=== PATIENT | male | born 1935 | race Caucasian/White ===

== ENCOUNTER → 2016-09-19 | Outpatient (CLI) | payer MEDICARE, BC ==
[2016-09-19 10:04] LABS: Blood Urea Nitrogen 38 mg/dL (9-20); Non-African American GFR(MDRD) >60 (>60 ml/min/1.73 sqM)
--- NOTE | 2016-09-19 11:17 | CT ---
EXAMINATION TYPE: CT angio thoracic/abd aorta DATE OF EXAM: 09/19/2016 11:06 AM COMPARISON: 09/26/2015 HISTORY: AAA CT DLP: 1546 mGycm CONTRAST: CTA thoracic and abdominal aorta with 3-D reconstruction is performed and without and with IV Contras t, patient injected with 100 mL of Omnipaque 350. Contrast CTA of the thoracic and abdominal aorta was performed from the lung apex through the base of the pelvis. 3-D reconstruction imaging obtained at a separate workstation. CT Chest: THORACIC AORTA: There is evidence for ascending thoracic aortic aneurysm at 5 cm AP dimension is unch anged from prior study. There is no evidence for dissection. Atheromatous change is noted of the thor acic aorta as well as ectasia of the distal descending thoracic aorta. Thoracic aorta at the level of the aortic hiatus measures 3.7 cm unchanged from prior study. No evidence for Aortic collection. Branch vessels are patent. LUNGS: The lungs are clear and free of infiltrate or atelectasis. No pulmonary nodule or mass is det ected. No pleural effusion. Mild fibrotic change left lower lobe. MEDIASTINUM: The heart is enlarged . No evidence for mediastinal mass or adenopathy. HILAR STRUCTURES: No evidence for mass. No hilar adenopathy is appreciated. OTHER: No significant abnormality. CONTRAST CT ABDOMEN AND PELVIS ABDOMENAL AORTA: No evidence for abdominal aortic aneurysm. No dissection. Iliac vessels are symmet deandra and patent. Atheromatous change is noted. Patent celiac, SMA RABIA and renal arteries although ca lcified plaque is noted at their origins. LIVER/GB- No significant abnormality is seen. PANCREAS- No significant abnormality is seen. SPLEEN- No significant abnormality is seen. ADRENALS-nodular thickening of the adrenal glands may reflect adenoma or hyperplasia. KIDNEYS/BLADDER-bilateral renal cystic changes noted. Renal parenchymal thinning seen bilaterally. BOWEL-sigmoid diverticulosis without diverticulitis. GENITAL ORGANS: No gross abnormality seen. LYMPH NODES- No greater than 1cm abdominal or pelvic lymph nodes areappreciated. OSSEOUS STRUCTURES- No significant abnormality is seen. OTHER- No significant abnormality is seen. IMPRESSION- 1. Stable ascending thoracic aortic aneurysm with ectasia of the descending thoracic aorta. 2. Nonaneurysmal change of the abdominal aorta. Atheromatous changes and calcified plaque at the orig ins of the SMA and renal arteries.
== END | disposition home or self-care (01) ==
LOC: RADCTMAIN 09:22
PROVIDERS: ATTEND Internal Medicine Interventional Cardiology
DX: I71.2 Thoracic aortic aneurysm, without rupture (principal); I70.1 Atherosclerosis of renal artery; I70.8 Atherosclerosis of other arteries
CPT/HCPCS: 82565; 84520; 75635; 71275; 36415; Q9967

== ENCOUNTER → 2016-09-25 | Outpatient (CLI) | payer MEDICARE, BC ==
[2016-09-25 10:53] LABS: Anion Gap 10 mmol/L; Blood Urea Nitrogen 35 mg/dL (9-20); Calcium 9.9 mg/dL (8.4-10.2); Carbon Dioxide 29 mmol/L (22-30); Chloride 103 mmol/L (98-107); Glucose 124 mg/dL (74-99); Non-African American GFR(MDRD) 58 (>60 ml/min/1.73 sqM); Potassium 5.2 mmol/L (3.5-5.1); Sodium 142 mmol/L (137-145)
== END | disposition home or self-care (01) ==
LOC: LABWHC1 10:00
PROVIDERS: ATTEND Internal Medicine Interventional Cardiology
DX: I48.2 Chronic atrial fibrillation (principal)
CPT/HCPCS: 36415; 80048; 84443

== ENCOUNTER → 2017-11-12 | Outpatient (CLI) | payer MEDICARE, BC ==
[2017-11-12 10:10] LABS: Blood Urea Nitrogen 20 mg/dL (9-20)
--- NOTE | 2017-11-12 12:46 | CT ---
EXAMINATION TYPE: CT angio chest DATE OF EXAM: 11/12/2017 COMPARISON: CTA aorta September 19, 2016 and older studies HISTORY: Aortic aneurysm without rupture per order. CT DLP: 1078 mGycm. Automated Exposure Control for Dose Reduction was Utilized. CONTRAST: CTA scan of the thorax is performed without and with IV Contrast, patient injected with 100 ml mL of Isovue 370, aneurysm protocol. Three-D Images are created on independent workstation and reviewed. FINDINGS: LUNGS: Mild to moderate underlying emphysematous change most prominent in the upper lungs is redemons trated. There is bibasilar scarring and/or atelectasis. There is no pleural effusion or pneumothora x seen bilaterally. The tracheobronchial tree is patent. MEDIASTINUM: There are no greater than 1 cm hilar or mediastinal lymph nodes. No pericardial effusi on is seen. Cardiomegaly is redemonstrated. There is severe three-vessel coronary artery calcificatio n which is noted marker for coronary artery disease, there is probable stent in the proximal LAD. There is persistent aneurysm of the ascending aorta measuring up to 5.2 cm in diameter axial image 27 slightly larger versus most recent study. No aneurysmal extension into arch or descending aorta is p resent. There is persistent moderate mixed plaque in the arch and descending aorta. Some ectatic cour se of the distal thoracic aorta is redemonstrated. No linear hypodensity to suggest dissection is see n. Adjacent main pulmonary artery remains dilated at 4.2 cm axial image 27, CT findings consistent wi th underlying pulmonary artery hypertension. OTHER: Slight thickening to both adrenal glands, left greater than right favors hyperplasia. There ar e a few simple appearing cysts redemonstrated throughout the right kidney with cortical thinning. Cor tical thinning with exophytic septated cyst anteriorly in the left kidney that is stable. Bilateral g ynecomastia is redemonstrated. There is multilevel moderate to severe spurring in the thoracic spine with multilevel disc space narrowing and vacuum disc phenomenon. Some scattered colonic diverticula a re redemonstrated. IMPRESSION: Slight interval increase in size of ascending aortic aneurysm measuring 5.2 cm in size cu rrently.
== END | disposition home or self-care (01) ==
LOC: RADCTMAIN 09:24
PROVIDERS: ATTEND Internal Medicine Interventional Cardiology
DX: I71.9 Aortic aneurysm of unspecified site, without rupture (principal); I71.2 Thoracic aortic aneurysm, without rupture
CPT/HCPCS: 82565; 84520; 71275; 36415; Q9967

== ENCOUNTER → 2018-12-08 | Outpatient (CLI) | payer MEDICARE, BC ==
[2018-12-08 11:20] LABS: African American GFR (CKD) >90 (>60 ml/min/1.73 sqM); Blood Urea Nitrogen 25 mg/dL (9-20)
--- NOTE | 2018-12-08 23:48 | CT ---
EXAMINATION TYPE: CT angio chest DATE OF EXAM: 12/08/2018 COMPARISON: 11/12/2017 HISTORY: 83-year-old male Thoracic aortic aneurysm without rupture TECHNIQUE: Contiguous axial scanning of the chest performed with IV Contrast, patient injected with 1 00 mL of Isovue 370. Coronal/sagittal MIP reconstructions performed. 3-D reconstructions generated on a dedicated independent workstation. CT DLP: 592.1 mGycm Automated exposure control for dose reduction was used. FINDINGS: Heart is mildly enlarged without pericardial effusion. Extensive coronary vessel calcifications are p resent. Aortic root remains mildly aneurysmal at 4.3 cm. Ascending aorta aneurysmal at 5.1 cm. Proximal arch aneurysmal at 5.0 cm. Conventional contrast branching anatomy with mild to moderate atherosclerotic calcifications. Upper descending thoracic aorta aneurysmal at 3.6 cm. The mid to lower descending thoracic aorta is tortuous measuring 3.5 and 3.9 cm at their mid and dist al aspects, unchanged. Moderate atherosclerotic calcifications abdominal aorta. Colonic diverticulosis with mild to moderate stool burden and bilateral renal cysts redemonstrated. Large caliber to the main right and left pulmonary arteries measuring up to 3.5 cm. Mild bilateral gynecomastia. No thoracic lymphadenopathy. Mild diffuse bronchial wall thickening and mild to moderate emphysematous change. No consolidation or pleural effusion. Some interstitial changes redemonstrated in lower lungs suggesting chronic interst itial fibrotic change. Bones: End-stage degenerative change of both shoulders. Moderate degenerative disc disease throughout . IMPRESSION: 1. RELATIVELY STABLE ANEURYSMAL THORACIC AORTA (ROOT 4.37 M, ASCENDING 5.1 CM PROXIMAL ARCH 5.0 CM, U PPER DESCENDING 3.6 CM, AND LOWER DESCENDING 3.9 CM). 2. COPD WITH MILD TO MODERATE EMPHYSEMA AND PULMONARY ARTERIAL HYPERTENSION. 3. CAD.
== END | disposition home or self-care (01) ==
LOC: RADCTMAIN 10:38
PROVIDERS: ATTEND Internal Medicine Interventional Cardiology
DX: I71.2 Thoracic aortic aneurysm, without rupture (principal); J43.9 Emphysema, unspecified; I27.21 Secondary pulmonary arterial hypertension; I25.10 Atherosclerotic heart disease of native coronary artery without angina pectoris
CPT/HCPCS: 82565; 84520; 71275; 36415; Q9967

== ENCOUNTER 2020-01-29 14:11 | Emergency (ER) | payer MEDICARE, BC ==
[2020-01-29 14:21] VITALS: RESP 18
[2020-01-29] MEDS ORDERED: LIDOCAINE 1%-EPI 1:100,000 20 ML VIAL SQ STA (14:46)
[2020-01-29] MEDS ORDERED: DIPH,PERTUS(ACELL)TETVAC-LF 0.5 ML VIAL IM ONE (14:46)
--- NOTE | 2020-01-29 15:01 | ED ---
General Adult HPI - General Source: patient, RN notes reviewed Mode of arrival: wheelchair Limitations: no limitations <Bam Hall - Last Filed: 01/29/20 15:34> <Enoch Michael - Last Filed: 01/29/20 15:39> - General Chief complaint: Head Injury Stated complaint: Fall - Head Lac Time Seen by Provider: 01/29/20 14:31 - History of Present Illness Initial comments: 84-year-old male currently taking Eliquis for atrial fibrillation presents to the emergency room for a chief complaint of head injury. Patient reports that he was having a great day. States he went to [employer] to drop off a donation and then went to the grocery store. Reports that he was carrying in a few bags of groceries. He went to grab onto a pole to take a step and fell after losing his balance. He hit left side of his head. Patient did not fall down a stair. Patient denies neck pain. Denies any other injuries. Reports that he did not lose consciousness. He could not get the bleeding to stop so decided to be evaluated. Patient has no other complaints at this time including shortness of breath, chest pain, abdominal pain, nausea or vomiting, headache, or visual changes. (Bam Hall) - Related Data Home Medications Medication Instructions Recorded Confirmed Acetaminophen Tab [Tylenol] 500 mg PO TID PRN 10/04/13 08/24/15 Doxazosin Mesylate [Cardura Xl] 4 mg PO DAILY 10/04/13 08/23/15 Lisinopril-Hctz 20-12.5 mg 1 tab PO DAILY 10/04/13 08/23/15 [Zestoretic 20-12.5] Spironolactone [Aldactone] 25 mg PO DAILY 10/04/13 08/23/15 Carbidopa-Levodopa 25-100 mg 0.5 tab PO TID 04/26/15 08/23/15 [Sinemet 25-100 mg] Multivitamins, Thera [Multivitamin 1 tab PO DAILY 04/26/15 08/23/15 (formulary)] nadoloL [Corgard] 20 mg PO HS 07/06/15 08/24/15 Atorvastatin [Lipitor] 40 mg PO DAILY 08/01/15 08/24/15 Carbidopa 25 mg PO BID 08/23/15 08/23/15 Previous Rx's Medication Instructions Recorded Apixaban [Eliquis] 2.5 mg PO BID tablet 05/01/15 Amiodarone [Cordarone] 200 mg PO DAILY #90 tab 08/04/15 Allergies Allergy/AdvReac Type Severity Reaction Status Date / Time No Known Allergies Allergy Verified 01/29/20 14:16 Review of Systems ROS Other: All systems not noted in ROS Statement are negative. <Bam Hall P - Last Filed: 01/29/20 15:34> ROS Other: All systems not noted in ROS Statement are negative. <Enoch Michael - Last Filed: 01/29/20 15:39> ROS Statement: Those systems with pertinent positive or pertinent negative responses have been documented in the HPI. Past Medical History Past Medical History: Atrial Fibrillation, Hypertension, Neurologic Disorder, Prostate Disorder Additional Past Medical History / Comment(s): BPH, L knee pain, Parkinson's History of Any Multi-Drug Resistant Organisms: None Reported Past Surgical History: Joint Replacement, Tonsillectomy Additional Past Surgical History / Comment(s): Total L knee arthroplasty, colonoscopy 2008, bilateral cataract removal. Past Anesthesia/Blood Transfusion Reactions: No Reported Reaction Additional Past Anesthesia/Blood Transfusion Reaction / Comment(s): Pt states he has never received blood. Past Psychological History: No Psychological Hx Reported Past Alcohol Use History: Rare Past Drug Use History: None Reported - Past Family History Father History Unknown: Yes Family Medical History: Unable to Obtain Additional Family Medical History / Comment(s): Pt did not grow up knowing father. Mother Family Medical History: No Reported History Additional Family Medical History / Comment(s): Mother was healthy. She at age 76yrs. <Bam Hall P - Last Filed: 01/29/20 15:34> General Exam Limitations: no limitations General appearance: alert, in no apparent distress Head exam: Present: normocephalic. Absent: atraumatic (patient has a 4 cm laceration noted to R occipital parietal skull) Eye exam: Present: normal appearance, PERRL, EOMI. Absent: scleral icterus, conjunctival injection, periorbital swelling ENT exam: Present: normal exam, normal oropharynx, mucous membranes moist, TM's normal bilaterally, normal external ear exam Neck exam: Present: normal inspection, full ROM. Absent: tenderness (no cervical spine tenderness), meningismus, lymphadenopathy Respiratory exam: Present: normal lung sounds bilaterally. Absent: respiratory distress, wheezes, rales, rhonchi, stridor Cardiovascular Exam: Present: regular rate, normal rhythm, normal heart sounds. Absent: systolic murmur, diastolic murmur, rubs, gallop, clicks GI/Abdominal exam: Present: soft, normal bowel sounds. Absent: distended, tenderness, guarding, rebound, rigid Extremities exam: Absent: other (no traumatic injuries) Neurological exam: Present: alert, oriented X3, other (GCS 15) <Bam Hall P - Last Filed: 01/29/20 15:34> Course Vital Signs 01/29/20 14:14 Temperature 98.6 F Pulse Rate 75 Respiratory 18 Rate Blood Pressure 158/81 O2 Sat by Pulse 98 Oximetry Procedures - Laceration Laceration #1 Consent Obtained: verbal consent Indication: laceration Site: scalp Size (cm): 4 Description: linear Depth: simple, single layer Anesthetic Used: lidocaine 1%, with epi Anesthesia Technique: local infiltration Amount (mls): 4 Pre-repair: wound explored, irrigated extensively, deep structures intact Type of Sutures: other (Juan Ramon) Number of Sutures: 7 Technique: simple, interrupted Patient Tolerated Procedure: well, no complications <Bam Hall P - Last Filed: 01/29/20 15:34> Medical Decision Making <Bam Hall P - Last Filed: 01/29/20 15:34> <Enoch Michael N - Last Filed: 01/29/20 15:39> - Medical Decision Making CT brain shows age-related atrophic and chronic small vessel ischemic changes without acute intracranial process. CT cervical spine shows no evidence for acute fracture or subluxation. [place] were used to approximate the wound margins after thorough irrigation with saline pressure. Patient will get a ride home from his son given he did hit his head and could develop symptoms of concussion. I did discuss to return here. Worsening symptoms. Otherwise he will follow-up with his doctor in one to 2 days. (Bam Hall) 84-year-old male with mechanical fall, head injury, head CT performed, negative for intracranial hemorrhage or mass effect. Patient is otherwise well- appearing, resting comfortably. The laceration was repaired with juan ramon. He will follow-up with his primary care physician and return with worsening or changing symptoms. (Enoch Michael) Disposition Is patient prescribed a controlled substance at d/c from ED?: No Time of Disposition: 15:32 <Bam Hall - Last Filed: 01/29/20 15:34> <Enoch Michael - Last Filed: 01/29/20 15:39> Clinical Impression: Head injury, Laceration Disposition: HOME SELF-CARE Condition: Good Instructions (If sedation given, give patient instructions): Laceration (ED), Head Injury (ED), Staple Care (ED) Additional Instructions: Please keep the area clean and dry. You can take short showers. Follow-up with your doctor in one to 2 days for a recheck. If you have any worsening symptoms return to the emergency room. Otherwise return in 7-10 days for staple removal. Referrals: Howei Martinez MD [Primary Care Provider] - 1-2 days
--- NOTE | 2020-01-29 15:15 | CT ---
EXAMINATION TYPE: CT brain bernard marcial DATE OF EXAM: 01/29/2020 COMPARISON: None HISTORY: Trip and fall. Head injury. CT DLP: 1485.[address] of the brain was performed. The ventricles, basal cisterns and sulci overlying the cerebral convexities demonstrate mild enlargem ent. There is no evidence for intracranial hemorrhage or sulcal effacement. There is decreased attenuatio n about the periventricular white matter and deep white matter of both cerebral hemispheres, compatib le with chronic small vessel ischemia. No mass effects are seen. If symptoms persist consider MRI. Osseous calvarium is intact. IMPRESSION: 1. Age related atrophic and chronic small vessel ischemic change without acute intracranial process seen at this time. CT Cervical Spine: Unenhanced CT of the cervical spine was performed with bone and soft tissue window settings submitted . Coronal and sagittal reconstruction is obtained. There is normal alignment and prevertebral soft tissues. No evidence for acute cervical fracture . Scattered degenerative disc disease and spondylosis. Biapical scarring. IMPRESSION: 1. No evidence for acute fracture or subluxation of the cervical spine.
[2020-01-29 15:41] VITALS: BP 123/98; PULSE 54; TEMP 98.3
== END 2020-01-29 15:40 | disposition home or self-care (01) ==
LOC: EC 14:11
DX: S01.01XA Laceration without foreign body of scalp, initial encounter (principal); I48.91 Unspecified atrial fibrillation; I10 Essential (primary) hypertension; N40.0 Benign prostatic hyperplasia without lower urinary tract symptoms; G20 Parkinson's disease; Z23 Encounter for immunization; Z79.01 Long term (current) use of anticoagulants; Z79.899 Other long term (current) drug therapy; Z98.42 Cataract extraction status, left eye; Z98.41 Cataract extraction status, right eye; Z96.652 Presence of left artificial knee joint; W01.10XA Fall on same level from slipping, tripping and stumbling with subsequent striking against unspecified object, initial encounter; Y93.39 Activity, other involving climbing, rappelling and jumping off; Y92.89 Other specified places as the place of occurrence of the external cause
CPT/HCPCS: 12002; 70450; 72125; 90471; 90715; 99283

== ENCOUNTER 2020-10-25 15:31 | Inpatient (IN) | payer MEDICARE, BC ==
[2020-10-28 08:38] VITALS: BP 112/64; PULSE 103; RESP 16; TEMP 97.9
== END 2020-10-28 12:17 | disposition home health service (06) | DRG 281 ==
LOC: EC 15:31 → 3SCARD 18:47
PROVIDERS: ADMIT Internal Medicine; ATTEND Internal Medicine
DX: I21.4 Non-ST elevation (NSTEMI) myocardial infarction (principal); I50.22 Chronic systolic (congestive) heart failure; E78.5 Hyperlipidemia, unspecified; G20 Parkinson's disease; I11.0 Hypertensive heart disease with heart failure; I25.10 Atherosclerotic heart disease of native coronary artery without angina pectoris; I25.5 Ischemic cardiomyopathy; I44.4 Left anterior fascicular block; I27.20 Pulmonary hypertension, unspecified; I08.1 Rheumatic disorders of both mitral and tricuspid valves; R39.2 Extrarenal uremia; I48.0 Paroxysmal atrial fibrillation; N40.0 Benign prostatic hyperplasia without lower urinary tract symptoms; Z79.01 Long term (current) use of anticoagulants; Z79.899 Other long term (current) drug therapy; Z87.891 Personal history of nicotine dependence; Z96.652 Presence of left artificial knee joint; Z60.2 Problems related to living alone; Z98.42 Cataract extraction status, left eye; Z98.41 Cataract extraction status, right eye; Z98.890 Other specified postprocedural states; Z90.89 Acquired absence of other organs
CPT/HCPCS: 36415; 71045; 80048; 80053; 83605; 83735; 83880; 84484; 85025; 85027; 85610; 85730; 87040; 93005; 93306; 94760; 99285

== ENCOUNTER 2020-11-14 12:25 | Inpatient (IN) | payer MEDICARE, BC ==
[2020-11-14] MEDS ORDERED: ASPIRIN 81 MG PO STA (13:15)
[2020-11-14] MEDS ORDERED: ATROPINE SULFATE 0.1 MG/ML 10ML SYRINGE IV STA ×2 (13:16→14:25)
[2020-11-14] MEDS ORDERED: LIDOCAINE 5% PATCH TOPICAL STA (13:18)
[2020-11-14 13:27] LABS: Basophils % (A) 0 %; Eosinophils # (A) 0.1 k/uL (0-0.7); Eosinophils % (A) 2 %; HCT 39.4 % (39.0-53.0); HGB 13.5 gm/dL (13.0-17.5); Lymphocytes # (A) 0.8 k/uL (1.0-4.8); Lymphocytes % (A) 12 %; MCH 32.6 pg (25.0-35.0); MCHC 34.2 g/dL (31.0-37.0); MCV 95.1 fL (80.0-100.0); Mean Platelet Volume 7.7; Monocytes # (A) 0.4 k/uL (0-1.0); Monocytes % (A) 6 %; Neutrophils # (A) 5.4 k/uL (1.3-7.7); Neutrophils % (A) 79 %; Platelet Count 149 k/uL (150-450); RBC 4.15 m/uL (4.30-5.90); RDW 13.6 % (11.5-15.5); WBC 6.9 k/uL (3.8-10.6)
[2020-11-14 13:39] LABS: Prothrombin Time 10.6 sec (9.0-12.0)
[2020-11-14 13:40] LABS: Partial Thromboplastin Time 23.3 sec (22.0-30.0)
[2020-11-14 13:43] LABS: ALT <6 U/L (4-49); AST 32 U/L (17-59); African American GFR (CKD) 61 (>60 ml/min/1.73 sqM); Albumin 3.8 g/dL (3.5-5.0); Alkaline Phosphatase 57 U/L (38-126); Anion Gap 4 mmol/L; Blood Urea Nitrogen 44 mg/dL (9-20); Calcium 9.9 mg/dL (8.4-10.2); Carbon Dioxide 31 mmol/L (22-30); Chloride 104 mmol/L (98-107); Glucose 105 mg/dL (74-99); Magnesium 2.2 mg/dL (1.6-2.3); Non-African American GFR(CKD) 53 (>60 ml/min/1.73 sqM); Potassium 4.8 mmol/L (3.5-5.1); Sodium 139 mmol/L (137-145); Total Bilirubin 1.2 mg/dL (0.2-1.3); Total Protein 6.2 g/dL (6.3-8.2)
--- NOTE | 2020-11-14 14:18 | XR ---
EXAMINATION TYPE: XR chest 1V portable DATE OF EXAM: 11/14/2020 COMPARISON: 10/25/2020 HISTORY: Chest pain TECHNIQUE: Single frontal view of the chest is obtained. FINDINGS: Low lung volumes. Heart size is grossly enlarged, stable. Perihilar interstitial prominenc e is suggestive of edema. Patchy left basilar airspace opacity may represent atelectasis or pneumonit is. Probable small bilateral pleural effusions. No pneumothorax. IMPRESSION: 1. Findings may represent early congestive heart failure. Patchy left basilar airspace opacity may re present atelectasis or pneumonitis.
[2020-11-14] MEDS ORDERED: HEPARIN SODIUM 1,000 UN/ML (10ML VL) IV PRN (15:04)
[2020-11-14] MEDS ORDERED: HEPARIN SODIUM 1,000 UN/ML (10ML VL) IV ONE (15:04)
[2020-11-14] MEDS ORDERED: HEPARIN SOD,PORK IN 0.45% NACL 25,000 UNIT in 0.45% NACL 1 250ML.BAG IV SCH (15:15)
[2020-11-14] MEDS ORDERED: ACETAMINOPHEN TAB 325 MG TAB PO PRN (15:26)
--- NOTE | 2020-11-14 15:44 | ED ---
Chest Pain HPI - General Chief Complaint: Chest Pain Stated Complaint: SOB Time Seen by Provider: 11/14/20 13:10 Source: patient Mode of arrival: ambulatory Limitations: no limitations - History of Present Illness Initial Comments: Patient is an 85-year-old male with past medical history remarkable for atrial fibrillation, heart failure, hypertension who presents emergency Department complaining of acute onset of shortness of breath and chest pressure sensation. This happened this morning. Patient's son brought him to the emergency department for evaluation. Patient has taken every one of his morning medications this morning including his beta bret. He recently was discharged from the hospital with cardiomyopathy. Troponin is also positive at that time. He was discharged on October 28. Patient states that this morning he had sudden onset of pressure sensation on the left side of his chest that has since somewhat improving as well as subjective shortness of breath. He states he was sitting down when this occurred. Denies any fevers, chills, cough. He denies any lightheadedness, blurry vision, abdominal discomfort, nausea, vomiting. Patient otherwise has no acute complaints at this time. Patient was brought for evaluation of this chest discomfort. He was found to be bradycardic into the low 40s when he arrived. Patient's son does have a list of prior vital signs taken over the last few weeks, and heart rate occasionally would dip into the low 40s and was consistently in the 50s and 60s. Patient otherwise has no acute complaints at this time. He has been compliant with all medications. - Related Data Home Medications Medication Instructions Recorded Confirmed Acetaminophen Tab [Tylenol] 1,000 mg PO Q6H PRN 10/04/13 11/14/20 Doxazosin Mesylate [Cardura Xl] 4 mg PO DAILY 10/04/13 11/14/20 Lisinopril-Hctz 20-12.5 mg 0.5 tab PO DAILY 10/04/13 11/14/20 [Zestoretic 20-12.5] Spironolactone [Aldactone] 12.5 mg PO DAILY 10/04/13 11/14/20 Carbidopa-Levodopa 25-100 mg 1 tab PO BID 04/26/15 11/14/20 [Sinemet 25-100 mg] Multivitamins, Thera [Multivitamin 1 tab PO DAILY 04/26/15 11/14/20 (formulary)] nadoloL [Corgard] 10 mg PO BID 07/06/15 11/14/20 Atorvastatin [Lipitor] 40 mg PO DAILY 08/01/15 11/14/20 Carbidopa-Levodopa ER 25-100Mg 1 tab PO BID 10/25/20 11/14/20 [Sinemet CR 25-100 mg] traZODone HCL 50 mg PO HS PRN 10/25/20 11/14/20 Previous Rx's Medication Instructions Recorded Apixaban [Eliquis] 2.5 mg PO BID tablet 05/01/15 Aspirin 81 mg PO DAILY chew 10/28/20 Isosorbide Mononitrate ER [Imdur] 30 mg PO DAILY #30 tab.er.24h 10/28/20 Allergies Allergy/AdvReac Type Severity Reaction Status Date / Time No Known Allergies Allergy Verified 11/14/20 12:40 Review of Systems ROS Statement: Those systems with pertinent positive or pertinent negative responses have been documented in the HPI. Review of Systems: CONST: Denies fever EYES: Denies blurry vision ENT: Denies nasal congestion C/V: Endorses chest pain RESP: Endorses shortness of breath GI: Denies abdominal pain : Denies dysuria SKIN: Denies rash. MSK: Denies joint pain. NEURO: Denies headache ROS Other: All systems not noted in ROS Statement are negative. EKG Findings - EKG Comments: EKG Findings:: 12-lead Electrocardiogram Interpretation Note. EKG was reviewed and interpreted by myself. 12-lead ECG performed at 1301 is interpreted by me as revealing sinus bradycardia with premature supraventricular complexes at a rate of 44 beats per minute. [place] is normal. RI interval is 202 ms, QRS duration is 110 ms, QTc is 417 ms.. There are isolated T-wave inversions in lead V6 and III.. R wave progression across the precordium was satisfactory. By my interpretation this EKG is non-diagnostic for acute ischemia. Past Medical History Past Medical History: Atrial Fibrillation, Hypertension, Neurologic Disorder, Prostate Disorder Additional Past Medical History / Comment(s): BPH, L knee pain, Parkinson's History of Any Multi-Drug Resistant Organisms: None Reported Past Surgical History: Joint Replacement, Tonsillectomy Additional Past Surgical History / Comment(s): Total L knee arthroplasty, c olonoscopy 2008, bilateral cataract removal. Past Anesthesia/Blood Transfusion Reactions: No Reported Reaction Additional Past Anesthesia/Blood Transfusion Reaction / Comment(s): Pt states he has never received blood. Past Psychological History: No Psychological Hx Reported Smoking Status: Former smoker Past Alcohol Use History: Rare Past Drug Use History: None Reported - Past Family History Father History Unknown: Yes Family Medical History: Unable to Obtain Additional Family Medical History / Comment(s): Pt did not grow up knowing fathe r. Mother Family Medical History: No Reported History Additional Family Medical History / Comment(s): Mother was healthy. She at age 76yrs. General Exam - General Exam Comments Initial Comments: General: Appears in no acute distress. HEAD: Normal with no signs of head trauma. EYES: PERRLA, EOMI, conjunctiva normal, no discharge. ENT: Hearing grossly intact, normal oropharynx. RESPIRATORY: Clear breath sounds bilaterally. No wheezes, rales, or rhonchi. C/V: Patient has sinus bradycardia with a regular rhythm. S1 and S2 auscultated. No peripheral edema. Peripheral pulses are 2+ and intact throughout. ABD: Abd is soft, nontender, nondistended EXT: Normal range of motion, no obvious deformity SKIN: No rashes or lesions observed on exposed skin. NEURO: Alert and oriented 4. Able to move all 4 extremities. No obvious sensory deficits. Limitations: no limitations Course Vital Signs 11/14/20 11/14/20 11/14/20 12:40 13:09 13:30 Temperature 97.4 F L Pulse Rate 51 L 42 L 45 L Pulse Rate [ [employer] ] Respiratory 16 18 18 Rate Blood Pressure 96/93 136/101 132/89 O2 Sat by Pulse 98 100 99 Oximetry 11/14/20 11/14/20 11/14/20 14:08 14:57 16:51 Temperature 97.6 F Pulse Rate 40 L 40 L 41 L Pulse Rate [ 40 L [employer] ] Respiratory 16 16 16 Rate Blood Pressure 127/80 135/98 O2 Sat by Pulse 100 100 98 Oximetry Chest Pain MDM - Core Measures AMI Core Measures Followed: Yes - MDM Based on the patient's presentation and physical exam, I'm concerned for possible cardiogenic cause for his chest pressure as well as shortness of breath. Patient states that the shortness of breath is improved at this point, however I would still like to obtain a cardiac workup including EKG, chest x- ray, troponin, basic laboratory studies. He'll be connected to continuous cardiac monitoring. As he is having some symptoms at this time with bradycardia dipping occasionally into the low 40s and 39 bpm, I will administered 0.5 mg of atropine. Also be given 325 mg of aspirin. He is complaining of some right lower back pain that is chronic and is asking for a pain patch, and therefore lidocaine patch will be administered. He does have a history of sciatica in there. Patient was in agreement with this plan. Patient's heart score is high. Patient's EKG shows sinus bradycardia and is nondiagnostic for acute ischemia at this time. Patient's chest x-ray reveals a patchy left basilar airspace opacity that may represent atelectasis or pneumonitis. Laboratory studies are remarkable for a mild thrombocyte teetee of 129, and elevated bicarbonate 31, and an elevated troponin of 0.061. Reevaluation, patient once again was bradycardiac at 39, 0.5 mg of atropine was once again administered. Patient's heart rate after this remained in the high 40s to 50s. He remained a symptomatically and states that his chest discomfort as well as the shortness of breath is resolved. Vital signs have remained stable. I did do a point of care echo to check for signs of volume overload, and it does appear that the patient can handle 1 L fluid bolus which was administered. He has no B lines to suggest pulmonary edema. IVC is within normal limits. On reevaluation, the patient remained stable. I did discuss with him that it does appear that he is having a NSTEMI and I would like to admit him to the hospital for further management. He was in agreement with this plan. Patient was started on a heparin drip. I consulted cardiology and they were in agreement with the plan. Also contacted the admitting physician who accepted the patient. Patient will be administered on telemetry. Patient was admitted in serious condition. Disposition Clinical Impression: NSTEMI (non-ST elevated myocardial infarction), Bradycardia, Thrombocytopenia, Chest pain Disposition: ADMITTED IP TO THIS HOSP Condition: Serious Referrals: Cira Ross MD [Primary Care Provider] - 1-2 days Decision to Admit Reason: Admit from EC
[2020-11-14] MEDS ORDERED: NALOXONE 0.4 MG/ML 1 ML VIAL IV PRN (16:08)
--- NOTE | 2020-11-14 16:46 | P.HPIM ---
History of Present Illness H&P Date: 11/14/20 Chief Complaint: Chest pressure, dyspnea 85-year-old man with medical history of paroxysmal atrial fibrillation on Eliquis, ischemic cardiomyopathy with ejection fraction 45-50%, CAD, hypertension, hyperlipidemia, CKD stage III, BPH, Parkinsons presented for chest pressure and dyspnea. History is provided by patient's son who is at bedside, due to patient being moderate historian. History also supplemented from chart review. Patient was recently admitted and discharged approximately 3 weeks ago for myocardial infarction without ST elevation which was medically managed due to history of tortuous coronary arteries. By the day of discharge he was doing well, able to ambulate without chest pain. Echocardiogram at that time revealed improved ejection fraction to 40-45% from his prior in 2016 which was 30-35%. He has been in his usual state of health, until approximately 2 days ago according to his son. At that time, he started to develop some shortness of srinivas ath especially with exertion which was worse than his baseline. Last night, he also developed some shortness of breath while at rest. In addition, he started to notice chest pressure today. Given his constellation of symptoms, the son thought it would be prudent to have patient evaluated in the emergency room. Patient denies fevers, chills, nausea, vomiting, cough, palpitations, abdominal pain, consultation, diarrhea, numbness/weakness. Patient does report mild weight gain of 5 pounds. Patient denies orthopnea. Patient reports mild chest pressure, dyspnea. In the emergency room, patient was afebrile, normotensive, but noted to have bradycardia down to the 30s and received 2 pushes of atropine with heart rates increasing to mid to high 40s. Patient was in atrial fibrillation, then converted to sinus rhythm on telemetry. Chest x-ray demonstrated early congestive heart failure changes. Troponin was elevated. Review of Systems All Systems reviewed and pertinent positives and negatives noted in HPI, all other symptoms are negative Past Medical History Past Medical History: Atrial Fibrillation, Hypertension, Neurologic Disorder, Prostate Disorder Additional Past Medical History / Comment(s): BPH, L knee pain, Parkinson's History of Any Multi-Drug Resistant Organisms: None Reported Past Surgical History: Joint Replacement, Tonsillectomy Additional Past Surgical History / Comment(s): Total L knee arthroplasty, colonoscopy 2008, bilateral cataract removal. Past Anesthesia/Blood Transfusion Reactions: No Reported Reaction Additional Past Anesthesia/Blood Transfusion Reaction / Comment(s): Pt states he has never received blood. Past Psychological History: No Psychological Hx Reported Smoking Status: Former smoker Past Alcohol Use History: Rare Past Drug Use History: None Reported - Past Family History Father History Unknown: Yes Family Medical History: Unable to Obtain Additional Family Medical History / Comment(s): Pt did not grow up knowing father. Mother Family Medical History: No Reported History Additional Family Medical History / Comment(s): Mother was healthy. She at age 76yrs. Medications and Allergies Home Medications Medication Instructions Recorded Confirmed Type Acetaminophen Tab [Tylenol] 1,000 mg PO Q6H PRN 10/04/13 11/14/20 History Doxazosin Mesylate [Cardura Xl] 4 mg PO DAILY 10/04/13 11/14/20 History Lisinopril-Hctz 20-12.5 mg 0.5 tab PO DAILY 10/04/13 11/14/20 History [Zestoretic 20-12.5] Spironolactone [Aldactone] 12.5 mg PO DAILY 10/04/13 11/14/20 History Carbidopa-Levodopa 25-100 mg 1 tab PO BID 04/26/15 11/14/20 History [Sinemet 25-100 mg] Multivitamins, Thera [Multivitamin 1 tab PO DAILY 04/26/15 11/14/20 History (formulary)] Apixaban [Eliquis] 2.5 mg PO BID tablet 05/01/15 11/14/20 Rx nadoloL [Corgard] 10 mg PO BID 07/06/15 11/14/20 History Atorvastatin [Lipitor] 40 mg PO DAILY 08/01/15 11/14/20 History Carbidopa-Levodopa ER 25-100Mg 1 tab PO BID 10/25/20 11/14/20 History [Sinemet CR 25-100 mg] traZODone HCL 50 mg PO HS PRN 10/25/20 11/14/20 History Aspirin 81 mg PO DAILY chew 10/28/20 11/14/20 Rx Isosorbide Mononitrate ER [Imdur] 30 mg PO DAILY #30 tab.er.24h 10/28/20 11/14/20 Rx Allergies Allergy/AdvReac Type Severity Reaction Status Date / Time No Known Allergies Allergy Verified 11/14/20 12:40 Physical Exam Osteopathic Statement: *. No significant issues noted on an osteopathic structural exam other than those noted in the History and Physical/Consult. Vitals: Vital Signs Temp Pulse Pulse Resp BP Pulse Ox 11/14/20 14:57 40 L 16 135/98 100 11/14/20 14:08 97.6 F 40 L 40 L 16 127/80 100 11/14/20 13:30 45 L 18 132/89 99 11/14/20 13:09 42 L 18 136/101 100 11/14/20 12:40 97.4 F L 51 L 16 96/93 98 Intake and Output 11/14/20 11/14/20 11/14/20 06:59 14:59 22:59 Other: Weight 86.636 kg Gen: awake, alert HEENT: normocephalic, atraumatic, poor hearing acuity, moist mucous membranes, positive JVD Resp: Bilateral crackles in the posterior bases, equal chest expansion, adequate air exchange CVS: Irregular rhythm, bradycardic, no appreciable murmurs GI: soft, NTTP, ND, appropriate bowel sounds : no SPT, no CVAT, olivera catheter not present MSK: Trace to 1+ pitting edema, no clubbing Neuro: non-focal, moving all extremities Psych: cooperative, euthymic mood Results CBC & Chem 7: 11/14/20 13:04 11/14/20 13:04 Labs: Abnormal Lab Results - Last 24 Hours (Table) 11/14/20 11/14/20 11/14/20 Range/Units 13:04 13:04 13:04 RBC 4.15 L (4.30-5.90) m/uL Plt Count 149 L (150-450) k/uL Lymphocytes # 0.8 L (1.0-4.8) k/uL Carbon Dioxide 31 H (22-30) mmol/L BUN 44 H (9-20) mg/dL Glucose 105 H (74-99) mg/dL Troponin I 0.061 H* (0.000-0.034) ng/mL Total Protein 6.2 L (6.3-8.2) g/dL Assessment and Plan Assessment: Acute on chronic systolic heart failure exacerbation Elevated troponin, likely type II [place] -Admit to inpatient, telemetry -Cardiology consult -Strict I/os, daily weights -Lasix 40mg daily -Will not repeat echo due to recent exam -Trend troponins -EKG when necessary for bradycardia less than 40 or chest pain -Hold beta bret,, other AV claude blocking agents -Resume home aspirin, statin Paroxysmal atrial fibrillation with slow ventricular response -Patient sought was was held, started on heparin drip -Beta bret held as above -Monitoring on telemetry, EKG when necessary for bradycardia CAD HTN HLD Parkinson's BPH -Home meds reviewed and reconciled -Patient Eliquis was was held in lieu of heparin -Patient's combination lisinoprilhydrochlorothiazide pill was discontinued, lisinopril at equivalent dose was started -Nadolol was held as above -All other home medications resumed Patient is a full code Son is the DURABLE POWER OF [employer] PIPING DESIGNER DVT prophylaxis addressed with heparin drip
[2020-11-14] MEDS: CARBIDOPA-LEVODOPA 25-100 MG 1 EACH TAB PO SCH (20:20)
[2020-11-14] MEDS: CARBIDOPA-LEVODOPA ER 25-100MG 1 EACH TABLET.ER PO SCH (20:20)
[2020-11-14] MEDS: traZODone HCL 50 MG TAB PO PRN (20:20)
[2020-11-15 05:14] LABS: Basophils % (A) 0 %; Eosinophils # (A) 0.1 k/uL (0-0.7); Eosinophils % (A) 2 %; HCT 38.5 % (39.0-53.0); HGB 12.9 gm/dL (13.0-17.5); Lymphocytes # (A) 0.8 k/uL (1.0-4.8); Lymphocytes % (A) 13 %; MCH 32.1 pg (25.0-35.0); MCHC 33.5 g/dL (31.0-37.0); MCV 96.1 fL (80.0-100.0); Mean Platelet Volume 7.6; Monocytes # (A) 0.3 k/uL (0-1.0); Monocytes % (A) 5 %; Neutrophils % (A) 78 %; Platelet Count 138 k/uL (150-450); RBC 4.01 m/uL (4.30-5.90); RDW 13.4 % (11.5-15.5); WBC 6.4 k/uL (3.8-10.6)
[2020-11-15 05:27] LABS: Partial Thromboplastin Time 49.4 sec (22.0-30.0); Prothrombin Time 10.6 sec (9.0-12.0)
[2020-11-15 05:39] LABS: Calcium 9.5 mg/dL (8.4-10.2); Potassium 4.4 mmol/L (3.5-5.1)
[2020-11-15] MEDS ORDERED: lisinopriL 20 MG TAB PO SCH (09:00)
[2020-11-15] MEDS ORDERED: hydrALAZINE HCL 25 MG TAB PO SCH (09:00)
[2020-11-15] MEDS ORDERED: SPIRONOLACTONE 25 MG TAB PO SCH (09:00)
[2020-11-15] MEDS: SPIRONOLACTONE 25 MG TAB PO SCH (09:18)
[2020-11-15] MEDS: CARBIDOPA-LEVODOPA ER 25-100MG 1 EACH TABLET.ER PO SCH ×2 (09:18→20:33)
[2020-11-15] MEDS: MULTIVITAMINS, THERA 1 EACH TAB PO SCH (09:18)
[2020-11-15] MEDS: DOXAZOSIN 2 MG TAB PO SCH ×2 (09:18→20:33)
[2020-11-15] MEDS: ASPIRIN 81 MG PO SCH (09:18)
[2020-11-15] MEDS: APIXABAN 2.5 MG TABLET PO SCH ×2 (09:18→20:33)
[2020-11-15] MEDS: FUROSEMIDE 40 MG TAB PO SCH (09:19)
[2020-11-15] MEDS: ISOSORBIDE MONONITRATE ER 30 MG TAB.ER.24H PO SCH (09:19)
[2020-11-15] MEDS: ATORVASTATIN 40 MG TAB PO SCH (09:19)
[2020-11-15] MEDS: CARBIDOPA-LEVODOPA 25-100 MG 1 EACH TAB PO SCH ×2 (09:19→20:33)
[2020-11-15 09:26] LABS: T4, Free (Free Thyroxine) 1.57 ng/dL (0.78-2.19)
--- NOTE | 2020-11-15 10:51 | P.PN ---
Subjective Progress Note Date: 11/15/20 No new complaints. Breathing is better, chest pressure is improved. BP is now high. HRs improved. Objective - Vital Signs Vital signs: Vital Signs Temp 98.3 F 11/15/20 04:00 Pulse 68 11/15/20 04:00 Resp 16 11/15/20 04:00 BP 168/77 11/15/20 04:00 Pulse Ox 95 11/15/20 04:00 Intake & Output 11/14/20 11/15/20 11/15/20 18:59 06:59 18:59 Intake Total 120.878 Balance 120.878 Weight 86.636 kg 87.1 kg Intake: Intake, IV Titration 120.878 Amount Heparin Sod,Pork in 0.45% 120.878 NaCl 25,000 unit In 0.45 % NaCl 1 250ml.bag @ 11. 543 UNITS/KG/HR 10 mls/hr IV .Q24H BAKARI Rx#: [id number] Other: Voiding Method Toilet Urinal # Voids 1 - Exam Gen: awake, alert HEENT: normocephalic, atraumatic, poor hearing acuity, moist mucous membranes, positive JVD Resp: Bilateral crackles in the posterior bases, equal chest expansion, adequate air exchange CVS: Irregular rhythm, bradycardic, no appreciable murmurs GI: soft, NTTP, ND, appropriate bowel sounds : no SPT, no CVAT, olivera catheter not present MSK: Trace to 1+ pitting edema, no clubbing Neuro: non-focal, moving all extremities Psych: cooperative, euthymic mood - Labs CBC & Chem 7: 11/15/20 04:32 11/15/20 04:32 Labs: Abnormal Lab Results - Last 24 Hours (Table) 11/14/20 11/14/20 11/14/20 Range/Units 13:04 13:04 13:04 RBC 4.15 L (4.30-5.90) m/uL Hgb (13.0-17.5) gm/dL Hct (39.0-53.0) % Plt Count 149 L (150-450) k/uL Lymphocytes # 0.8 L (1.0-4.8) k/uL APTT (22.0-30.0) sec Carbon Dioxide 31 H (22-30) mmol/L BUN 44 H (9-20) mg/dL Glucose 105 H (74-99) mg/dL Troponin I 0.061 H* (0.000-0.034) ng/mL Total Protein 6.2 L (6.3-8.2) g/dL TSH (0.465-4.680) mIU/L 11/14/20 11/14/20 11/14/20 Range/Units 17:36 21:21 21:21 RBC (4.30-5.90) m/uL Hgb (13.0-17.5) gm/dL Hct (39.0-53.0) % Plt Count (150-450) k/uL Lymphocytes # (1.0-4.8) k/uL APTT 69.8 H (22.0-30.0) sec Carbon Dioxide (22-30) mmol/L BUN (9-20) mg/dL Glucose (74-99) mg/dL Troponin I 0.065 H* 0.066 H* (0.000-0.034) ng/mL Total Protein (6.3-8.2) g/dL TSH (0.465-4.680) mIU/L 11/15/20 11/15/20 11/15/20 Range/Units 04:32 04:32 04:32 RBC 4.01 L (4.30-5.90) m/uL Hgb 12.9 L (13.0-17.5) gm/dL Hct 38.5 L (39.0-53.0) % Plt Count 138 L (150-450) k/uL Lymphocytes # 0.8 L (1.0-4.8) k/uL APTT 49.4 H (22.0-30.0) sec Carbon Dioxide 31 H (22-30) mmol/L BUN 44 H (9-20) mg/dL Glucose 112 H (74-99) mg/dL Troponin I (0.000-0.034) ng/mL Total Protein (6.3-8.2) g/dL TSH (0.465-4.680) mIU/L 11/15/20 Range/Units 04:32 RBC (4.30-5.90) m/uL Hgb (13.0-17.5) gm/dL Hct (39.0-53.0) % Plt Count (150-450) k/uL Lymphocytes # (1.0-4.8) k/uL APTT (22.0-30.0) sec Carbon Dioxide (22-30) mmol/L BUN (9-20) mg/dL Glucose (74-99) mg/dL Troponin I (0.000-0.034) ng/mL Total Protein (6.3-8.2) g/dL TSH 0.422 L (0.465-4.680) mIU/L Assessment and Plan Assessment: Acute on chronic systolic heart failure exacerbation Elevated troponin, likely type II [place] -Admit to inpatient, telemetry -Cardiology consult --> med changes as reflected below in home meds section -Strict I/os, daily weights -Lasix 40mg daily -Will not repeat echo due to recent exam -Trend troponins -EKG when necessary for bradycardia less than 40 or chest pain -Hold beta bret, other AV claude blocking agents -Resume home aspirin, statin Paroxysmal atrial fibrillation with slow ventricular response -Patient sought was was held, started on heparin drip -Beta bret held as above -Monitoring on telemetry, EKG when necessary for bradycardia CAD HTN HLD Parkinson's BPH -Home meds reviewed and reconciled -Patient Eliquis was was held in lieu of heparin -heparin d/c'd, restarted eliquis -Patient's combination lisinoprilhydrochlorothiazide pill was discontinued, lisinopril at equivalent dose was started -lisinopril d/c'd, patient started on entresto by cardiology -hydralazine 25mg TID was started for BP and systolic HF -Nadolol was held as above -will initiate low dose coreg on 11/16 if HRs tolerate after nadolol washes out -All other home medications resumed Patient is a full code Son is the DURABLE POWER OF GLASS BLOCK INSTALLER DVT prophylaxis addressed with heparin drip
--- NOTE | 2020-11-15 11:00 | P.CRDCN ---
History of Present Illness History of present illness: HISTORY OF PRESENTING ILLNESS This is a pleasant 85-year-old male past medical history significant for coronary artery disease, hypertension, thoracic aortic aneurysm, dyslipidemia and paroxysmal atrial fibrillation status post cardioversion 2015. He follows in the office with Dr. Alarcon. We have been asked to see in consultation for bradycardia and elevated troponins. He was just discharged from the hospital for NSTEMI 10/28/2020. The patient, his family and Dr. Alarcon decide d together at that time that medical therapy was the best approach. He returned to the hospital with symptoms of shortness of breath and chest tightness. Chest x-ray reveals early congestive heart failure. EKG reveals sinus bradycardia with left anterior fasicular block with heart rate of 44. Telemetry tracings reveal persistent sinus bradycardia with rates in the mid 40s with no significant pauses. Laboratory data reviewed, WBC 6.4, hemoglobin 12.9, platelets 138, sodium 141, potassium 4.4, creatinine 1.13, magnesium 2.2, troponin 0.061, 0.0 65, 0.0 66, TSH 0.422 and free T4 1.57. Current daily cardiac medications include aspirin 81 mg daily, eliquis 2.5 mg BID, atorvastatin 40 mg daily, imdur 30 mg daily, lisinopril/hctz 20/12.5mg 1/2 tab daily, aldactone 12.5 mg dialy and nadolol 10 mg BID. He was last cathed in 2016 revealing a calcified left coronary system with mild-moderate disease of thet LAD and circumflex. Most recent echocardiom performed earlier this month revealed impaired LV systolic function with EF 40-45%, basal inferior, basal inferior septal, mid inferior, mid inferior septal wall motion hypokinesia, mild MR and mild TR. REVIEW OF SYSTEMS At the time of my exam: CONSTITUTIONAL: Denies fever or chills. CARDIOVASCULAR: Denies chest pain, shortness of breath, orthopnea, PND or palpitations. RESPIRATORY: Denies cough. GASTROINTESTINAL: Denies abdominal pain, diarrhea, constipation, nausea or vomiting. MUSCULOSKELETAL: Denies myalgias. NEUROLOGIC: Denies numbness, tingling, headacbe or weakness. ENDOCRINE: Denies fatigue, weight change, polydipsia or polyurina. GENITOURINARY: Denies burning, hematuria or urgency with micturation. HEMATOLOGIC: Denies history of anemia or bleeding. PHYSICAL EXAMINATION Blood pressure 168/77 heart rate 68 afebrile and maintaining oxygen saturation on room air. CONSTITUTIONAL: No apparent distress. HEENT: Head is normocephalic. Pupils are equal, round. Sclerae anicteric. Mucous membranes of the mouth are moist. No JVD. No carotid bruit. CHEST EXAMINATION: Bibsailar rales, no wheezes or rhonchi. No chest wall t enderness is noted on palpation or with deep breathing. HEART EXAMINATION: Regular rate and rhythm. S1, S2 heard. Systolic ejection murmur at the left sternal border, no gallops or rub. ABDOMEN: Soft, nontender. Positive bowel sounds. EXTREMITIES: 2+ peripheral pulses, no lower extremity edema and no calf tenderness. NEUROLOGIC EXAMINATION: Patient is awake, alert and oriented x3. ASSESSMENT Acute on chronic systolic heart failure Paroxysmal atrial fibrillation status post cardioversion, maintaining sinus mechanism Sinus bradycardia, asymptomatic Nonobstructive coronary artery disease Ischemic cardiomyopathy Dyslipidemia Hypertension PLAN Increase Aldactone to 25 mg daily. Hold nadolol, this will take approximately 48 hours to clear from his system. Discontinue lisinopril and initiate entresto 24/26 mg twice a day starting tomorrow morning. Increase hydralazine to 3 times a day. Continue Eliquis for thromboembolic protection. Follow renal function and electrolytes in the morning. Troponin elevation not related to an acute event, trending down from previous admission. Further recommendations to follow based upon clinical course. Thank you kindly for this consultation. Nurse Practitioner note has been reviewed, I agree with a documented findings and plan of care. Patient was seen and examined. Past Medical History Past Medical History: Atrial Fibrillation, Hypertension, Neurologic Disorder, Prostate Disorder Additional Past Medical History / Comment(s): BPH, L knee pain, Parkinson's History of Any Multi-Drug Resistant Organisms: None Reported Past Surgical History: Joint Replacement, Tonsillectomy Additional Past Surgical History / Comment(s): Total L knee arthroplasty, colonoscopy 2008, bilateral cataract removal. Past Anesthesia/Blood Transfusion Reactions: No Reported Reaction Additional Past Anesthesia/Blood Transfusion Reaction / Comment(s): Pt states he has never received blood. Smoking Status: Former smoker - Past Family History Father History Unknown: Yes Family Medical History: Unable to Obtain Additional Family Medical History / Comment(s): Pt did not grow up knowing father. Mother Family Medical History: No Reported History Additional Family Medical History / Comment(s): Mother was healthy. She at age 76yrs. Medications and Allergies Home Medications Medication Instructions Recorded Confirmed Type Acetaminophen Tab [Tylenol] 1,000 mg PO Q6H PRN 10/04/13 11/14/20 History Doxazosin Mesylate [Cardura Xl] 4 mg PO DAILY 10/04/13 11/14/20 History Lisinopril-Hctz 20-12.5 mg 0.5 tab PO DAILY 10/04/13 11/14/20 History [Zestoretic 20-12.5] Spironolactone [Aldactone] 12.5 mg PO DAILY 10/04/13 11/14/20 History Carbidopa-Levodopa 25-100 mg 1 tab PO BID 04/26/15 11/14/20 History [Sinemet 25-100 mg] Multivitamins, Thera [Multivitamin 1 tab PO DAILY 04/26/15 11/14/20 History (formulary)] Apixaban [Eliquis] 2.5 mg PO BID tablet 05/01/15 11/14/20 Rx nadoloL [Corgard] 10 mg PO BID 07/06/15 11/14/20 History Atorvastatin [Lipitor] 40 mg PO DAILY 08/01/15 11/14/20 History Carbidopa-Levodopa ER 25-100Mg 1 tab PO BID 10/25/20 11/14/20 History [Sinemet CR 25-100 mg] traZODone HCL 50 mg PO HS PRN 10/25/20 11/14/20 History Aspirin 81 mg PO DAILY chew 10/28/20 11/14/20 Rx Isosorbide Mononitrate ER [Imdur] 30 mg PO DAILY #30 tab.er.24h 10/28/20 11/14/20 Rx Allergies Allergy/AdvReac Type Severity Reaction Status Date / Time No Known Allergies Allergy Verified 11/14/20 12:40 Physical Exam Vitals: Vital Signs Temp Pulse Pulse Pulse Resp BP BP 11/15/20 04:00 98.3 F 68 16 168/77 11/15/20 02:00 63 16 11/15/20 00:00 40 L 16 11/14/20 23:50 97.5 F L 63 16 152/79 11/14/20 22:05 43 L 16 114/76 11/14/20 20:18 42 L 16 142/86 11/14/20 17:58 98.4 F 44 L 16 110/77 11/14/20 16:51 41 L 16 11/14/20 14:57 40 L 16 135/98 11/14/20 14:08 97.6 F 40 L 40 L 16 127/80 11/14/20 13:30 45 L 18 132/89 11/14/20 13:09 42 L 18 136/101 11/14/20 12:40 97.4 F L 51 L 16 96/93 Pulse Ox 11/15/20 04:00 95 11/15/20 02:00 11/15/20 00:00 11/14/20 23:50 99 11/14/20 22:05 100 11/14/20 20:18 100 11/14/20 17:58 100 11/14/20 16:51 98 11/14/20 14:57 100 11/14/20 14:08 100 11/14/20 13:30 99 11/14/20 13:09 100 11/14/20 12:40 98 Intake and Output 11/14/20 11/15/20 11/15/20 22:59 06:59 14:59 Intake Total 52.667 68.211 Balance 52.667 68.211 Intake: Intake, IV Titration 52.667 68.211 Amount Heparin Sod,Pork in 0.45% 52.667 68.211 NaCl 25,000 unit In 0.45 % NaCl 1 250ml.bag @ 11. 543 UNITS/KG/HR 10 mls/hr IV .Q24H [facility] Rx#: [id number] Other: Voiding Method Toilet Urinal # Voids 1 Weight 87.1 kg Results 11/15/20 04:32 11/15/20 04:32 Cardiac Enzymes 11/14/20 11/14/20 11/14/20 Range/Units 13:04 13:04 17:36 AST 32 (17-59) U/L Troponin I 0.061 H* 0.065 H* (0.000-0.034) ng/mL 11/14/20 Range/Units 21:21 AST (17-59) U/L Troponin I 0.066 H* (0.000-0.034) ng/mL Coagulation 11/14/20 11/14/20 11/15/20 Range/Units 13:04 21:21 04:32 PT 10.6 10.6 (9.0-12.0) sec APTT 23.3 69.8 H 49.4 H (22.0-30.0) sec CBC 11/14/20 11/15/20 Range/Units 13:04 04:32 WBC 6.9 6.4 (3.8-10.6) k/uL RBC 4.15 L 4.01 L (4.30-5.90) m/uL Hgb 13.5 12.9 L (13.0-17.5) gm/dL Hct 39.4 38.5 L (39.0-53.0) % Plt Count 149 L 138 L (150-450) k/uL Comprehensive Metabolic Panel 11/14/20 11/15/20 Range/Units 13:04 04:32 Sodium 139 141 (137-145) mmol/L Potassium 4.8 4.4 (3.5-5.1) mmol/L Chloride 104 104 (98-107) mmol/L Carbon Dioxide 31 H 31 H (22-30) mmol/L BUN 44 H 44 H (9-20) mg/dL Creatinine 1.23 1.13 (0.66-1.25) mg/dL Glucose 105 H 112 H (74-99) mg/dL Calcium 9.9 9.5 (8.4-10.2) mg/dL AST 32 (17-59) U/L ALT <6 (4-49) U/L Alkaline Phosphatase 57 (38-126) U/L Total Protein 6.2 L (6.3-8.2) g/dL Albumin 3.8 (3.5-5.0) g/dL Current Medications Generic Name Dose Route Start Last Admin Trade Name Freq PRN Reason Stop Dose Admin Acetaminophen 1,000 mg 11/14/20 16:10 Acetaminophen Tab 500 Mg Tab PO Q6H PRN Pain Apixaban 2.5 mg 11/15/20 09:00 11/15/20 09:18 Apixaban 2.5 Mg Tablet PO 2.5 mg BID BAKARI Administration Protocol Aspirin 81 mg 11/15/20 09:00 11/15/20 09:18 Aspirin 81 Mg PO 81 mg DAILY BAKARI Administration Atorvastatin Calcium 40 mg 11/15/20 09:00 11/15/20 09:19 Atorvastatin 40 Mg Tab PO 40 mg DAILY BAKARI Administration Carbidopa/Levodopa 1 each 11/14/20 21:00 11/15/20 09:19 Carbidopa-Levodopa 25-100 Mg 1 Each Tab PO 1 each BID BAKRAI Administration Carbidopa/Levodopa 1 each 11/14/20 21:00 11/15/20 09:18 Carbidopa-Levodopa Er 25-100mg 1 Each Tablet.Er PO 1 each BID BAKARI Administration Doxazosin Mesylate 2 mg 11/15/20 09:00 11/15/20 09:18 Doxazosin 2 Mg Tab PO 2 mg BID BAKARI Administration Furosemide 40 mg 11/15/20 09:00 11/15/20 09:19 Furosemide 40 Mg Tab PO 40 mg DAILY BAKARI Administration Hydralazine HCl 25 mg 11/15/20 09:15 Hydralazine Hcl 25 Mg Tab PO TID BAKARI Isosorbide Mononitrate 30 mg 11/15/20 09:00 11/15/20 09:19 Isosorbide Mononitrate Er 30 Mg Tab.Er.24h PO 30 mg DAILY BAKARI Administration Multivitamins 1 each 11/15/20 09:00 11/15/20 09:18 Multivitamins, Thera 1 Each Tab PO 1 each DAILY BAKARI Administration Naloxone HCl 0.2 mg 11/14/20 16:08 Naloxone 0.4 Mg/Ml 1 Ml Vial IV Q2M PRN Opioid Reversal Sacubitril/Valsartan 1 each 11/16/20 09:00 Sacubitril/Valsartan 24 Mg-26 Mg Tablet PO BID BAKARI Spironolactone 25 mg 11/15/20 09:00 11/15/20 09:18 Spironolactone 25 Mg Tab PO 25 mg DAILY BAKARI Administration Trazodone HCl 50 mg 11/14/20 16:10 11/14/20 20:20 Trazodone Hcl 50 Mg Tab PO 50 mg HS PRN Administration Insomnia Intake and Output 11/14/20 11/15/20 11/15/20 22:59 06:59 14:59 Intake Total 52.667 68.211 Balance 52.667 68.211 Intake: Intake, IV Titration 52.667 68.211 Amount Heparin Sod,Pork in 0.45% 52.667 68.211 NaCl 25,000 unit In 0.45 % NaCl 1 250ml.bag @ 11. 543 UNITS/KG/HR 10 mls/hr IV .Q24H [facility] Rx#: [id number] Other: Voiding Method Toilet Urinal # Voids 1 Weight 87.1 kg 11/15/20 04:32 11/15/20 04:32
[2020-11-15] MEDS: hydrALAZINE HCL 25 MG TAB PO SCH ×3 (12:17→20:33)
[2020-11-15] MEDS: traZODone HCL 50 MG TAB PO PRN (23:14)
[2020-11-16 07:42] LABS: Basophils % (A) 0 %; Eosinophils # (A) 0.1 k/uL (0-0.7); Eosinophils % (A) 2 %; HCT 37.9 % (39.0-53.0); HGB 12.8 gm/dL (13.0-17.5); Lymphocytes # (A) 0.7 k/uL (1.0-4.8); Lymphocytes % (A) 10 %; MCH 32.3 pg (25.0-35.0); MCHC 33.8 g/dL (31.0-37.0); MCV 95.4 fL (80.0-100.0); Mean Platelet Volume 8.2; Monocytes # (A) 0.4 k/uL (0-1.0); Monocytes % (A) 6 %; Neutrophils # (A) 5.4 k/uL (1.3-7.7); Neutrophils % (A) 80 %; Platelet Count 124 k/uL (150-450); RBC 3.98 m/uL (4.30-5.90); RDW 13.5 % (11.5-15.5); WBC 6.8 k/uL (3.8-10.6)
[2020-11-16] MEDS: FUROSEMIDE 40 MG TAB PO SCH (07:53)
[2020-11-16] MEDS: CARBIDOPA-LEVODOPA 25-100 MG 1 EACH TAB PO SCH ×2 (07:53→19:51)
[2020-11-16] MEDS: APIXABAN 2.5 MG TABLET PO SCH ×2 (07:53→19:50)
[2020-11-16] MEDS: ATORVASTATIN 40 MG TAB PO SCH (07:53)
[2020-11-16] MEDS: SACUBITRIL/VALSARTAN 24 MG-26 MG TABLET PO SCH ×2 (07:53→20:14)
[2020-11-16] MEDS: MULTIVITAMINS, THERA 1 EACH TAB PO SCH (07:53)
[2020-11-16] MEDS: ISOSORBIDE MONONITRATE ER 30 MG TAB.ER.24H PO SCH (07:53)
[2020-11-16] MEDS: hydrALAZINE HCL 25 MG TAB PO SCH ×3 (07:53→19:50)
[2020-11-16] MEDS: ASPIRIN 81 MG PO SCH (07:53)
[2020-11-16] MEDS: DOXAZOSIN 2 MG TAB PO SCH ×2 (07:53→20:14)
[2020-11-16] MEDS: CARBIDOPA-LEVODOPA ER 25-100MG 1 EACH TABLET.ER PO SCH ×2 (07:54→20:14)
[2020-11-16] MEDS: SPIRONOLACTONE 25 MG TAB PO SCH (07:54)
[2020-11-16 07:55] LABS: Calcium 9.6 mg/dL (8.4-10.2); Potassium 4.4 mmol/L (3.5-5.1)
[2020-11-16] MEDS: ACETAMINOPHEN TAB 500 MG TAB PO PRN (10:19)
--- NOTE | 2020-11-16 12:13 | P.PN ---
Subjective HISTORY OF PRESENTING ILLNESS This is a pleasant 85-year-old male past medical history significant for coronary artery disease, hypertension, thoracic aortic aneurysm, dyslipidemia and paroxysmal atrial fibrillation status post cardioversion 2015. He follows in the office with Dr. Alarcon. We have been asked to see in consultation for bradycardia and elevated troponins. He was just discharged from the hospital for NSTEMI 10/28/2020. The patient, his family and Dr. Alarcon decided together at that time that medical therapy was the best approach. He returned to the hospital with symptoms of shortness of breath and chest tightness. Chest x-ray reveals early congestive heart failure. EKG reveals sinus bradycardia with left anterior fasicular block with heart rate of 44. Telemetry tracings reveal persistent sinus bradycardia with rates in the mid 40s with no significant pauses. Laboratory data reviewed, WBC 6.4, hemoglobin 12.9, platelets 138, sodium 141, potassium 4.4, creatinine 1.13, magnesium 2.2, troponin 0.061, 0.0 65, 0.0 66, TSH 0.422 and free T4 1.57. Current daily cardiac medications include aspirin 81 mg daily, eliquis 2.5 mg BID, atorvastatin 40 mg daily, imdur 30 mg daily, lisinopril/hctz 20/12.5mg 1/2 tab daily, aldactone 12.5 mg dialy and nadolol 10 mg BID. He was last cathed in 2016 revealing a calcified left coronary system with mild-moderate disease of thet LAD and circumflex. Most recent echocardiom performed earlier this month revealed impaired LV systolic function with EF 40-45%, basal inferior, basal inferior septal, mid inferior, mid inferior septal wall motion hypokinesia, mild MR and mild TR. 11/16/2020 Pt seen and evaluated laying flat resting comfortably in bed in no acute distress. He denies chest pain, shortness of breath, dizziness or palpitations. Blood pressure 100/64 heart rate 87 afebrile and maintaining oxygen saturation on room air. Laboratory data reviewed, WBC 6.8, hemoglobin 12.8, platelets 124, sodium 140, potassium 4.4 and creatinine 1.08. Dark red blood noted in his Wallace catheter drainage bag. PHYSICAL EXAMINATION CONSTITUTIONAL: No apparent distress. HEENT: Head is normocephalic. Pupils are equal, round. Sclerae anicteric. Mucous membranes of the mouth are moist. No JVD. No carotid bruit. CHEST EXAMINATION: Bibsailar rales, no wheezes or rhonchi. No chest wall tenderness is noted on palpation or with deep breathing. HEART EXAMINATION: Regular rate and rhythm. S1, S2 heard. Systolic ejection murmur at the left sternal border, no gallops or rub. EXTREMITIES: 2+ peripheral pulses, no lower extremity edema and no calf tenderness. ASSESSMENT Acute on chronic systolic heart failure Paroxysmal atrial fibrillation status post cardioversion, maintaining sinus mechanism Sinus bradycardia, asymptomatic Nonobstructive coronary artery disease Ischemic cardiomyopathy Dyslipidemia Hypertension PLAN Heart rates have improved with discontinuation of nadolol. Entresto initiated this morning. His heart rates remained stable we may add a small dose of Coreg. Continue Eliquis for thromboembolic protection. Follow renal function and electrolytes in the morning. Follow hemoglobin and the morning. Nurse Practitioner note has been reviewed, I agree with a documented findings and plan of care. Patient was seen and examined. Objective - Vital Signs Vital signs: Vital Signs Temp 97.6 F 11/16/20 11:39 Pulse 87 11/16/20 11:39 Resp 18 11/16/20 11:39 BP 100/64 11/16/20 11:39 Pulse Ox 95 11/16/20 11:39 Intake & Output 11/15/20 11/16/20 11/16/20 18:59 06:59 18:59 Intake Total 240 240 Output Total 350 1400 Balance -110 -1400 240 Weight 85.2 kg Intake: Oral 240 240 Output: Urine 350 1400 Other: Voiding Method Indwelling Catheter Indwelling Catheter Indwelling Catheter # Voids 1 - Labs CBC & Chem 7: 11/16/20 07:20 11/16/20 07:20 Labs: Abnormal Lab Results - Last 24 Hours (Table) 11/16/20 11/16/20 Range/Units 07:20 07:20 RBC 3.98 L (4.30-5.90) m/uL Hgb 12.8 L (13.0-17.5) gm/dL Hct 37.9 L (39.0-53.0) % Plt Count 124 L (150-450) k/uL Lymphocytes # 0.7 L (1.0-4.8) k/uL Carbon Dioxide 32 H (22-30) mmol/L BUN 41 H (9-20) mg/dL Glucose 101 H (74-99) mg/dL
[2020-11-16] MEDS: HYDROcodone/APAP 5-325MG 1 EACH TAB PO PRN (13:28)
--- NOTE | 2020-11-16 16:40 | P.PN ---
<Noam Gamble - Last Filed: 11/16/20 16:22> Subjective Progress Note Date: 11/16/20 Hospital course: Patient is a 85-year-old male with a past medical history of atrial fibrillation on a look with, ischemic cardiomyopathy, chronic systolic heart failure with an ejection fraction of 45-50%, coronary artery disease, hypertension, hyperlipidemia, CK D stage III, BPH, and Parkinson's disease. Patient presented to our facility on 11/14/20 with a chief complaint of chest pain and dyspnea. Patient was found to be in A. fib with a slow ventricular response with heart rate in the 30s requiring administration of atropine. Patient was admitted under our services for acute on chronic systolic heart failure along with atrial fibrillation with a slow ventricular response with consultation to cardiology. Chest x-ray showing findings consistent with early congestive heart failure with patchy left basilar airspace opacities. Patient has had many medication changes since admission including discontinuation of Nadolol and lisinopril and being started on Entresto and increased doses of daily Aldactone and hydralazine. Patient's slowed ventricular response has improved since medication changes have been made. He is no longer requiring oxygen supplementation. If patient's c ondition remains stable plan for discharge home with [facility] tomorrow morning. Physical exam: Patient seen and fully evaluated at the bedside. He denies having any complaints or needs at this time. Patient denied having any headache, lightheadedness, dizziness, chest pain, palpitations, shortness of breath, or any other complaints at this time. General: non toxic, no distress, appears at stated age Derm: warm, dry Head: atraumatic, normocephalic, symmetric Eyes: EOMI, no lid lag, anicteric sclera Mouth: no lip lesion, mucus membranes moist Cardiovascular: S1S2 reg, no murmur, positive posterior tibial pulse bilateral, Lungs: CTA bilateral, no rhonchi, no rales , no accessory muscle use Abdominal: soft, nontender to palpation, no guarding, no appreciable organomegaly Ext: no gross muscle atrophy, no edema, no contractures Neuro: CN II-XI grossly intact, no focal neuro deficits Psych: Alert, oriented, appropriate affect Plan of care: Acute on chronic systolic heart failure with preserved ejection fraction of 45- 50% -Continue hydralazine and Aldactone -Daily weights -Telemetry monitoring -Cardiac diet -Cardiology following Bradycardia, improved -Nadolol was discontinued. Elevated troponins, acute coronary event ruled out troponin elevation likely secondary to CHF exacerbation and bradycardia -Cardiology following and has ruled out acute coronary event. Hypertension -Monitor vital signs and continue daily medication management. Hyperlipidemia -Continue daily medication management with atorvastatin 40 mg nightly. -Cardiac diet. Parkinson's disease -Safe and symptomatic care. Patient to be provided with assistance as needed. -Continue daily medication management with carbidopa levodopa. CKD stage III, stable CODE STATUS: Full code DVT prophylaxis: Eliquis Discussed with: Patient and RN and patient's son at bedside Anticipated discharge date: Plan for discharge tomorrow morning Anticipated discharge place: Home with [facility] A total of 45 minutes was spent on the care of this complex patient more than 50% of the time was spent in counseling and care coordination. Objective - Vital Signs Vital signs: Vital Signs Temp 98.1 F 11/16/20 07:51 Pulse 69 11/16/20 07:51 Resp 16 11/16/20 07:51 BP 155/88 11/16/20 07:51 Pulse Ox 98 11/16/20 07:51 Intake & Output 11/15/20 11/16/20 11/16/20 18:59 06:59 18:59 Intake Total 240 240 Output Total 350 1400 Balance -110 -1400 240 Weight 85.2 kg Intake: Oral 240 240 Output: Urine 350 1400 Other: Voiding Method Indwelling Catheter Indwelling Catheter Indwelling Catheter # Voids 1 - Labs CBC & Chem 7: 11/16/20 07:20 11/16/20 07:20 Labs: Abnormal Lab Results - Last 24 Hours (Table) 11/16/20 11/16/20 Range/Units 07:20 07:20 RBC 3.98 L (4.30-5.90) m/uL Hgb 12.8 L (13.0-17.5) gm/dL Hct 37.9 L (39.0-53.0) % Plt Count 124 L (150-450) k/uL Lymphocytes # 0.7 L (1.0-4.8) k/uL Carbon Dioxide 32 H (22-30) mmol/L BUN 41 H (9-20) mg/dL Glucose 101 H (74-99) mg/dL <Madeleine Gorman - Last Filed: 11/16/20 19:46> Objective - Vital Signs Vital signs: Vital Signs Temp 97.8 F 11/16/20 16:00 Pulse 57 L 11/16/20 16:00 Resp 18 11/16/20 16:00 BP 131/81 11/16/20 16:00 Pulse Ox 95 11/16/20 16:00 Intake & Output 11/16/20 11/16/20 11/17/20 06:59 18:59 06:59 Intake Total 480 Output Total 1400 850 Balance -1400 -370 Weight 85.2 kg Intake: Oral 480 Output: Urine 1400 850 Other: Voiding Method Indwelling Catheter Indwelling Catheter - Labs CBC & Chem 7: 11/16/20 07:20 11/16/20 07:20 Labs: Abnormal Lab Results - Last 24 Hours (Table) 11/16/20 11/16/20 Range/Units 07:20 07:20 RBC 3.98 L (4.30-5.90) m/uL Hgb 12.8 L (13.0-17.5) gm/dL Hct 37.9 L (39.0-53.0) % Plt Count 124 L (150-450) k/uL Lymphocytes # 0.7 L (1.0-4.8) k/uL Carbon Dioxide 32 H (22-30) mmol/L BUN 41 H (9-20) mg/dL Glucose 101 H (74-99) mg/dL Assessment and Plan Assessment: Noam Gamble NP rendered care for this patient independently, reviewed the findings and plan as documented in the note above. I did not physically speak with or examine the patient on this date.
[2020-11-16] MEDS: traZODone HCL 50 MG TAB PO PRN (23:01)
[2020-11-17] MEDS: HYDROcodone/APAP 5-325MG 1 EACH TAB PO PRN ×2 (02:27→07:58)
[2020-11-17 07:41] LABS: HCT 38.7 % (39.0-53.0); HGB 13.3 gm/dL (13.0-17.5); MCH 32.5 pg (25.0-35.0); MCHC 34.3 g/dL (31.0-37.0); MCV 94.8 fL (80.0-100.0); Mean Platelet Volume 7.8; Platelet Count 119 k/uL (150-450); RBC 4.08 m/uL (4.30-5.90); RDW 13.5 % (11.5-15.5); WBC 6.5 k/uL (3.8-10.6)
[2020-11-17 07:50] LABS: Calcium 9.3 mg/dL (8.4-10.2); Potassium 3.8 mmol/L (3.5-5.1)
[2020-11-17] MEDS: ATORVASTATIN 40 MG TAB PO SCH (07:56)
[2020-11-17] MEDS: CARBIDOPA-LEVODOPA 25-100 MG 1 EACH TAB PO SCH ×2 (07:56→20:18)
[2020-11-17] MEDS: APIXABAN 2.5 MG TABLET PO SCH ×2 (07:56→20:18)
[2020-11-17] MEDS: SPIRONOLACTONE 25 MG TAB PO SCH (07:56)
[2020-11-17] MEDS: MULTIVITAMINS, THERA 1 EACH TAB PO SCH (07:56)
[2020-11-17] MEDS: ASPIRIN 81 MG PO SCH (07:56)
[2020-11-17] MEDS: FUROSEMIDE 40 MG TAB PO SCH (07:57)
[2020-11-17] MEDS: CARBIDOPA-LEVODOPA ER 25-100MG 1 EACH TABLET.ER PO SCH ×2 (07:57→20:18)
[2020-11-17] MEDS: SACUBITRIL/VALSARTAN 24 MG-26 MG TABLET PO SCH ×2 (07:58→20:18)
[2020-11-17] MEDS: hydrALAZINE HCL 25 MG TAB PO SCH (07:58)
[2020-11-17] MEDS: ISOSORBIDE MONONITRATE ER 30 MG TAB.ER.24H PO SCH (07:58)
[2020-11-17] MEDS: DOXAZOSIN 2 MG TAB PO SCH ×2 (07:58→20:18)
--- NOTE | 2020-11-17 10:50 | P.DS ---
<Noam Gamble - Last Filed: 11/17/20 14:51> Providers Expected date of discharge: 11/17/20 Hospital Course: PRIOR TO DISCHARGE, PT HAD EPISODE OF SYMPTOMATIC HYPOTENSION, DISCHARGE CANCELLED AT THIS TIME. PLEASE REFER TO /THIS NOTE MY PROGRESS NOTE FOR 11/17/20. Hospital Course: Patient is a 85-year-old male with a past medical history of atrial fibrillation on a look with, ischemic cardiomyopathy, chronic systolic heart failure with an ejection fraction of 45-50%, coronary artery disease, hypertension, hyperlipidemia, CK D stage III, BPH, and Parkinson's disease. Patient presented to our facility on 11/14/20 with a chief complaint of chest pain and dyspnea. Patient was found to be in A. fib with a slow ventricular response with heart rate in the 30s requiring administration of atropine. Patient was admitted under our services for acute on chronic systolic heart failure along with atrial fibrillation with a slow ventricular response with consultation to cardiology. Chest x-ray showing findings consistent with early congestive heart failure with patchy left basilar airspace opacities. Patient was treated with diuresis and had many medication changes during this admission including discontinuation of Nadolol and lisinopril and being started on Entresto and Coreg. Patient's bradycardia improved since medication changes were made. He was no longer requiring oxygen supplementation. Initial plans for discharge home with [facility] are, however after discharge orders placed pt had episode of symptomatic hypotension with blood pressure of 74/50 and repeat pressure of 71/46. Patient was given 1 L bolus and repeat pressure 84/50. Cardiology notified and to make changes to patient's medication regimen. Patient's discharge canceled at this time as he is requiring continuing overnight monitoring. Physical exam: Patient seen and fully evaluated at the bedside this morning. He reported having chronic arthritic pain to right knee and denied having any further complaints or needs at that time. Patient denied having any headache, lightheadedness, dizziness, chest pain, palpitations, shortness of breath, or any other complaints at this time. Orders were placed for discharge, pt then had episode of symptomatic hypotension upon standing. General: non toxic, no distress, appears at stated age Derm: warm, dry Head: atraumatic, normocephalic, symmetric Eyes: EOMI, no lid lag, anicteric sclera Mouth: no lip lesion, mucus membranes moist Cardiovascular: S1S2 reg, no murmur, positive posterior tibial pulse bilateral, Lungs: CTA bilateral, no rhonchi, no rales , no accessory muscle use Abdominal: soft, nontender to palpation, no guarding, no appreciable organomegaly Ext: no gross muscle atrophy, no edema, no contractures Neuro: CN II-XI grossly intact, no focal neuro deficits Psych: Alert, oriented, appropriate affect Plan of Care: Symptomatic hypotension -1 L boluses followed by close monitoring of vital signs. -Cardiology notified, plans to make medication changes -Telemetry monitoring Acute on chronic systolic heart failure with preserved ejection fraction of 45- 50% -Continue hydralazine and Aldactone -Daily weights -Telemetry monitoring -Cardiac diet -Cardiology following Bradycardia, improved -Nadolol was discontinued. Elevated troponins, acute coronary event ruled out troponin elevation likely secondary to CHF exacerbation and bradycardia -Cardiology following and has ruled out acute coronary event. Hypertension -Monitor vital signs and continue daily medication management. Hyperlipidemia -Continue daily medication management with atorvastatin 40 mg nightly. -Cardiac diet. Parkinson's disease -Safe and symptomatic care. Patient to be provided with assistance as needed. -Continue daily medication management with carbidopa levodopa. CKD stage III, stable Hematuria, resolved CODE STATUS: Full code DVT prophylaxis: Trinity Discussed with: Patient and RN and patient's son at bedside Anticipated discharge date: Plan for discharge tomorrow morning Anticipated discharge place: Home with [facility] A total of 45 minutes was spent on the care of this complex patient more than 50% of the time was spent in counseling and care coordination. Assessment: I agree withe the documentation as compiled by Noam Gamble Patient Condition at Discharge: Stable Plan - Discharge Summary Discharge Rx Participant: No New Discharge Prescriptions: New Sacubitril/Valsartan [Entresto 24 mg-26 mg Tablet] 1 each PO BID #60 tablet Spironolactone [Aldactone] 25 mg PO DAILY 30 Days #30 tab carvediloL [Coreg] 1.563 mg PO BID-W/MEALS 30 Days #60 dose Furosemide [Lasix] 40 mg PO DAILY 30 Days #30 tab Continue Acetaminophen Tab [Tylenol] 1,000 mg PO Q6H PRN PRN Reason: Pain Doxazosin Mesylate [Cardura Xl] 4 mg PO DAILY Carbidopa-Levodopa 25-100 mg [Sinemet 25-100 mg] 1 tab PO BID Multivitamins, Thera [Multivitamin (formulary)] 1 tab PO DAILY Apixaban [Eliquis] 2.5 mg PO BID tablet Atorvastatin [Lipitor] 40 mg PO DAILY Carbidopa-Levodopa ER 25-100Mg [Sinemet CR 25-100 mg] 1 tab PO BID traZODone HCL 50 mg PO HS PRN PRN Reason: Insomnia Aspirin 81 mg PO DAILY chew Isosorbide Mononitrate ER [Imdur] 30 mg PO DAILY #30 tab.er.24h Discontinued Spironolactone [Aldactone] 12.5 mg PO DAILY Lisinopril-Hctz 20-12.5 mg [Zestoretic 20-12.5] 0.5 tab PO DAILY nadoloL [Corgard] 10 mg PO BID Discharge Medication List Acetaminophen Tab [Tylenol] 1,000 mg PO Q6H PRN 10/04/13 [History] Doxazosin Mesylate [Cardura Xl] 4 mg PO DAILY 10/04/13 [History] Carbidopa-Levodopa 25-100 mg [Sinemet 25-100 mg] 1 tab PO BID 04/26/15 [History] Multivitamins, Thera [Multivitamin (formulary)] 1 tab PO DAILY 04/26/15 [History] Apixaban [Eliquis] 2.5 mg PO BID tablet 05/01/15 [Rx] Atorvastatin [Lipitor] 40 mg PO DAILY 08/01/15 [History] Carbidopa-Levodopa ER 25-100Mg [Sinemet CR 25-100 mg] 1 tab PO BID 10/25/20 [History] traZODone HCL 50 mg PO HS PRN 10/25/20 [History] Aspirin 81 mg PO DAILY chew 10/28/20 [Rx] Isosorbide Mononitrate ER [Imdur] 30 mg PO DAILY #30 tab.er.24h 10/28/20 [Rx] Furosemide [Lasix] 40 mg PO DAILY 30 Days #30 tab 11/17/20 [Rx] Sacubitril/Valsartan [Entresto 24 mg-26 mg Tablet] 1 each PO BID #60 tablet 11/17/20 [Rx] Spironolactone [Aldactone] 25 mg PO DAILY 30 Days #30 tab 11/17/20 [Rx] carvediloL [Coreg] 1.563 mg PO BID-W/MEALS 30 Days #60 dose 11/17/20 [Rx] Follow up Appointment(s)/Referral(s): Cira Ross MD [Primary Care Provider] - 11/29/20 3:15 pm Cira Alarcon MD [STAFF PHYSICIAN] - 12/01/20 10:00 am [facility], [NON-STAFF] - Ryan Rodriguez MD [STAFF PHYSICIAN] - 12/08/20 7:20 am Ambulatory/Diagnostic Orders: Basic Metabolic Panel [LAB.AMB] Time Frame: 3 Days, Location: None Selected Activity/Diet/Wound Care/Special Instructions: Activity: As tolerated. Take breaks as needed. Diet: Heart healthy diet. Avoid salt, or foods with hidden salts. Extra salt makes your heart work harder and traps the fluid in your body for longer. Special Instructions: Weigh yourself every morning after you urinate. If you gain 3 pounds overnight or more than 5 pounds in one week, call your primary physician for guidance on your medications. Keep a log of your weights. Take all of your medications as directed, especially your water pills. NEVER skip a dose. And remember to keep all of your doctor's appointments and follow- up as needed. Elevate your legs when you are not up moving around to help with circulation and prevent swelling. Call your physician if you notice any extra swelling in your legs, ankles, feet or abdomen, if you have a new dry cough, if your shortness of breath worsens with activity or at rest, or if you feel more fatigued. You are being discharged home with [facility]. Thank you for allowing us to participate in your care, it was a pleasure having you for our patient!! Discharge Disposition: HOME WITH HOME HEALTH SERVICES <Jerrod Morales - Last Filed: 11/18/20 09:18> Providers Date of admission: 11/14/20 15:26 Attending physician: Jerrod Morales MD Consults: 11/14/20 15:26 Consult Physician Stat Consulting Provider: Shahriar William Consult Reason/Comments: NSTEMI, bradycardia Do you want consulting provider notified?: Already Contacted 11/16/20 05:49 Consult Physician Routine Consulting Provider: Ryan Rodriguez Consult Reason/Comments: hematuria Do you want consulting provider notified?: Yes 11/16/20 06:18 Consult Physician Urgent Consulting Provider: Ryan Rodriguez Consult Reason/Comments: hematuria Do you want consulting provider notified?: Yes Primary care physician: Cira Ross MD
--- NOTE | 2020-11-17 12:16 | P.GSCN ---
History of Present Illness Consult date: 11/17/20 Reason for Consult: Hematuria Requesting physician: Ananya Spencer History of present illness: The patient is an 85-year-old white male who recently sustained a myocardial infarction. He was readmitted on November 14 with dyspnea on exertion. He experienced difficulty voiding, and a Wallace catheter was placed. Hematuria was noted, and I'm consulted for this reason. The patient denies any hematuria prior to catheter placement. I have followed Mr. Ramos in the past for an elevated PSA level which was presumed to be due to BPH. He currently takes doxazosin 4 mg daily. Review of Systems - Cardiovascular Reports dyspnea on exertion - Genitourinary Reports hematuria, Denies dysuria Past Medical History Past Medical History: Atrial Fibrillation, Hypertension, Neurologic Disorder, Prostate Disorder Additional Past Medical History / Comment(s): BPH, L knee pain, Parkinson's History of Any Multi-Drug Resistant Organisms: None Reported Past Surgical History: Joint Replacement, Tonsillectomy Additional Past Surgical History / Comment(s): Total L knee arthroplasty, colonoscopy 2008, bilateral cataract removal. Past Anesthesia/Blood Transfusion Reactions: No Reported Reaction Additional Past Anesthesia/Blood Transfusion Reaction / Comm: Pt states he has never received blood. Smoking Status: Former smoker - Past Family History Father History Unknown: Yes Family Medical History: Unable to Obtain Additional Family Medical History / Comment(s): Pt did not grow up knowing father. Mother Family Medical History: No Reported History Additional Family Medical History / Comment(s): Mother was healthy. She at age 76yrs. Medications and Allergies Home Medications Medication Instructions Recorded Confirmed Type Acetaminophen Tab [Tylenol] 1,000 mg PO Q6H PRN 10/04/13 11/14/20 History Doxazosin Mesylate [Cardura Xl] 4 mg PO DAILY 10/04/13 11/14/20 History Carbidopa-Levodopa 25-100 mg 1 tab PO BID 04/26/15 11/14/20 History [Sinemet 25-100 mg] Multivitamins, Thera [Multivitamin 1 tab PO DAILY 04/26/15 11/14/20 History (formulary)] Apixaban [Eliquis] 2.5 mg PO BID tablet 05/01/15 11/14/20 Rx Atorvastatin [Lipitor] 40 mg PO DAILY 08/01/15 11/14/20 History Carbidopa-Levodopa ER 25-100Mg 1 tab PO BID 10/25/20 11/14/20 History [Sinemet CR 25-100 mg] traZODone HCL 50 mg PO HS PRN 10/25/20 11/14/20 History Aspirin 81 mg PO DAILY chew 10/28/20 11/14/20 Rx Isosorbide Mononitrate ER [Imdur] 30 mg PO DAILY #30 tab.er.24h 10/28/20 11/14/20 Rx Furosemide [Lasix] 40 mg PO DAILY 30 Days #30 tab 11/17/20 Rx Sacubitril/Valsartan [Entresto 24 1 each PO BID #60 tablet 11/17/20 Rx mg-26 mg Tablet] Spironolactone [Aldactone] 25 mg PO DAILY 30 Days #30 tab 11/17/20 Rx carvediloL [Coreg] 1.563 mg PO BID-W/MEALS 30 Days 11/17/20 Rx #60 dose Allergies Allergy/AdvReac Type Severity Reaction Status Date / Time No Known Allergies Allergy Verified 11/14/20 12:40 Surgical - Exam Vital Signs Temp Pulse Resp BP Pulse Ox 97.4 F L 51 L 16 96/93 98 11/14/20 12:40 11/14/20 12:40 11/14/20 12:40 11/14/20 12:40 11/14/20 12:40 - General well developed, well nourished, no distress - Respiratory normal respiratory effort - Abdomen Abdomen: soft, non tender, no guarding, no rigid, no rebound - Genitourinary Normal phallus, normal urethral meatus. Bilateral large hydroceles are noted. - Rectum Rectum: normal sphincter tone, no masses, other (Prostate moderately enlarged but smooth) - Psychiatric oriented to time, oriented to person, oriented to place, speech is normal, memory intact Results - Labs 11/17/20 06:54 11/17/20 06:54 Abnormal Lab Results - Last 24 Hours (Table) 11/17/20 11/17/20 Range/Units 06:54 06:54 RBC 4.08 L (4.30-5.90) m/uL Hct 38.7 L (39.0-53.0) % Plt Count 119 L (150-450) k/uL BUN 37 H (9-20) mg/dL Glucose 124 H (74-99) mg/dL Diabetes panel 11/17/20 Range/Units 06:54 Sodium 138 (137-145) mmol/L Potassium 3.8 (3.5-5.1) mmol/L Chloride 102 (98-107) mmol/L Carbon Dioxide 30 (22-30) mmol/L BUN 37 H (9-20) mg/dL Creatinine 0.99 (0.66-1.25) mg/dL Glucose 124 H (74-99) mg/dL Calcium 9.3 (8.4-10.2) mg/dL Calcium panel 11/17/20 Range/Units 06:54 Calcium 9.3 (8.4-10.2) mg/dL Pituitary panel 11/17/20 Range/Units 06:54 Sodium 138 (137-145) mmol/L Potassium 3.8 (3.5-5.1) mmol/L Chloride 102 (98-107) mmol/L Carbon Dioxide 30 (22-30) mmol/L BUN 37 H (9-20) mg/dL Creatinine 0.99 (0.66-1.25) mg/dL Glucose 124 H (74-99) mg/dL Calcium 9.3 (8.4-10.2) mg/dL Adrenal panel 11/17/20 Range/Units 06:54 Sodium 138 (137-145) mmol/L Potassium 3.8 (3.5-5.1) mmol/L Chloride 102 (98-107) mmol/L Carbon Dioxide 30 (22-30) mmol/L BUN 37 H (9-20) mg/dL Creatinine 0.99 (0.66-1.25) mg/dL Glucose 124 H (74-99) mg/dL Calcium 9.3 (8.4-10.2) mg/dL Assessment and Plan (1) Benign prostatic hyperplasia with lower urinary tract symptoms Current Visit: Yes Status: Acute Code(s): N40.1 - BENIGN PROSTATIC HYPERPLASIA WITH LOWER URINARY TRACT SYMP SNOMED Code(s): 894056323 (2) Gross hematuria Current Visit: Yes Status: Acute Code(s): R31.0 - GROSS HEMATURIA SNOMED Code(s): 938929018 Plan: The patient denies any history of hematuria prior to catheter placement, and thus I attribute the hematuria to Wallace catheter trauma. The catheter was removed this morning. Given that he experienced difficulty voiding which prompted placement of the catheter, it is my recommendation the postvoid residuals be checked to assure bladder emptying is adequate. If not, catheter replacement may be required. As of now, I do not feel that a formal hematuria evaluation is warranted. Time with Patient: Greater than 30
--- NOTE | 2020-11-17 12:17 | P.PN ---
Subjective HISTORY OF PRESENTING ILLNESS This is a pleasant 85-year-old male past medical history significant for coronary artery disease, hypertension, thoracic aortic aneurysm, dyslipidemia and paroxysmal atrial fibrillation status post cardioversion 2015. He follows in the office with Dr. Alarcon. We have been asked to see in consultation for bradycardia and elevated troponins. He was just discharged from the hospital for NSTEMI 10/28/2020. The patient, his family and Dr. Alarcon decided together at that time that medical therapy was the best approach. He returned to the hospital with symptoms of shortness of breath and chest tightness. Chest x-ray reveals early congestive heart failure. EKG reveals sinus bradycardia with left anterior fasicular block with heart rate of 44. Telemetry tracings reveal persistent sinus bradycardia with rates in the mid 40s with no significant pauses. Laboratory data reviewed, WBC 6.4, hemoglobin 12.9, platelets 138, sodium 141, potassium 4.4, creatinine 1.13, magnesium 2.2, troponin 0.061, 0.0 65, 0.0 66, TSH 0.422 and free T4 1.57. Current daily cardiac medications include aspirin 81 mg daily, eliquis 2.5 mg BID, atorvastatin 40 mg daily, imdur 30 mg daily, lisinopril/hctz 20/12.5mg 1/2 tab daily, aldactone 12.5 mg dialy and nadolol 10 mg BID. He was last cathed in 2015 revealing a calcified left coronary system with mild-moderate disease of thet LAD and circumflex. Most recent echocardiom performed earlier this month revealed impaired LV systolic function with EF 40-45%, basal inferior, basal inferior septal, mid inferior, mid inferior septal wall motion hypokinesia, mild MR and mild TR. 11/17/2020 Pt seen and evaluated laying flat resting comfortably in bed in no acute distress. Entresto was initiated yesterday. Laboratory data reviewed, WBC 6.5, hemoglobin 13.3, platelets 118, sodium 138, potassium 3.8, creatinine 0.99. Blood pressure 114/62 heart rate 90 afebrile maintaining oxygen saturation on room air. Telemetry tracings reviewed, he had a brief run of afib this morning with heart rates in the 130s. He converted spontaneously back to SR. PHYSICAL EXAMINATION CONSTITUTIONAL: No apparent distress. HEENT: Head is normocephalic. Pupils are equal, round. Sclerae anicteric. Mucous membranes of the mouth are moist. No JVD. No carotid bruit. CHEST EXAMINATION: Clear to auscultation, no rales, wheezes or rhonchi. No chest wall tenderness is noted on palpation or with deep breathing. HEART EXAMINATION: Regular rate and rhythm. S1, S2 heard. Systolic ejection murmur at the left sternal border, no gallops or rub. EXTREMITIES: 2+ peripheral pulses, no lower extremity edema and no calf tenderness. ASSESSMENT Acute on chronic systolic heart failure Paroxysmal atrial fibrillation status post cardioversion, maintaining sinus mechanism Sinus bradycardia, asymptomatic Nonobstructive coronary artery disease Ischemic cardiomyopathy Dyslipidemia Hypertension PLAN Hemoglobin stable. Initiate coreg 1.569 BID. Continue entresto as ordered, we will ask the high risk case manager to check the cost. Check BMP in 3 days. Follow up with Dr. Alarcon in 1-2 weeks. Nurse Practitioner note has been reviewed, I agree with a documented findings and plan of care. Patient was seen and examined. Objective - Vital Signs Vital signs: Vital Signs Temp 97.5 F L 11/17/20 07:45 Pulse 90 11/17/20 08:00 Resp 18 11/17/20 08:00 BP 114/62 11/17/20 07:45 Pulse Ox 94 L 11/17/20 07:45 Intake & Output 11/16/20 11/17/20 11/17/20 18:59 06:59 18:59 Intake Total 480 240 240 Output Total 850 925 Balance -370 -685 240 Weight 83 kg Intake: Oral 480 240 240 Output: Urine 850 925 Other: Voiding Method Indwelling Catheter Indwelling Catheter Indwelling Catheter - Labs CBC & Chem 7: 11/17/20 06:54 11/17/20 06:54 Labs: Abnormal Lab Results - Last 24 Hours (Table) 11/17/20 11/17/20 Range/Units 06:54 06:54 RBC 4.08 L (4.30-5.90) m/uL Hct 38.7 L (39.0-53.0) % Plt Count 119 L (150-450) k/uL BUN 37 H (9-20) mg/dL Glucose 124 H (74-99) mg/dL
[2020-11-17] MEDS ORDERED: SODIUM CHLORIDE 0.9% 500 ML 500 ML IV ONE (12:26)
[2020-11-17] MEDS: ACETAMINOPHEN TAB 500 MG TAB PO PRN (19:47)
[2020-11-18] MEDS: ACETAMINOPHEN TAB 500 MG TAB PO PRN (02:50)
[2020-11-18] MEDS: ASPIRIN 81 MG PO SCH (09:48)
[2020-11-18] MEDS: APIXABAN 2.5 MG TABLET PO SCH (09:48)
[2020-11-18] MEDS: ISOSORBIDE MONONITRATE ER 30 MG TAB.ER.24H PO SCH (09:48)
[2020-11-18] MEDS: MULTIVITAMINS, THERA 1 EACH TAB PO SCH (09:49)
[2020-11-18] MEDS: DOXAZOSIN 2 MG TAB PO SCH (09:49)
[2020-11-18] MEDS: FUROSEMIDE 40 MG TAB PO SCH (09:49)
[2020-11-18] MEDS: SACUBITRIL/VALSARTAN 24 MG-26 MG TABLET PO SCH (09:49)
[2020-11-18] MEDS: ATORVASTATIN 40 MG TAB PO SCH (09:49)
[2020-11-18] MEDS: CARBIDOPA-LEVODOPA ER 25-100MG 1 EACH TABLET.ER PO SCH (09:49)
[2020-11-18] MEDS: SPIRONOLACTONE 25 MG TAB PO SCH (09:53)
[2020-11-18] MEDS: CARBIDOPA-LEVODOPA 25-100 MG 1 EACH TAB PO SCH (09:54)
--- NOTE | 2020-11-18 10:03 | P.PN ---
Subjective HISTORY OF PRESENTING ILLNESS This is a pleasant 85-year-old male past medical history significant for coronary artery disease, hypertension, thoracic aortic aneurysm, dyslipidemia and paroxysmal atrial fibrillation status post cardioversion 2015. He follows in the office with Dr. Alarcon. We have been asked to see in consultation for bradycardia and elevated troponins. He was just discharged from the hospital for NSTEMI 10/28/2020. The patient, his family and Dr. Alarcon decided together at that time that medical therapy was the best approach. He returned to the hospital with symptoms of shortness of breath and chest tightness. Chest x-ray reveals early congestive heart failure. EKG reveals sinus bradycardia with left anterior fasicular block with heart rate of 44. Telemetry tracings reveal persistent sinus bradycardia with rates in the mid 40s with no significant pauses. Laboratory data reviewed, WBC 6.4, hemoglobin 12.9, platelets 138, sodium 141, potassium 4.4, creatinine 1.13, magnesium 2.2, troponin 0.061, 0.0 65, 0.0 66, TSH 0.422 and free T4 1.57. Current daily cardiac medications include aspirin 81 mg daily, eliquis 2.5 mg BID, atorvastatin 40 mg daily, imdur 30 mg daily, lisinopril/hctz 20/12.5mg 1/2 tab daily, aldactone 12.5 mg dialy and nadolol 10 mg BID. He was last cathed in 2016 revealing a calcified left coronary system with mild-moderate disease of thet LAD and circumflex. Most recent echocardiom performed earlier this month revealed impaired LV systolic function with EF 40-45%, basal inferior, basal inferior septal, mid inferior, mid inferior septal wall motion hypokinesia, mild MR and mild TR. 11/18/2020 Pt seen and evaluated laying flat resting comfortably in bed in no acute distress. He denies chest pain, shortness of breath, dizziness of palpitations. He had hypotension yesterday that improved. Hydralazine was d/c'd. Blood pressure currently 124/65. Labs pending. PHYSICAL EXAMINATION CONSTITUTIONAL: No apparent distress. HEENT: Head is normocephalic. Pupils are equal, round. Sclerae anicteric. Mucous membranes of the mouth are moist. No JVD. No carotid bruit. CHEST EXAMINATION: Clear to auscultation, no rales, wheezes or rhonchi. No chest wall tenderness is noted on palpation or with deep breathing. HEART EXAMINATION: Regular rate and rhythm. S1, S2 heard. Systolic ejection murmur at the left sternal border, no gallops or rub. EXTREMITIES: 2+ peripheral pulses, no lower extremity edema and no calf tenderness. ASSESSMENT Acute on chronic systolic heart failure Paroxysmal atrial fibrillation status post cardioversion, maintaining sinus mechanism Sinus bradycardia, asymptomatic Nonobstructive coronary artery disease Ischemic cardiomyopathy Dyslipidemia Hypertension PLAN Increase activity and ambulation. Assess blood pressure thereafter. Stable for discharge if asymptomatic. Check BMP in 3 days. Follow up with Dr. Alarcon in 1-2 weeks. Nurse Practitioner note has been reviewed, I agree with a documented findings and plan of care. Patient was seen and examined. Objective - Vital Signs Vital signs: Vital Signs Temp 97.6 F 11/18/20 03:42 Pulse 60 11/18/20 03:42 Resp 18 11/18/20 03:42 BP 124/81 11/18/20 03:42 Pulse Ox 95 11/18/20 03:42 Intake & Output 11/17/20 11/18/20 11/18/20 18:59 06:59 18:59 Intake Total 960 480 Output Total 250 550 Balance 710 -70 Weight 85.5 kg Intake: Oral 960 480 Output: Urine 250 400 Uretheral (Wallace) 250 Post Void Residual 150 Other: Voiding Method Indwelling Catheter Urinal # Voids 1 - Labs CBC & Chem 7: 11/17/20 06:54 11/17/20 06:54
[2020-11-18 10:10] LABS: Calcium 8.9 mg/dL (8.4-10.2); Potassium 3.8 mmol/L (3.5-5.1)
[2020-11-18 11:29] VITALS: BP 109/65; PULSE 68; RESP 18; TEMP 97.3
--- NOTE | 2020-11-18 11:36 | P.DS ---
<Noam Gamble - Last Filed: 11/18/20 11:18> Providers Expected date of discharge: 11/18/20 Hospital Course: Discharge Diagnosis: Acute on chronic systolic heart failure with preserved ejection fraction of 45- 50% Bradycardia, improved Symptomatic hypotension, resolved Elevated troponins, acute coronary event ruled out troponin elevation likely secondary to CHF exacerbation and bradycardia Hypertension Hyperlipidemia Parkinson's disease CKD stage III, stable Hematuria, resolved Hospital Course: Patient is a 85-year-old male with a past medical history of atrial fibrillation on a look with, ischemic cardiomyopathy, chronic systolic heart failure with an ejection fraction of 45-50%, coronary artery disease, hypertension, hyperlipidemia, CK D stage III, BPH, and Parkinson's disease. Patient presented to our facility on 11/14/20 with a chief complaint of chest pain and dyspnea. Patient was found to be in A. fib with a slow ventricular response with heart rate in the 30s requiring administration of atropine. Patient was admitted under our services for acute on chronic systolic heart failure along with atrial fibrillation with a slow ventricular response with consultation to cardiology. Chest x-ray showing findings consistent with early congestive heart failure with patchy left basilar airspace opacities. Patient was treated with diuresis and had many medication changes during this admission including discontinuation of Nadolol, hydralazine and lisinopril and being started on Entresto and Coreg. Patient's bradycardia improved since medication changes were made. He was no l onger requiring oxygen supplementation. The patient did have an isolated episode of symptomatic hypotension which resolved after receiving fluid bolus. Patient's condition stable at this time and he is stable for discharge home. He was educated to weigh himself every morning and if experiences a significant amount of weight gain as discussed, weakness, or increased shortness of breath to notify his primary care doctor and firestopper technician for possible medication adjustments and/or need for evaluation. Patient was instructed on importance of taking medications exactly as directed without skipping any doses and to keep all of his follow-up doctors appointments with firestopper technician and his primary care provider as scheduled. Patient discharged home with [facility]. Physical exam: Patient seen and fully evaluated at the bedside this morning. He continues to report having chronic arthritic pain to right knee and denied having any further complaints or needs at that time. Patient states that he has not had any further episodes of dizziness or lightheadedness since yesterday morning when he experienced an isolated episode of hypotension. He denies having any headache, lightheadedness, dizziness, chest pain, palpitations, shortness of breath, or any other complaints at this time. Orthostatic vitals were assessed at bedside by RN with reported negative findings. General: non toxic, no distress, appears at stated age Derm: warm, dry Head: atraumatic, normocephalic, symmetric Eyes: EOMI, no lid lag, anicteric sclera Mouth: no lip lesion, mucus membranes moist Cardiovascular: S1S2 reg, no murmur, positive posterior tibial pulse bilateral, Lungs: CTA bilateral, no rhonchi, no rales , no accessory muscle use Abdominal: soft, nontender to palpation, no guarding, no appreciable organomegaly Ext: no gross muscle atrophy, no edema, no contractures Neuro: CN II-XI grossly intact, no focal neuro deficits Psych: Alert, oriented, appropriate affect A total of 45 minutes of time were spent preparing this complex discharge summary. Assessment: Patient seen and examined independently. Patient was also seen by Noam Gamble NP and case was discussed. I am in agreement with discharge diagnosis, hospital course, and physical exam as written above and amended below. Feeling much better than yesterday. No light headedness, no chest pain, no shortness of breath. General: non toxic, no distress, appears at stated age Derm: warm, dry Head: atraumatic, normocephalic, symmetric Eyes: EOMI, no lid lag, anicteric sclera Mouth: no lip lesion, mucus membranes moist Cardiovascular: S1S2 reg, no murmur, positive posterior tibial pulse bilateral, Lungs: Coarse breath sounds bilateral, no rhonchi, no rales , no accessory muscle use Abdominal: soft, nontender to palpation, no guarding, no appreciable organomegaly Ext: no gross muscle atrophy, trace edema, no contractures Neuro: CN II-XI grossly intact, no focal neuro deficits Psych: Alert, oriented, appropriate affect Patient Condition at Discharge: Stable Plan - Discharge Summary Discharge Rx Participant: No New Discharge Prescriptions: New Sacubitril/Valsartan [Entresto 24 mg-26 mg Tablet] 1 each PO BID #60 tablet Spironolactone [Aldactone] 25 mg PO DAILY 30 Days #30 tab carvediloL [Coreg] 1.563 mg PO BID-W/MEALS 30 Days #60 dose Furosemide [Lasix] 40 mg PO DAILY 30 Days #30 tab Continue Acetaminophen Tab [Tylenol] 1,000 mg PO Q6H PRN PRN Reason: Pain Doxazosin Mesylate [Cardura Xl] 4 mg PO DAILY Carbidopa-Levodopa 25-100 mg [Sinemet 25-100 mg] 1 tab PO BID Multivitamins, Thera [Multivitamin (formulary)] 1 tab PO DAILY Apixaban [Eliquis] 2.5 mg PO BID tablet Atorvastatin [Lipitor] 40 mg PO DAILY Carbidopa-Levodopa ER 25-100Mg [Sinemet CR 25-100 mg] 1 tab PO BID traZODone HCL 50 mg PO HS PRN PRN Reason: Insomnia Aspirin 81 mg PO DAILY chew Isosorbide Mononitrate ER [Imdur] 30 mg PO DAILY #30 tab.er.24h Discontinued Spironolactone [Aldactone] 12.5 mg PO DAILY Lisinopril-Hctz 20-12.5 mg [Zestoretic 20-12.5] 0.5 tab PO DAILY nadoloL [Corgard] 10 mg PO BID Discharge Medication List Acetaminophen Tab [Tylenol] 1,000 mg PO Q6H PRN 10/04/13 [History] Doxazosin Mesylate [Cardura Xl] 4 mg PO DAILY 10/04/13 [History] Carbidopa-Levodopa 25-100 mg [Sinemet 25-100 mg] 1 tab PO BID 04/26/15 [History] Multivitamins, Thera [Multivitamin (formulary)] 1 tab PO DAILY 04/26/15 [History] Apixaban [Eliquis] 2.5 mg PO BID tablet 05/01/15 [Rx] Atorvastatin [Lipitor] 40 mg PO DAILY 08/01/15 [History] Carbidopa-Levodopa ER 25-100Mg [Sinemet CR 25-100 mg] 1 tab PO BID 10/25/20 [History] traZODone HCL 50 mg PO HS PRN 10/25/20 [History] Aspirin 81 mg PO DAILY chew 10/28/20 [Rx] Isosorbide Mononitrate ER [Imdur] 30 mg PO DAILY #30 tab.er.24h 10/28/20 [Rx] Furosemide [Lasix] 40 mg PO DAILY 30 Days #30 tab 11/17/20 [Rx] Sacubitril/Valsartan [Entresto 24 mg-26 mg Tablet] 1 each PO BID #60 tablet 11/17/20 [Rx] Spironolactone [Aldactone] 25 mg PO DAILY 30 Days #30 tab 11/17/20 [Rx] carvediloL [Coreg] 1.563 mg PO BID-W/MEALS 30 Days #60 dose 11/17/20 [Rx] Follow up Appointment(s)/Referral(s): Cira Ross MD [Primary Care Provider] - 11/29/20 3:15 pm Cira Alarcon MD [STAFF PHYSICIAN] - 12/01/20 10:00 am [facility], [NON-STAFF] - Ryan Rodriguez MD [STAFF PHYSICIAN] - 12/08/20 7:20 am Ambulatory/Diagnostic Orders: Basic Metabolic Panel [LAB.AMB] Time Frame: 3 Days, Location: None Selected Patient Instructions/Handouts: Heart Attack (DC) Activity/Diet/Wound Care/Special Instructions: Activity: As tolerated. Take breaks as needed. Diet: Heart healthy diet. Avoid salt, or foods with hidden salts. Extra salt makes your heart work harder and traps the fluid in your body for longer. Special Instructions: Weigh yourself every morning after you urinate. If you gain 3 pounds overnight or more than 5 pounds in one week, call your primary physician for guidance on your medications. Keep a log of your weights. Take all of your medications as directed, especially your water pills. NEVER skip a dose. And remember to keep all of your doctor's appointments and follow- up as needed. Elevate your legs when you are not up moving around to help with circulation and prevent swelling. Call your physician if you notice any extra swelling in your legs, ankles, feet or abdomen, if you have a new dry cough, if your shortness of breath worsens with activity or at rest, or if you feel more fatigued. You are being discharged home with [facility]. Thank you for allowing us to participate in your care, it was a pleasure having you for our patient!! Discharge Disposition: HOME WITH HOME HEALTH SERVICES <Madeleine Gorman - Last Filed: 11/18/20 18:21> Providers Date of admission: 11/14/20 15:26 Attending physician: Jerrod Morales MD Consults: 11/14/20 15:26 Consult Physician Stat Consulting Provider: Shahriar William Consult Reason/Comments: NSTEMI, bradycardia Do you want consulting provider notified?: Already Contacted 11/16/20 05:49 Consult Physician Routine Consulting Provider: Ryan Rodriguez Consult Reason/Comments: hematuria Do you want consulting provider notified?: Yes 11/16/20 06:18 Consult Physician Urgent Consulting Provider: Ryan Rodriguez Consult Reason/Comments: hematuria Do you want consulting provider notified?: Yes Primary care physician: Cira Ross MD
== END 2020-11-18 14:22 | disposition home health service (06) | DRG 291 ==
LOC: EC 12:25 → 3SCARD 15:26
PROVIDERS: ADMIT Internal Medicine; ATTEND Internal Medicine
DX: I13.0 Hypertensive heart and chronic kidney disease with heart failure and stage 1 through stage 4 chronic kidney disease, or unspecified chronic kidney disease (principal); I50.43 Acute on chronic combined systolic (congestive) and diastolic (congestive) heart failure; G89.29 Other chronic pain; G20 Parkinson's disease; E78.5 Hyperlipidemia, unspecified; D69.6 Thrombocytopenia, unspecified; I25.10 Atherosclerotic heart disease of native coronary artery without angina pectoris; I25.2 Old myocardial infarction; I25.5 Ischemic cardiomyopathy; I48.0 Paroxysmal atrial fibrillation; Z79.01 Long term (current) use of anticoagulants; N18.30 Chronic kidney disease, stage 3 unspecified; N40.1 Benign prostatic hyperplasia with lower urinary tract symptoms; R31.0 Gross hematuria; Z20.822 Contact with and (suspected) exposure to COVID-19; R00.1 Bradycardia, unspecified; Z79.82 Long term (current) use of aspirin; Z79.899 Other long term (current) drug therapy; Z87.891 Personal history of nicotine dependence; Z96.652 Presence of left artificial knee joint; Z90.89 Acquired absence of other organs; Z98.42 Cataract extraction status, left eye; Z98.41 Cataract extraction status, right eye; Z98.890 Other specified postprocedural states
CPT/HCPCS: 36415; 71045; 80048; 80053; 83735; 84439; 84443; 84484; 85025; 85027; 85610; 85730; 87635; 93005; 96374; 96376; 99285

== ENCOUNTER 2020-11-21 10:39 | Inpatient (IN) | payer MEDICARE, BC ==
[2020-11-21] MEDS ORDERED: SODIUM CHLORIDE 0.9% 1,000 ML IV STA (11:00)
--- NOTE | 2020-11-21 11:12 | ED ---
General Adult HPI - General Chief complaint: Recheck/Abnormal Lab/Rx Stated complaint: Low BP Time Seen by Provider: 11/21/20 11:00 Source: patient Mode of arrival: ambulatory Limitations: no limitations - History of Present Illness Initial comments: Dictation was produced using [employer] dictation software. please excuse any grammatical, word or spelling errors. Chief Complaint: 85-year-old male brought in for weakness and hypotension History of Present Illness: Is a 68-year-old male who was just discharged from the hospital 3 days ago. Patient is admitted to the hospital for heart failure. He was also evaluated for hypertension. Patient states it is feeling weak. He is accompanied by one of his sons. Senna check patient's blood pressure has found to be 80 systolic. Pulmonary care nurse came to the house and check his b lood pressures in the 70s. Respiratory emergency department. Patient has no pain complaints. He feels weak. The ROS documented in this emergency department record has been reviewed and confirmed by me. Those systems with pertinent positive or negative responses have been documented in the HPI. All other systems are other negative and/or noncontributory. PHYSICAL EXAM: General Impression: Alert and oriented x3, not in acute distress HEENT: Normocephalic atraumatic, extra-ocular movements intact, pupils equal and reactive to light bilaterally, mucous membranes moist. Cardiovascular: Heart regular rate and rhythm Chest: Able to complete full sentences, no retractions, no tachypnea Abdomen: abdomen soft, non-tender, non-distended, no organomegaly Musculoskeletal: Pulses present and equal in all extremities, no peripheral edema Motor: no focal deficits noted Neurological: CN II-XII grossly intact, no focal motor or sensory deficits noted Skin: Intact with no visualized rashes Psych: Normal affect and mood ED course: 85-year-old male recently admitted to the hospital for heart failure, bradycardia, some tonight hypertension elevated troponins. Presents emergency department for hypertension. Vital signs upon arrival shows blood pressure of 70/51, rest vital signs within acceptable limits. Metabolic panel within acceptable limits. Patient's troponin is 0.134. Patient does have chronically elevated troponin. Urinalysis is negative. Patient reevaluated after the saline bolus with improvement of blood pressures. Last blood pressure was 113/78 he is reevaluated at bedside at 1:55 PM 5 in stable medical condition. Patient will be admitted for blood pressure monitoring. Patient's symptoms likely secondary to dehydration. Case discussed with Dr. Dailey who is willing to accept patient's [facility] EKG interpretation: Ventricular rate 54, sinus bradycardia, MO interval 92, QRS 22, QTc 436. No MO prolongation, no QTC prolongation, no ST or T-wave changes noted. EKG compared to 11/06/2020 showing no changes. Overall, this EKG is unremarkable - Related Data Home Medications Medication Instructions Recorded Confirmed Acetaminophen Tab [Tylenol] 1,000 mg PO Q6H PRN 10/04/13 11/21/20 Doxazosin Mesylate [Cardura Xl] 4 mg PO DAILY 10/04/13 11/21/20 Carbidopa-Levodopa 25-100 mg 1 tab PO BID 04/26/15 11/21/20 [Sinemet 25-100 mg] Multivitamins, Thera [Multivitamin 1 tab PO DAILY 04/26/15 11/21/20 (formulary)] Atorvastatin [Lipitor] 40 mg PO DAILY 08/01/15 11/21/20 Carbidopa-Levodopa ER 25-100Mg 1 tab PO BID 10/25/20 11/21/20 [Sinemet CR 25-100 mg] traZODone HCL 50 mg PO HS PRN 10/25/20 11/21/20 Sacubitril/Valsartan [Entresto 24 1 tab PO BID 11/21/20 11/21/20 mg-26 mg Tablet] carvediloL [Coreg] 1.5625 mg PO AC-BID 11/21/20 11/21/20 Previous Rx's Medication Instructions Recorded Apixaban [Eliquis] 2.5 mg PO BID tablet 05/01/15 Aspirin 81 mg PO DAILY chew 10/28/20 Isosorbide Mononitrate ER [Imdur] 30 mg PO DAILY #30 tab.er.24h 10/28/20 Furosemide [Lasix] 40 mg PO DAILY 30 Days #30 tab 11/17/20 Spironolactone [Aldactone] 25 mg PO DAILY 30 Days #30 tab 11/17/20 Allergies Allergy/AdvReac Type Severity Reaction Status Date / Time No Known Allergies Allergy Verified 11/21/20 10:58 Review of Systems ROS Statement: Those systems with pertinent positive or pertinent negative responses have been documented in the HPI. ROS Other: All systems not noted in ROS Statement are negative. Past Medical History Past Medical History: Atrial Fibrillation, Hypertension, Neurologic Disorder, Prostate Disorder Additional Past Medical History / Comment(s): BPH, L knee pain, Parkinson's History of Any Multi-Drug Resistant Organisms: None Reported Past Surgical History: Joint Replacement, Tonsillectomy Additional Past Surgical History / Comment(s): Total L knee arthroplasty, colonoscopy 2008, bilateral cataract removal. Past Anesthesia/Blood Transfusion Reactions: No Reported Reaction Additional Past Anesthesia/Blood Transfusion Reaction / Comment(s): Pt states he has never received blood. Past Psychological History: No Psychological Hx Reported Smoking Status: Former smoker Past Alcohol Use History: None Reported Past Drug Use History: None Reported - Past Family History Father History Unknown: Yes Family Medical History: Unable to Obtain Additional Family Medical History / Comment(s): Pt did not grow up knowing father. Mother Family Medical History: No Reported History Additional Family Medical History / Comment(s): Mother was healthy. She at age 76yrs. General Exam Limitations: no limitations Course Vital Signs 11/21/20 11/21/20 11/21/20 10:55 11:34 11:45 Temperature 98.5 F Pulse Rate 61 55 L 50 L Respiratory 20 18 18 Rate Blood Pressure 70/51 77/46 74/54 O2 Sat by Pulse 96 92 L 93 L Oximetry 11/21/20 11/21/20 11/21/20 12:00 12:05 12:10 Temperature Pulse Rate 49 L 47 L Respiratory 18 18 18 Rate Blood Pressure 101/72 113/78 O2 Sat by Pulse 97 98 Oximetry 11/21/20 11/21/20 11/21/20 12:15 12:45 13:06 Temperature Pulse Rate 46 L 45 L 45 L Respiratory 18 18 18 Rate Blood Pressure 104/77 96/77 121/71 O2 Sat by Pulse 98 99 98 Oximetry 11/21/20 13:46 Temperature Pulse Rate 43 L Respiratory 18 Rate Blood Pressure 104/78 O2 Sat by Pulse 96 Oximetry Medical Decision Making - Lab Data Result diagrams: 11/21/20 11:54 11/21/20 11:54 Lab Results 11/21/20 11/21/20 11/21/20 Range/Units 11:40 11:54 11:54 WBC 5.5 (3.8-10.6) k/uL RBC 3.36 L (4.30-5.90) m/uL Hgb 11.0 L (13.0-17.5) gm/dL Hct 32.0 L (39.0-53.0) % MCV 95.3 (80.0-100.0) fL MCH 32.8 (25.0-35.0) pg MCHC 34.4 (31.0-37.0) g/dL RDW 13.4 (11.5-15.5) % Plt Count 131 L (150-450) k/uL MPV 7.9 Neutrophils % 78 % Lymphocytes % 10 % Monocytes % 7 % Eosinophils % 2 % Basophils % 0 % Neutrophils # 4.3 (1.3-7.7) k/uL Lymphocytes # 0.6 L (1.0-4.8) k/uL Monocytes # 0.4 (0-1.0) k/uL Eosinophils # 0.1 (0-0.7) k/uL Basophils # 0.0 (0-0.2) k/uL PT 11.3 (9.0-12.0) sec INR 1.1 (<1.2) APTT 24.9 (22.0-30.0) sec Sodium (137-145) mmol/L Potassium (3.5-5.1) mmol/L Chloride (98-107) mmol/L Carbon Dioxide (22-30) mmol/L Anion Gap mmol/L BUN (9-20) mg/dL Creatinine (0.66-1.25) mg/dL Est GFR (CKD-EPI)AfAm (>60 ml/min/1.73 sqM) Est GFR (CKD-EPI)NonAf (>60 ml/min/1.73 sqM) Glucose (74-99) mg/dL Plasma Lactic Acid Torsten (0.7-2.0) mmol/L Calcium (8.4-10.2) mg/dL Ionized Calcium Marzena Magnesium (1.6-2.3) mg/dL Total Bilirubin (0.2-1.3) mg/dL AST (17-59) U/L ALT (4-49) U/L Alkaline Phosphatase (38-126) U/L Troponin I (0.000-0.034) ng/mL NT-Pro-B Natriuret Pep pg/mL Total Protein (6.3-8.2) g/dL Albumin (3.5-5.0) g/dL TSH (0.465-4.680) mIU/L Urine Color Yellow Urine Appearance Clear (Clear) Urine pH 5.0 (5.0-8.0) Ur Specific Hyder 1.012 (1.001-1.035) Urine Protein Negative (Negative) Urine Glucose (UA) Negative (Negative) Urine Ketones Negative (Negative) Urine Blood Small H (Negative) Urine Nitrite Negative (Negative) Urine Bilirubin Negative (Negative) Urine Urobilinogen <2.0 (<2.0) mg/dL Ur Leukocyte Esterase Negative (Negative) Urine RBC 4 (0-5) /hpf Urine WBC 1 (0-5) /hpf Urine WBC Clumps Rare H (None) /hpf Ur Squamous Epith Cells 1 (0-4) /hpf Hyaline Casts 5 H (0-2) /lpf Urine Mucus Rare H (None) /hpf 11/21/20 11/21/20 11/21/20 Range/Units 11:54 11:54 11:54 WBC (3.8-10.6) k/uL RBC (4.30-5.90) m/uL Hgb (13.0-17.5) gm/dL Hct (39.0-53.0) % MCV (80.0-100.0) fL MCH (25.0-35.0) pg MCHC (31.0-37.0) g/dL RDW (11.5-15.5) % Plt Count (150-450) k/uL MPV Neutrophils % % Lymphocytes % % Monocytes % % Eosinophils % % Basophils % % Neutrophils # (1.3-7.7) k/uL Lymphocytes # (1.0-4.8) k/uL Monocytes # (0-1.0) k/uL Eosinophils # (0-0.7) k/uL Basophils # (0-0.2) k/uL PT (9.0-12.0) sec INR (<1.2) APTT (22.0-30.0) sec Sodium 140 (137-145) mmol/L Potassium 3.8 (3.5-5.1) mmol/L Chloride 113 H (98-107) mmol/L Carbon Dioxide 21 L (22-30) mmol/L Anion Gap 6 mmol/L BUN 59 H (9-20) mg/dL Creatinine 1.49 H (0.66-1.25) mg/dL Est GFR (CKD-EPI)AfAm 48 (>60 ml/min/1.73 sqM) Est GFR (CKD-EPI)NonAf 42 (>60 ml/min/1.73 sqM) Glucose 108 H (74-99) mg/dL Plasma Lactic Acid Torsten 1.7 (0.7-2.0) mmol/L Calcium 7.7 L (8.4-10.2) mg/dL Ionized Calcium Marzena Cancelled Magnesium 1.6 (1.6-2.3) mg/dL Total Bilirubin 0.8 (0.2-1.3) mg/dL AST 29 (17-59) U/L ALT 7 (4-49) U/L Alkaline Phosphatase 38 (38-126) U/L Troponin I 0.134 H* (0.000-0.034) ng/mL NT-Pro-B Natriuret Pep pg/mL Total Protein 4.9 L (6.3-8.2) g/dL Albumin 2.7 L (3.5-5.0) g/dL TSH 0.278 L (0.465-4.680) mIU/L Urine Color Urine Appearance (Clear) Urine pH (5.0-8.0) Ur Specific Hyder (1.001-1.035) Urine Protein (Negative) Urine Glucose (UA) (Negative) Urine Ketones (Negative) Urine Blood (Negative) Urine Nitrite (Negative) Urine Bilirubin (Negative) Urine Urobilinogen (<2.0) mg/dL Ur Leukocyte Esterase (Negative) Urine RBC (0-5) /hpf Urine WBC (0-5) /hpf Urine WBC Clumps (None) /hpf Ur Squamous Epith Cells (0-4) /hpf Hyaline Casts (0-2) /lpf Urine Mucus (None) /hpf 11/21/20 11/21/20 Range/Units 11:54 13:03 WBC (3.8-10.6) k/uL RBC (4.30-5.90) m/uL Hgb (13.0-17.5) gm/dL Hct (39.0-53.0) % MCV (80.0-100.0) fL MCH (25.0-35.0) pg MCHC (31.0-37.0) g/dL RDW (11.5-15.5) % Plt Count (150-450) k/uL MPV Neutrophils % % Lymphocytes % % Monocytes % % Eosinophils % % Basophils % % Neutrophils # (1.3-7.7) k/uL Lymphocytes # (1.0-4.8) k/uL Monocytes # (0-1.0) k/uL Eosinophils # (0-0.7) k/uL Basophils # (0-0.2) k/uL PT (9.0-12.0) sec INR (<1.2) APTT (22.0-30.0) sec Sodium (137-145) mmol/L Potassium (3.5-5.1) mmol/L Chloride (98-107) mmol/L Carbon Dioxide (22-30) mmol/L Anion Gap mmol/L BUN (9-20) mg/dL Creatinine (0.66-1.25) mg/dL Est GFR (CKD-EPI)AfAm (>60 ml/min/1.73 sqM) Est GFR (CKD-EPI)NonAf (>60 ml/min/1.73 sqM) Glucose (74-99) mg/dL Plasma Lactic Acid Torsten (0.7-2.0) mmol/L Calcium (8.4-10.2) mg/dL Ionized Calcium Marzena 5.0 Magnesium (1.6-2.3) mg/dL Total Bilirubin (0.2-1.3) mg/dL AST (17-59) U/L ALT (4-49) U/L Alkaline Phosphatase (38-126) U/L Troponin I (0.000-0.034) ng/mL NT-Pro-B Natriuret Pep 842 pg/mL Total Protein (6.3-8.2) g/dL Albumin (3.5-5.0) g/dL TSH (0.465-4.680) mIU/L Urine Color Urine Appearance (Clear) Urine pH (5.0-8.0) Ur Specific Hyder (1.001-1.035) Urine Protein (Negative) Urine Glucose (UA) (Negative) Urine Ketones (Negative) Urine Blood (Negative) Urine Nitrite (Negative) Urine Bilirubin (Negative) Urine Urobilinogen (<2.0) mg/dL Ur Leukocyte Esterase (Negative) Urine RBC (0-5) /hpf Urine WBC (0-5) /hpf Urine WBC Clumps (None) /hpf Ur Squamous Epith Cells (0-4) /hpf Hyaline Casts (0-2) /lpf Urine Mucus (None) /hpf Disposition Clinical Impression: Dehydration, Hypotension Disposition: ADMITTED IP TO THIS HOSP Condition: Fair Referrals: Cira Ross MD [Primary Care Provider] - 1-2 days
[2020-11-21 12:08] LABS: Basophils % (A) 0 %; Eosinophils # (A) 0.1 k/uL (0-0.7); Eosinophils % (A) 2 %; Lymphocytes # (A) 0.6 k/uL (1.0-4.8); Lymphocytes % (A) 10 %; MCH 32.8 pg (25.0-35.0); MCHC 34.4 g/dL (31.0-37.0); MCV 95.3 fL (80.0-100.0); Mean Platelet Volume 7.9; Monocytes # (A) 0.4 k/uL (0-1.0); Monocytes % (A) 7 %; Neutrophils # (A) 4.3 k/uL (1.3-7.7); Neutrophils % (A) 78 %; Platelet Count 131 k/uL (150-450); RBC 3.36 m/uL (4.30-5.90); RDW 13.4 % (11.5-15.5); WBC 5.5 k/uL (3.8-10.6)
[2020-11-21 12:15] LABS: Albumin 2.7 g/dL (3.5-5.0); Calcium 7.7 mg/dL (8.4-10.2); Magnesium 1.6 mg/dL (1.6-2.3); Potassium 3.8 mmol/L (3.5-5.1); Total Bilirubin 0.8 mg/dL (0.2-1.3); Total Protein 4.9 g/dL (6.3-8.2)
[2020-11-21 12:27] LABS: INR 1.1 (<1.2); Partial Thromboplastin Time 24.9 sec (22.0-30.0); Prothrombin Time 11.3 sec (9.0-12.0)
--- NOTE | 2020-11-21 12:28 | XR ---
EXAMINATION TYPE: XR chest 1V portable DATE OF EXAM: 11/21/2020 COMPARISON: 11/14/2020 HISTORY: Hypotension TECHNIQUE: Single frontal view of the chest is obtained. FINDINGS: Heart size is enlarged. Low lung volumes. Overlying leads. Patchy perihilar and interstiti al airspace opacities suggestive of edema. Tiny right pleural effusion. No left pleural effusion. No pneumothorax. IMPRESSION: 1. Findings are suggestive of congestive heart failure. Underlying atypical infection is not occluded .
[2020-11-21] MEDS ORDERED: SODIUM CHLORIDE 0.9% 500 ML 500 ML IV STA (12:40)
[2020-11-21 12:48] LABS: Appearance,Urine Clear (Clear); Bilirubin,Urine Negative (Negative); Blood,Urine Small (Negative); Color,Urine Yellow; Glucose,Urine (UA) Negative (Negative); Hyaline Casts,Urine 5 /lpf (0-2); Ketones,Urine Negative (Negative); Leukocyte Esterase,Urine Negative (Negative); Mucus,Urine Rare /hpf; Nitrite,Urine Negative (Negative); Protein,Urine Negative (Negative); RBC,Urine 4 /hpf (0-5); Specific Gravity,Urine 1.012 (1.001-1.035); Squamous Epithelial Cell,Urine 1 /hpf (0-4); Urobilinogen,Urine <2.0 mg/dL (<2.0); WBC,Urine 1 /hpf (0-5)
[2020-11-21] MEDS ORDERED: NALOXONE 0.4 MG/ML 1 ML VIAL IV PRN (13:52)
[2020-11-21] MEDS ORDERED: HYDROcodone/APAP 5-325MG 1 EACH TAB PO PRN (15:13)
[2020-11-21] MEDS ORDERED: ACETAMINOPHEN TAB 325 MG TAB PO PRN (15:13)
[2020-11-21] MEDS ORDERED: MELATONIN 3 MG TABLET PO PRN (15:13)
[2020-11-21] MEDS ORDERED: traZODone HCL 50 MG TAB PO PRN (15:48)
[2020-11-21] MEDS ORDERED: ACETAMINOPHEN TAB 500 MG TAB PO PRN (15:48)
--- NOTE | 2020-11-21 15:51 | P.HPIM ---
<Noam Gamble - Last Filed: 11/21/20 15:00> History of Present Illness H&P Date: 11/21/20 History of Presenting Illness: Patient is a very pleasant 85-year-old male with a past medical history of atrial fibrillation on Eliquis, ischemic cardiomyopathy, chronic systolic heart failure with a preserved EF 40-45%, CAD, hypertension, hyperlipidemia, CKD stage III, BPH, and Parkinson's disease. Patient presented to our facility with a chief complaint of weakness and hypotension. Patient was recently admitted to our facility from 11/14/20 through 11/18/20 for acute on chronic systolic heart failure exacerbation and bradycardia which resulted in multiple medication changes including discontinuation of his nadolol, hydralazine, and lisinopril and being started on Entresto and Coreg prior to discharge home. During this previous stay, patient did have an isolated episode of symptomatic hypotension after all of these medication changes were made and he was given a single fluid bolus resulting in resolution of hypotension and overnight monitoring with no further needs. Since discharge patient has been at home and reportedly doing well up until this morning. Patient's son states that his dad was complaining of feeling a little weak and he took his father's blood pressure this morning and it was 80 systolic and he went ahead and gave him his breakfast along with his morning medications and when the home care nurse arrived his father's blood pressure had dropped to the 70s systolic. Patient's son states they attempted to call the PCP and plc controls engineer office but were not able to get through to talk to anyone except the answering service so they thought it was best to bring his father to the emergency department to be further checked out. Upon bedside assessment, patient reports that he has been doing well the past couple days but did have some increased weakness this morning. Patient states he has been staying at home and he denies having an air conditioner but states that he likes being warm. Patient also reports that he drinks 2 large glasses of water daily. He denies having any fevers, chills, ooziness, lightheadedness, chest pain or palpitations, feeling of shortness of breath, abdominal pain, changes in appetite, nausea, vomiting, having any changes in or difficulties with urinary or bowel function, and denies any increased swelling in his lower extremities. Upon arrival to the emergency department patient's blood pressure was 70/51. He was given a fluid bolus of 1500 mL which resolved hypotension with current BP of 119/76. EKG was completed showing sinus bradycardia at 54 bpm with occasional PVCs, no noted T-wave or ST abnormalities showing no signs of acute ischemia and unchanged from previous EKG. Chest x-ray indicated of congestive heart failure with patchy peripheral and interstitial airspace opacities suggestive of edema. Troponin elevated at 0.134. BNP normal findings at 842. Review of systems: Pertinent positives and negatives as discussed in HPI, a complete review of syst ems was performed and all other systems are negative. Physical exam: General: non toxic, no distress, appears at stated age Derm: warm, dry Head: atraumatic, normocephalic, symmetric Eyes: EOMI, no lid lag, anicteric sclera Mouth: no lip lesion, mucus membranes dry Cardiovascular: S1-S2 normal with regular rate and rhythm. No murmurs, gallops, or rubs noted. Posterior tibial pulses palpated bilaterally. Cap refill less than 2 seconds. Lungs: Respirations even, regular, and unlabored on 2 L O2 via nasal cannula. Lungs diminished at bilateral bases with no wheezes, rhonchi, or rales noted. No accessory muscle usage. Abdominal: soft, nontender to palpation, no guarding, no appreciable organomegaly Ext: no gross muscle atrophy, no contractures, Trace pitting edema to bilateral lower extremities Neuro: GCS 15. Speech clear. CN II-XI grossly intact, no focal neuro deficits Psych: Alert, oriented, appropriate affect Assessment and Plan of Care: Symptomatic hypotension possibly secondary to dehydration versus adverse effect of recent medication changes -Initial blood pressure 70/51, hypotension resolved with 1500 mL fluid bolus. -Cardiology consulted, appreciate recommendations. -At this time we will hold Lasix pending further recommendations from car diology. We will resume antihypertensive medications with parameters being placed on when to hold. -Orthostatic vitals to be completed. -Telemetry monitoring -Fall precautions Asymptomatic bradycardia -Unchanged from previous admission heart rate ranging from 40s to 60s. -EKG was completed showing sinus bradycardia at 54 bpm with occasional PVCs, no noted T-wave or ST abnormalities showing no signs of acute ischemia and unchanged from previous EKG. -Parameters being placed on carvedilol to hold for heart rate less than 55 pending further recommendations from cardiology. Elevated troponin likely secondary to chronic systolic heart failure -EKG was completed showing sinus bradycardia at 54 bpm with occasional PVCs, no noted T-wave or ST abnormalities showing no signs of acute ischemia and unchanged from previous EKG. -Troponin elevated at 0.134. BNP normal findings at 842 -Chest x-ray indicated of congestive heart failure with patchy peripheral and interstitial airspace opacities suggestive of edema. . -We will trend troponins every 3 hours 3. -Telemetry monitoring. -Cardiology consulted. Chronic systolic heart failure with a preserved EF of 40-45% -Echocardiogram completed 10/26/20 revealing preserved EF of 40-45% with diffuse septal wall hypokinesis. -Chest x-ray indicated of congestive heart failure with patchy peripheral and interstitial airspace opacities suggestive of edema. -BNP normal findings at 842. History of Hypertension, presenting with hypotension -Monitor vital signs and continue daily medication regimen, will place parameters on blood pressure medications. -Orthostatic vitals Hyperlipidemia Continue daily medication regimen with atorvastatin 40 mg nightly. Cardiac diet. Parkinson's disease -Safe and supportive care. Patient to be provided with assistance as needed. -Continue daily medication regimen with carbidopa levodopa. CKD stage III, stable -Currently BUN 59, creatinine 1.49, and GFR 42. -We will continue to monitor with repeat a.m. labs. Chronic thrombocytopenia -Thrombocytopenia with platelet count of 131,000, chronic in nature likely secondary to daily anticoagulant use with Eliquis. -We will continue to monitor with repeat a.m. labs. The patient is admitted with an anticipated greater than 2 midnight stay for evaluation of symptomatic hypotension CODE STATUS: Full code DVT prophylaxis: Eliquis Discussed with: Patient, son, and RN Anticipated discharge date: Clinical course to determine Anticipated discharge place: Possible SNF versus home with home care A total of 45 minutes was spent on the care of this complex patient more than 50% of the time was spent in counseling and care coordination. Past Medical History Past Medical History: Atrial Fibrillation, Hypertension, Neurologic Disorder, Prostate Disorder Additional Past Medical History / Comment(s): BPH, L knee pain, Parkinson's History of Any Multi-Drug Resistant Organisms: None Reported Past Surgical History: Joint Replacement, Tonsillectomy Additional Past Surgical History / Comment(s): Total L knee arthroplasty, colonoscopy 2008, bilateral cataract removal. Past Anesthesia/Blood Transfusion Reactions: No Reported Reaction Additional Past Anesthesia/Blood Transfusion Reaction / Comment(s): Pt states he has never received blood. Past Psychological History: No Psychological Hx Reported Smoking Status: Former smoker Past Alcohol Use History: None Reported Past Drug Use History: None Reported - Past Family History Father History Unknown: Yes Family Medical History: Unable to Obtain Additional Family Medical History / Comment(s): Pt did not grow up knowing father. Mother Family Medical History: No Reported History Additional Family Medical History / Comment(s): Mother was healthy. She at age 76yrs. Medications and Allergies Home Medications Medication Instructions Recorded Confirmed Type Acetaminophen Tab [Tylenol] 1,000 mg PO Q6H PRN 10/04/13 11/21/20 History Doxazosin Mesylate [Cardura Xl] 4 mg PO DAILY 10/04/13 11/21/20 History Carbidopa-Levodopa 25-100 mg 1 tab PO BID 04/26/15 11/21/20 History [Sinemet 25-100 mg] Multivitamins, Thera [Multivitamin 1 tab PO DAILY 04/26/15 11/21/20 History (formulary)] Apixaban [Eliquis] 2.5 mg PO BID tablet 05/01/15 11/21/20 Rx Atorvastatin [Lipitor] 40 mg PO DAILY 08/01/15 11/21/20 History Carbidopa-Levodopa ER 25-100Mg 1 tab PO BID 10/25/20 11/21/20 History [Sinemet CR 25-100 mg] traZODone HCL 50 mg PO HS PRN 10/25/20 11/21/20 History Aspirin 81 mg PO DAILY chew 10/28/20 11/21/20 Rx Isosorbide Mononitrate ER [Imdur] 30 mg PO DAILY #30 tab.er.24h 10/28/20 11/21/20 Rx Furosemide [Lasix] 40 mg PO DAILY 30 Days #30 tab 11/17/20 11/21/20 Rx Spironolactone [Aldactone] 25 mg PO DAILY 30 Days #30 tab 11/17/20 11/21/20 Rx Sacubitril/Valsartan [Entresto 24 1 tab PO BID 11/21/20 11/21/20 History mg-26 mg Tablet] carvediloL [Coreg] 1.5625 mg PO AC-BID 11/21/20 11/21/20 History Allergies Allergy/AdvReac Type Severity Reaction Status Date / Time No Known Allergies Allergy Verified 11/21/20 10:58 Physical Exam Vitals: Vital Signs Temp Pulse Resp BP Pulse Ox 11/21/20 14:25 54 L 18 119/76 96 11/21/20 13:46 43 L 18 104/78 96 11/21/20 13:06 45 L 18 121/71 98 11/21/20 12:45 45 L 18 96/77 99 11/21/20 12:15 46 L 18 104/77 98 11/21/20 12:10 18 11/21/20 12:05 47 L 18 113/78 98 11/21/20 12:00 49 L 18 101/72 97 11/21/20 11:45 50 L 18 74/54 93 L 11/21/20 11:34 55 L 18 77/46 92 L 11/21/20 10:55 98.5 F 61 20 70/51 96 Intake and Output 11/21/20 11/21/20 11/21/20 06:59 14:59 22:59 Other: Weight 85.729 kg Results CBC & Chem 7: 11/21/20 11:54 11/21/20 11:54 Labs: Abnormal Lab Results - Last 24 Hours (Table) 11/21/20 11/21/20 11/21/20 Range/Units 11:40 11:54 11:54 RBC 3.36 L (4.30-5.90) m/uL Hgb 11.0 L (13.0-17.5) gm/dL Hct 32.0 L (39.0-53.0) % Plt Count 131 L (150-450) k/uL Lymphocytes # 0.6 L (1.0-4.8) k/uL Chloride 113 H (98-107) mmol/L Carbon Dioxide 21 L (22-30) mmol/L BUN 59 H (9-20) mg/dL Creatinine 1.49 H (0.66-1.25) mg/dL Glucose 108 H (74-99) mg/dL Calcium 7.7 L (8.4-10.2) mg/dL Troponin I (0.000-0.034) ng/mL Total Protein 4.9 L (6.3-8.2) g/dL Albumin 2.7 L (3.5-5.0) g/dL TSH 0.278 L (0.465-4.680) mIU/L Urine Blood Small H (Negative) Urine WBC Clumps Rare H (None) /hpf Hyaline Casts 5 H (0-2) /lpf Urine Mucus Rare H (None) /hpf 11/21/20 Range/Units 11:54 RBC (4.30-5.90) m/uL Hgb (13.0-17.5) gm/dL Hct (39.0-53.0) % Plt Count (150-450) k/uL Lymphocytes # (1.0-4.8) k/uL Chloride (98-107) mmol/L Carbon Dioxide (22-30) mmol/L BUN (9-20) mg/dL Creatinine (0.66-1.25) mg/dL Glucose (74-99) mg/dL Calcium (8.4-10.2) mg/dL Troponin I 0.134 H* (0.000-0.034) ng/mL Total Protein (6.3-8.2) g/dL Albumin (3.5-5.0) g/dL TSH (0.465-4.680) mIU/L Urine Blood (Negative) Urine WBC Clumps (None) /hpf Hyaline Casts (0-2) /lpf Urine Mucus (None) /hpf <Rafael Dailey - Last Filed: 11/21/20 16:07> History of Present Illness Patient seen and examined independently. Patient was also seen by Noam Gamble NP and case was discussed. I am in agreement with subjective, physical exam, assessment and plan as written above and amended below. General: non toxic, no distress, appears at stated age, normal weight Derm: no unusual rashes/lesions no unusual ecchymoses, warm, dry Head: atraumatic, normocephalic, symmetric Eyes: EOMI, no lid lag, anicteric sclera, pupils equal round reactive to light ENT: Nose and ears atraumatic, no thrush, no pharyngeal erythema Neck: No thyromegaly, no cervical lymphadenopathy, trachea midline, supple Mouth: no lip lesion, mucus membranes moist Cardiovascular: S1S2 reg, no murmur, positive posterior tibial pulse bilateral, no edema, capillary refill less than 2 seconds Lungs: CTA bilateral, no rhonchi, no rales , no accessory muscle use Abdominal: soft, nontender to palpation, no guarding, no appreciable organomegaly, normal bowel sounds Ext: no gross muscle atrophy, muscle strength 5 out of 5 in all 4 extremities grossly, no contractures, Neuro: CN II-XI grossly intact, light touch intact all 4 extremities, finger to nose within normal limits, Psych: Alert, oriented, appropriate affect Physical Exam Vitals: Vital Signs Temp Pulse Resp BP Pulse Ox 11/21/20 16:02 44 L 18 136/98 97 11/21/20 15:16 55 L 18 116/84 98 11/21/20 14:25 54 L 18 119/76 96 11/21/20 13:46 43 L 18 104/78 96 11/21/20 13:06 45 L 18 121/71 98 11/21/20 12:45 45 L 18 96/77 99 11/21/20 12:15 46 L 18 104/77 98 11/21/20 12:10 18 11/21/20 12:05 47 L 18 113/78 98 11/21/20 12:00 49 L 18 101/72 97 11/21/20 11:45 50 L 18 74/54 93 L 11/21/20 11:34 55 L 18 77/46 92 L 11/21/20 10:55 98.5 F 61 20 70/51 96 Intake and Output 11/21/20 11/21/20 11/21/20 06:59 14:59 22:59 Other: Weight 85.729 kg Results CBC & Chem 7: 11/21/20 11:54 11/21/20 11:54 Labs: Abnormal Lab Results - Last 24 Hours (Table) 11/21/20 11/21/20 11/21/20 Range/Units 11:40 11:54 11:54 RBC 3.36 L (4.30-5.90) m/uL Hgb 11.0 L (13.0-17.5) gm/dL Hct 32.0 L (39.0-53.0) % Plt Count 131 L (150-450) k/uL Lymphocytes # 0.6 L (1.0-4.8) k/uL Chloride 113 H (98-107) mmol/L Carbon Dioxide 21 L (22-30) mmol/L BUN 59 H (9-20) mg/dL Creatinine 1.49 H (0.66-1.25) mg/dL Glucose 108 H (74-99) mg/dL Calcium 7.7 L (8.4-10.2) mg/dL Troponin I (0.000-0.034) ng/mL Total Protein 4.9 L (6.3-8.2) g/dL Albumin 2.7 L (3.5-5.0) g/dL TSH 0.278 L (0.465-4.680) mIU/L Urine Blood Small H (Negative) Urine WBC Clumps Rare H (None) /hpf Hyaline Casts 5 H (0-2) /lpf Urine Mucus Rare H (None) /hpf 11/21/20 Range/Units 11:54 RBC (4.30-5.90) m/uL Hgb (13.0-17.5) gm/dL Hct (39.0-53.0) % Plt Count (150-450) k/uL Lymphocytes # (1.0-4.8) k/uL Chloride (98-107) mmol/L Carbon Dioxide (22-30) mmol/L BUN (9-20) mg/dL Creatinine (0.66-1.25) mg/dL Glucose (74-99) mg/dL Calcium (8.4-10.2) mg/dL Troponin I 0.134 H* (0.000-0.034) ng/mL Total Protein (6.3-8.2) g/dL Albumin (3.5-5.0) g/dL TSH (0.465-4.680) mIU/L Urine Blood (Negative) Urine WBC Clumps (None) /hpf Hyaline Casts (0-2) /lpf Urine Mucus (None) /hpf
[2020-11-21] MEDS: APIXABAN 2.5 MG TABLET PO SCH (20:40)
[2020-11-21] MEDS: CARBIDOPA-LEVODOPA ER 25-100MG 1 EACH TABLET.ER PO SCH (20:40)
[2020-11-21] MEDS: CARBIDOPA-LEVODOPA 25-100 MG 1 EACH TAB PO SCH (20:40)
[2020-11-21] MEDS: SACUBITRIL/VALSARTAN 24 MG-26 MG TABLET PO SCH (20:40)
[2020-11-22 07:21] LABS: Basophils % (A) 0 %; Eosinophils # (A) 0.1 k/uL (0-0.7); Eosinophils % (A) 2 %; HCT 38.6 % (39.0-53.0); HGB 13.1 gm/dL (13.0-17.5); Lymphocytes # (A) 0.7 k/uL (1.0-4.8); Lymphocytes % (A) 11 %; MCH 32.4 pg (25.0-35.0); MCV 95.5 fL (80.0-100.0); Monocytes # (A) 0.4 k/uL (0-1.0); Monocytes % (A) 6 %; Neutrophils # (A) 4.8 k/uL (1.3-7.7); Neutrophils % (A) 79 %; Platelet Count 148 k/uL (150-450); RBC 4.05 m/uL (4.30-5.90); RDW 13.5 % (11.5-15.5); WBC 6.1 k/uL (3.8-10.6)
[2020-11-22 07:35] LABS: ALT <6 U/L (4-49); AST 35 U/L (17-59); African American GFR (CKD) 49 (>60 ml/min/1.73 sqM); Albumin 3.8 g/dL (3.5-5.0); Alkaline Phosphatase 62 U/L (38-126); Anion Gap 5 mmol/L; Blood Urea Nitrogen 62 mg/dL (9-20); Calcium 9.6 mg/dL (8.4-10.2); Carbon Dioxide 31 mmol/L (22-30); Chloride 105 mmol/L (98-107); Glucose 113 mg/dL (74-99); Non-African American GFR(CKD) 43 (>60 ml/min/1.73 sqM); Potassium 4.7 mmol/L (3.5-5.1); Sodium 141 mmol/L (137-145); Total Bilirubin 0.8 mg/dL (0.2-1.3); Total Protein 6.3 g/dL (6.3-8.2)
[2020-11-22] MEDS: CARBIDOPA-LEVODOPA ER 25-100MG 1 EACH TABLET.ER PO SCH ×2 (08:46→20:13)
[2020-11-22] MEDS: ATORVASTATIN 40 MG TAB PO SCH (08:46)
[2020-11-22] MEDS: ASPIRIN 81 MG PO SCH (08:46)
[2020-11-22] MEDS: DOXAZOSIN 2 MG TAB PO SCH ×2 (08:46→20:13)
[2020-11-22] MEDS: ISOSORBIDE MONONITRATE ER 30 MG TAB.ER.24H PO SCH (08:46)
[2020-11-22] MEDS: CARBIDOPA-LEVODOPA 25-100 MG 1 EACH TAB PO SCH ×2 (08:46→20:13)
[2020-11-22] MEDS: APIXABAN 2.5 MG TABLET PO SCH ×2 (08:46→20:13)
[2020-11-22] MEDS: SACUBITRIL/VALSARTAN 24 MG-26 MG TABLET PO SCH ×2 (08:47→20:13)
--- NOTE | 2020-11-22 10:23 | P.PN ---
Subjective Progress Note Date: 11/22/20 Hospital course: Patient is a very pleasant 85-year-old male with a past medical history of atrial fibrillation on Eliquis, ischemic cardiomyopathy, chronic systolic heart failure with a preserved EF 40-45%, CAD, hypertension, hyperlipidemia, CKD stage III, BPH, and Parkinson's disease. Patient presented to our facility with a chief complaint of weakness and hypotension. Patient was recently admitted to our facility from 11/14/20 through 11/18/20 for acute on chronic systolic heart failure exacerbation and bradycardia which resulted in multiple medication yudy nges including discontinuation of his nadolol, hydralazine, and lisinopril and being started on Entresto and Coreg prior to discharge home. During this previous stay, patient did have an isolated episode of symptomatic hypotension after all of these medication changes were made and he was given a single fluid bolus resulting in resolution of hypotension and overnight monitoring with no further needs. Since discharge patient has been at home and reportedly doing well up until this morning. Patient's son states that his dad was complaining of feeling a little weak and he took his father's blood pressure this morning and it was 80 systolic and he went ahead and gave him his breakfast along with his morning medications and when the home care nurse arrived his father's blood pressure had dropped to the 70s systolic. Patient's son states they attempted to call the PCP and antitank assault gunner office but were not able to get through to talk to anyone except the answering service so they thought it was best to bring his father to the emergency department to be further checked out. Upon bedside assessment, patient reports that he has been doing well the past couple days but did have some increased weakness this morning. Patient states he has been staying at home and he denies having an air conditioner but states that he likes being warm. Patient also reports that he drinks 2 large glasses of water daily. He denies having any fevers, chills, ooziness, lightheadedness, chest pain or palpitations, feeling of shortness of breath, abdominal pain, changes in appetite, nausea, vomiting, having any changes in or difficulties with urinary or bowel function, and denies any increased swelling in his lower extremities. Upon arrival to the emergency department patient's blood pressure was 70/51. He was given a fluid bolus of 1500 mL which resolved hypotension with current BP of 119/76. EKG was completed showing sinus bradycardia at 54 bpm with occasional PVCs, no noted T-wave or ST abnormalities showing no signs of acute ischemia and unchanged from previous EKG. Chest x-ray indicated of congestive heart failure with patchy peripheral and interstitial airspace opacities suggestive of edema. Troponin elevated at 0.134. BNP normal findings at 842. Physical exam: Patient has had no further episodes of hypotension since receiving 1.5 L bolus in ED upon arrival to hospitalIn his weakness and fatigue has seemed to improve. Symptomatic hypotension is Believed to be secondary to dehydration with patient being in house without air-conditioner on Lasix and drinking only 2 glasses of water daily. Awaiting recommendations from cardiology on whether to resume Lasix and Aldactone. Currently PT at bedside to work with patient. Patient d enies having any headache, lightheadedness, dizziness, chest pain, palpitations, or shortness of breath. General: non toxic, no distress, appears at stated age Derm: warm, dry Head: atraumatic, normocephalic, symmetric Eyes: EOMI, no lid lag, anicteric sclera Mouth: no lip lesion, mucus membranes dry Cardiovascular: S1-S2 normal with regular rate and rhythm. No murmurs, gallops, or rubs noted. Posterior tibial pulses palpated bilaterally. Cap refill less than 2 seconds. Lungs: Respirations even, regular, and unlabored on Room air. Lungs diminished at bilateral bases with no wheezes, rhonchi, or rales noted. No accessory muscle usage. Abdominal: soft, nontender to palpation, no guarding, no appreciable organomegaly Ext: no gross muscle atrophy, no contractures, Trace pitting edema to bilateral lower extremities Neuro: GCS 15. Speech clear. CN II-XI grossly intact, no focal neuro deficits Psych: Alert, oriented, appropriate affect Assessment and Plan of Care: Symptomatic hypotension Likely secondary to dehydration versus adverse effect of recent medication changes -Initial blood pressure 70/51, hypotension resolved with 1500 mL fluid bolus. -Cardiology consulted, appreciate recommendations. -At this time we will hold Lasix pending further recommendations from cardiology. We will resume antihypertensive medications with parameters being placed on when to hold. -Orthostatic vitals to be completed. -Telemetry monitoring -Fall precautions Asymptomatic bradycardia -Unchanged from previous admission heart rate ranging from 40s to 60s. -EKG was completed showing sinus bradycardia at 54 bpm with occasional PVCs, no noted T-wave or ST abnormalities showing no signs of acute ischemia and unchanged from previous EKG. -Parameters being placed on carvedilol to hold for heart rate less than 55 pending further recommendations from cardiology. Elevated troponin likely secondary to chronic systolic heart failure -EKG was completed showing sinus bradycardia at 54 bpm with occasional PVCs, no noted T-wave or ST abnormalities showing no signs of acute ischemia and unchanged from previous EKG. -Troponin elevated at 0.134. BNP normal findings at 842 -Chest x-ray indicated of congestive heart failure with patchy peripheral and interstitial airspace opacities suggestive of edema. . -Troponins trended and were flat with initial troponin 0.134, followed by 0.108 and 0.101. -Telemetry monitoring. -Cardiology consulted. Chronic systolic heart failure with a preserved EF of 40-45% -Echocardiogram completed 10/26/20 revealing preserved EF of 40-45% with diffuse septal wall hypokinesis. -Chest x-ray indicated of congestive heart failure with patchy peripheral and interstitial airspace opacities suggestive of edema. -BNP normal findings at 842. History of Hypertension -Monitor vital signs and continue daily medication regimen, will place parameters on blood pressure medications. -Orthostatic vitals Hyperlipidemia Continue daily medication regimen with atorvastatin 40 mg nightly. Cardiac diet. Parkinson's disease -Safe and supportive care. Patient to be provided with assistance as needed. -Continue daily medication regimen with carbidopa levodopa. CKD stage III, stable -Currently BUN 62, creatinine 1.46, and GFR 43.. -We will continue to monitor with repeat a.m. labs. Chronic thrombocytopenia -Thrombocytopenia with platelet count of 148,000, chronic in nature likely secondary to daily anticoagulant use with Eliquis. -We will continue to monitor with repeat a.m. labs. CODE STATUS: Full code DVT prophylaxis: Eliquis Discussed with: Patient and RN Anticipated discharge date: Clinical course to determine, likely tomorrow Anticipated discharge place: Possible SNF versus home with home care A total of 45 minutes was spent on the care of this complex patient more than 50% of the time was spent in counseling and care coordination. Objective - Vital Signs Vital signs: Vital Signs Temp 97.7 F 11/22/20 04:00 Pulse 55 L 11/22/20 04:00 Resp 18 11/22/20 04:00 BP 156/77 11/22/20 04:00 Pulse Ox 96 11/22/20 04:00 Intake & Output 11/21/20 11/22/20 11/22/20 18:59 06:59 18:59 Intake Total 10 120 Output Total 475 400 Balance -465 -280 Weight 85.729 kg 85.5 kg Intake: IV 10 0.9 10 Oral 120 Output: Urine 475 400 Other: Voiding Method Urinal # Voids 1 # Bowel Movements 0 - Labs CBC & Chem 7: 11/22/20 06:47 11/22/20 06:47 Labs: Abnormal Lab Results - Last 24 Hours (Table) 11/21/20 11/21/20 11/21/20 Range/Units 11:40 11:54 11:54 RBC 3.36 L (4.30-5.90) m/uL Hgb 11.0 L (13.0-17.5) gm/dL Hct 32.0 L (39.0-53.0) % Plt Count 131 L (150-450) k/uL Lymphocytes # 0.6 L (1.0-4.8) k/uL Chloride 113 H (98-107) mmol/L Carbon Dioxide 21 L (22-30) mmol/L BUN 59 H (9-20) mg/dL Creatinine 1.49 H (0.66-1.25) mg/dL Glucose 108 H (74-99) mg/dL Calcium 7.7 L (8.4-10.2) mg/dL Troponin I (0.000-0.034) ng/mL Total Protein 4.9 L (6.3-8.2) g/dL Albumin 2.7 L (3.5-5.0) g/dL TSH 0.278 L (0.465-4.680) mIU/L Urine Blood Small H (Negative) Urine WBC Clumps Rare H (None) /hpf Hyaline Casts 5 H (0-2) /lpf Urine Mucus Rare H (None) /hpf 11/21/20 11/21/20 11/21/20 Range/Units 11:54 15:32 19:08 RBC (4.30-5.90) m/uL Hgb (13.0-17.5) gm/dL Hct (39.0-53.0) % Plt Count (150-450) k/uL Lymphocytes # (1.0-4.8) k/uL Chloride (98-107) mmol/L Carbon Dioxide (22-30) mmol/L BUN (9-20) mg/dL Creatinine (0.66-1.25) mg/dL Glucose (74-99) mg/dL Calcium (8.4-10.2) mg/dL Troponin I 0.134 H* 0.108 H* 0.101 H* (0.000-0.034) ng/mL Total Protein (6.3-8.2) g/dL Albumin (3.5-5.0) g/dL TSH (0.465-4.680) mIU/L Urine Blood (Negative) Urine WBC Clumps (None) /hpf Hyaline Casts (0-2) /lpf Urine Mucus (None) /hpf 11/22/20 11/22/20 Range/Units 06:47 06:47 RBC 4.05 L (4.30-5.90) m/uL Hgb (13.0-17.5) gm/dL Hct 38.6 L (39.0-53.0) % Plt Count 148 L (150-450) k/uL Lymphocytes # 0.7 L (1.0-4.8) k/uL Chloride (98-107) mmol/L Carbon Dioxide 31 H (22-30) mmol/L BUN 62 H (9-20) mg/dL Creatinine 1.46 H (0.66-1.25) mg/dL Glucose 113 H (74-99) mg/dL Calcium (8.4-10.2) mg/dL Troponin I (0.000-0.034) ng/mL Total Protein (6.3-8.2) g/dL Albumin (3.5-5.0) g/dL TSH (0.465-4.680) mIU/L Urine Blood (Negative) Urine WBC Clumps (None) /hpf Hyaline Casts (0-2) /lpf Urine Mucus (None) /hpf
--- NOTE | 2020-11-22 12:31 | P.CRDCN ---
History of Present Illness Consult date: 11/22/20 History of present illness: HISTORY OF PRESENT ILLNESS: This is a 85-year-old male with a past medical history significant for paroxysmal atrial fibrillation on anticoagulation with Eliquis, congestive heart failure, coronary artery disease, Parkinson's disease, hypertension, and chronic kidney disease. Patient follows in the office with Dr. Alarcon. We have been asked to see the patient in consultation for hypotension. Patient examined at the bedside. It is noted that the patient was hospitalized in the beginning of October for a non-STEMI and medical management was recommended. Patient was recently admitted to the hospital from 11/14/2020 until 11/18/2020 secondary to bradycardia and CHF. Patient's medications were adjusted at that time. He was discharged home on Entresto and Coreg. Apparently the patient was previously taking nadolol, hydralazine, and lisinopril which were discontinued. Patient states he was at home and was feeling dizzy. His son took his blood pressure and he was found to be hypotensive with a systolic blood pressure in the 80s. Blood pressure within the patient came to the emergency room was in the 70s. He received 1500cc and fluid boluses in the emergency room. Patient's blood pressure has been stable since that time. Patient denies any dizziness or lightheadedness. He denies shortness of breath. He denies chest pain or pressure. EKG reveals sinus bradycardia with PVCs Chest xray findings are suggestive of congestive heart failure. Underlying atypical infection not excluded Laboratory data: WBC 6.1. Hemoglobin 13.1. Platelet count 148. Sodium 141. Potassium 4.7. BUN 62. Creatinine 1.46. Troponin 0.134. 0.108. 0.101. Current home cardiac medications include Entresto 24-26mg BID, carvedilol 1.5625 mg twice a day, Aldactone 25 mg daily, Imdur 30 mg daily, Lasix 40 mg daily, Lipitor 40 mg daily, aspirin 81 mg daily, and Eliquis 2.5 mg twice a day Most recent echocardiogram obtained in October 2020 revealed ejection fraction 40- 45%, basal inferior and basal inferoseptal LV wall hypokinesis, mid inferior LV wall hypokinesis, mid inferoseptal LV wall hypokinesis, mild mitral regur gitation, and mild tricuspid regurgitation Cardiac catheterization history: 2015 revealing mild to moderate disease of the LAD and circumflex. REVIEW OF SYSTEMS: At the time of my exam: CONSTITUTIONAL: Denies fever or chills. HEENT: Denies blurred vision, vision changes, or eye pain. Denies hemoptysis CARDIOVASCULAR: Denies chest pain. Denies orthopnea. Denies PND. Denies palpitations RESPIRATORY: Denies shortness of breath. GASTROINTESTINAL: Denies abdominal pain. Denies nausea or vomiting. HEMATOLOGIC: Denies bleeding disorders. GENITOURINARY: Denies any blood in urine. SKIN: Denies pruitis. Denies rash. PHYSICAL EXAM: VITAL SIGNS: Reviewed. GENERAL: Well-developed in no acute distress. HEENT: Head is normocephalic. Pupils are equal, round. Sclerae anicteric. Mucous membranes of the mouth are moist. Neck supple. No JVD or thyromegaly LUNGS: Respirations even and unlabored. Lungs essentially clear to auscultation bilaterally. HEART: Regular rate and rhythm. S1 and S2 heard. ABDOMEN: Soft. Nondistended. Nontender. EXTREMITIES: Normal range of motion. No clubbing or cyanosis. Peripheral pulses intact. No lower extremity edema NEUROLOGIC: Awake and alert. Oriented x 3. ASSESSMENT: Hypotension, symptomatic with dizziness, resolved Elevated troponin, not suggestive of acute coronary syndrome, may be secondary to CKD Chronic systolic heart failure, EF 40% Coronary artery disease Paroxysmal atrial fibrillation on anticoagulation with Eliquis Hypertension Hyperlipidemia PLAN: Continue current cardiac medications Resume Lasix and Aldactone Monitor blood pressure Possible discharge home tomorrow if patient remains stable Further recommendations pending patient course Nurse practitioner note has been reviewed by physician. Signing provider agrees with the documented findings, assessment, and plan of care. Past Medical History Past Medical History: Atrial Fibrillation, Hypertension, Neurologic Disorder, Prostate Disorder Additional Past Medical History / Comment(s): BPH, L knee pain, Parkinson's History of Any Multi-Drug Resistant Organisms: None Reported Past Surgical History: Joint Replacement, Tonsillectomy Additional Past Surgical History / Comment(s): Total L knee arthroplasty, colonoscopy 2008, bilateral cataract removal. Past Anesthesia/Blood Transfusion Reactions: No Reported Reaction Additional Past Anesthesia/Blood Transfusion Reaction / Comment(s): Pt states he has never received blood. Past Psychological History: No Psychological Hx Reported Additional Psychological History / Comment(s): Pt resides alone. He is very independent. He drives. He uses a cane Smoking Status: Former smoker Past Alcohol Use History: None Reported Additional Past Alcohol Use History / Comment(s): PT states he started smoking at age 15 yrs and quit in 1996 at age 61. Past Drug Use History: None Reported - Past Family History Father History Unknown: Yes Family Medical History: Unable to Obtain Additional Family Medical History / Comment(s): Pt did not grow up knowing father. Mother Family Medical History: No Reported History Additional Family Medical History / Comment(s): Mother was healthy. She at age 76yrs. Medications and Allergies Home Medications Medication Instructions Recorded Confirmed Type Acetaminophen Tab [Tylenol] 1,000 mg PO Q6H PRN 10/04/13 11/21/20 History Doxazosin Mesylate [Cardura Xl] 4 mg PO DAILY 10/04/13 11/21/20 History Carbidopa-Levodopa 25-100 mg 1 tab PO BID 04/26/15 11/21/20 History [Sinemet 25-100 mg] Multivitamins, Thera [Multivitamin 1 tab PO DAILY 04/26/15 11/21/20 History (formulary)] Apixaban [Eliquis] 2.5 mg PO BID tablet 05/01/15 11/21/20 Rx Atorvastatin [Lipitor] 40 mg PO DAILY 08/01/15 11/21/20 History Carbidopa-Levodopa ER 25-100Mg 1 tab PO BID 10/25/20 11/21/20 History [Sinemet CR 25-100 mg] traZODone HCL 50 mg PO HS PRN 10/25/20 11/21/20 History Aspirin 81 mg PO DAILY chew 10/28/20 11/21/20 Rx Isosorbide Mononitrate ER [Imdur] 30 mg PO DAILY #30 tab.er.24h 10/28/20 11/21/20 Rx Furosemide [Lasix] 40 mg PO DAILY 30 Days #30 tab 11/17/20 11/21/20 Rx Spironolactone [Aldactone] 25 mg PO DAILY 30 Days #30 tab 11/17/20 11/21/20 Rx Sacubitril/Valsartan [Entresto 24 1 tab PO BID 11/21/20 11/21/20 History mg-26 mg Tablet] carvediloL [Coreg] 1.5625 mg PO AC-BID 11/21/20 11/21/20 History Allergies Allergy/AdvReac Type Severity Reaction Status Date / Time No Known Allergies Allergy Verified 11/21/20 10:58 Physical Exam Vitals: Vital Signs Temp Pulse Pulse Resp BP BP Pulse Ox 11/22/20 08:00 98.1 F 50 L 152/81 96 11/22/20 04:00 97.7 F 55 L 18 156/77 96 11/22/20 01:44 51 L 18 11/22/20 00:00 97.7 F 51 L 18 126/72 97 11/21/20 20:00 50 L 18 11/21/20 19:46 97.6 F 50 L 18 139/83 98 11/21/20 18:49 98 11/21/20 18:34 97.9 F 49 L 18 119/101 99 11/21/20 17:01 45 L 18 139/79 95 11/21/20 16:02 44 L 18 136/98 97 11/21/20 15:16 55 L 18 116/84 98 11/21/20 14:25 54 L 18 119/76 96 11/21/20 13:46 43 L 18 104/78 96 11/21/20 13:06 45 L 18 121/71 98 11/21/20 12:45 45 L 18 96/77 99 Intake and Output 11/21/20 11/22/20 11/22/20 22:59 06:59 14:59 Intake Total 10 120 Output Total 475 500 Balance -465 -380 Intake: IV 10 0.9 10 Oral 120 Output: Urine 475 500 Other: Voiding Method Urinal Urinal # Voids 1 # Bowel Movements 0 Weight 85.729 kg 85.5 kg Results 11/22/20 06:47 11/22/20 06:47 Cardiac Enzymes 11/21/20 11/21/20 11/21/20 Range/Units 11:54 15:32 19:08 AST (17-59) U/L Troponin I 0.134 H* 0.108 H* 0.101 H* (0.000-0.034) ng/mL 11/22/20 Range/Units 06:47 AST 35 (17-59) U/L Troponin I (0.000-0.034) ng/mL Coagulation 11/21/20 Range/Units 11:54 PT 11.3 (9.0-12.0) sec APTT 24.9 (22.0-30.0) sec CBC 11/22/20 Range/Units 06:47 WBC 6.1 (3.8-10.6) k/uL RBC 4.05 L (4.30-5.90) m/uL Hgb 13.1 (13.0-17.5) gm/dL Hct 38.6 L (39.0-53.0) % Plt Count 148 L (150-450) k/uL Comprehensive Metabolic Panel 11/22/20 Range/Units 06:47 Sodium 141 (137-145) mmol/L Potassium 4.7 (3.5-5.1) mmol/L Chloride 105 (98-107) mmol/L Carbon Dioxide 31 H (22-30) mmol/L BUN 62 H (9-20) mg/dL Creatinine 1.46 H (0.66-1.25) mg/dL Glucose 113 H (74-99) mg/dL Calcium 9.6 (8.4-10.2) mg/dL AST 35 (17-59) U/L ALT <6 (4-49) U/L Alkaline Phosphatase 62 (38-126) U/L Total Protein 6.3 (6.3-8.2) g/dL Albumin 3.8 (3.5-5.0) g/dL Current Medications Generic Name Dose Route Start Last Admin Trade Name Freq PRN Reason Stop Dose Admin Acetaminophen 650 mg 11/21/20 15:13 Acetaminophen Tab 325 Mg Tab PO Q6HR PRN Mild Pain or Fever > 100.5 Hydrocodone Bitart/Acetaminophen 1 each 11/21/20 15:13 11/22/20 03:59 Hydrocodone/Apap 5-325mg 1 Each Tab PO 1 each Q4HR PRN Administration Moderate Pain Apixaban 2.5 mg 11/21/20 21:00 11/22/20 08:46 Apixaban 2.5 Mg Tablet PO 2.5 mg BID BAKARI Administration Protocol Aspirin 81 mg 11/22/20 09:00 11/22/20 08:46 Aspirin 81 Mg PO 81 mg DAILY BAKARI Administration Atorvastatin Calcium 40 mg 11/22/20 09:00 11/22/20 08:46 Atorvastatin 40 Mg Tab PO 40 mg DAILY BAKARI Administration Carbidopa/Levodopa 1 each 11/21/20 21:00 11/22/20 08:46 Carbidopa-Levodopa 25-100 Mg 1 Each Tab PO 1 each BID BAKARI Administration Carbidopa/Levodopa 1 each 11/21/20 21:00 11/22/20 08:46 Carbidopa-Levodopa Er 25-100mg 1 Each Tablet.Er PO 1 each BID BAKARI Administration Carvedilol 1.563 mg 11/21/20 17:30 11/22/20 06:57 Carvedilol 1.563 Mg Tab PO 1.563 mg AC-BID BAKARI Administration Doxazosin Mesylate 2 mg 11/22/20 09:00 11/22/20 08:46 Doxazosin 2 Mg Tab PO 2 mg BID BAKARI Administration Isosorbide Mononitrate 30 mg 11/22/20 09:00 11/22/20 08:46 Isosorbide Mononitrate Er 30 Mg Tab.Er.24h PO 30 mg DAILY BAKARI Administration Melatonin 3 mg 11/21/20 15:13 Melatonin 3 Mg Tablet PO HS PRN Insomnia Naloxone HCl 0.2 mg 11/21/20 13:52 Naloxone 0.4 Mg/Ml 1 Ml Vial IV Q2M PRN Opioid Reversal Sacubitril/Valsartan 1 each 11/21/20 21:00 11/22/20 08:47 Sacubitril/Valsartan 24 Mg-26 Mg Tablet PO 1 each BID BAKARI Administration Trazodone HCl 50 mg 11/21/20 15:48 Trazodone Hcl 50 Mg Tab PO HS PRN Insomnia Intake and Output 11/21/20 11/22/20 11/22/20 22:59 06:59 14:59 Intake Total 10 120 Output Total 475 500 Balance -465 -380 Intake: IV 10 0.9 10 Oral 120 Output: Urine 475 500 Other: Voiding Method Urinal Urinal # Voids 1 # Bowel Movements 0 Weight 85.729 kg 85.5 kg 11/22/20 06:47 11/22/20 06:47
[2020-11-23] MEDS: ASPIRIN 81 MG PO SCH (08:20)
[2020-11-23] MEDS: APIXABAN 2.5 MG TABLET PO SCH (08:20)
[2020-11-23] MEDS: ISOSORBIDE MONONITRATE ER 30 MG TAB.ER.24H PO SCH (08:21)
[2020-11-23] MEDS: CARBIDOPA-LEVODOPA 25-100 MG 1 EACH TAB PO SCH (08:21)
[2020-11-23] MEDS: SACUBITRIL/VALSARTAN 24 MG-26 MG TABLET PO SCH (08:21)
[2020-11-23] MEDS: CARBIDOPA-LEVODOPA ER 25-100MG 1 EACH TABLET.ER PO SCH (08:21)
[2020-11-23] MEDS: ATORVASTATIN 40 MG TAB PO SCH (08:21)
[2020-11-23] MEDS: DOXAZOSIN 2 MG TAB PO SCH (08:21)
[2020-11-23 11:50] VITALS: BP 80/53; PULSE 62; RESP 18; TEMP 97.9
--- NOTE | 2020-11-23 12:35 | P.PN ---
Subjective Progress Note Date: 11/23/20 HISTORY OF PRESENT ILLNESS: This is a 85-year-old male with a past medical history significant for paroxysmal atrial fibrillation on anticoagulation with Eliquis, congestive heart failure, coronary artery disease, Parkinson's disease, hypertension, and chronic kidney disease. Patient follows in the office with Dr. Alarcon. We have been asked to see the patient in consultation for hypotension. Patient examined at the bedside. It is noted that the patient was hospitalized in the beginning of October for a non-STEMI and medical management was recommended. Patient was recently admitted to the hospital from 11/14/2020 until 11/18/2020 secondary to bradycardia and CHF. Patient's medications were adjusted at that time. He was discharged home on Entresto and Coreg. Apparently the patient was previously taking nadolol, hydralazine, and lisinopril which were discontinued. Patient states he was at home and was feeling dizzy. His son took his blood pressure and he was found to be hypotensive with a systolic blood pressure in the 80s. Blood pressure within the patient came to the emergency room was in the 70s. He received 1500cc and fluid boluses in the emergency room. Patient's blood pressure has been stable since that time. Patient denies any dizziness or lightheadedness. He denies shortness of breath. He denies chest pain or pressure. EKG reveals sinus bradycardia with PVCs Chest xray findings are suggestive of congestive heart failure. Underlying atypical infection not excluded Laboratory data: WBC 6.1. Hemoglobin 13.1. Platelet count 148. Sodium 141. Potassium 4.7. BUN 62. Creatinine 1.46. Troponin 0.134. 0.108. 0.101. Current home cardiac medications include Entresto 24-26mg BID, carvedilol 1.5625 mg twice a day, Aldactone 25 mg daily, Imdur 30 mg daily, Lasix 40 mg daily, Lipitor 40 mg daily, aspirin 81 mg daily, and Eliquis 2.5 mg twice a day Most recent echocardiogram obtained in October 2020 revealed ejection fraction 40- 45%, basal inferior and basal inferoseptal LV wall hypokinesis, mid inferior LV wall hypokinesis, mid inferoseptal LV wall hypokinesis, mild mitral regurgitation, and mild tricuspid regurgitation Cardiac catheterization history: 2015 revealing mild to moderate disease of the LAD and circumflex. 11/23/2020 Patient examined this morning at the bedside. Patient denies chest pain or pressure. Denies shortness of breath. He denies any further episodes of dizziness or lightheadedness. Blood pressure this morning is 117/65. PHYSICAL EXAM: VITAL SIGNS: Reviewed. GENERAL: Well-developed in no acute distress. HEENT: Head is normocephalic. Pupils are equal, round. Sclerae anicteric. Mucous membranes of the mouth are moist. Neck supple. No JVD or thyromegaly LUNGS: Respirations even and unlabored. Lungs essentially clear to auscultation bilaterally. HEART: Regular rate and rhythm. S1 and S2 heard. ABDOMEN: Soft. Nondistended. Nontender. EXTREMITIES: Normal range of motion. No clubbing or cyanosis. Peripheral pulses intact. No lower extremity edema NEUROLOGIC: Awake and alert. Oriented x 3. ASSESSMENT: Hypotension, symptomatic with dizziness, resolved Elevated troponin, not suggestive of acute coronary syndrome, may be secondary to CKD Chronic systolic heart failure, EF 40% Coronary artery disease Paroxysmal atrial fibrillation on anticoagulation with Eliquis Hypertension Hyperlipidemia PLAN: Continue current cardiac medications Patient may be discharged home today from a cardiac standpoint We will sign off. Please reconsult if needed. Nurse practitioner note has been reviewed by physician. Signing provider agrees with the documented findings, assessment, and plan of care. Objective - Vital Signs Vital signs: Vital Signs Temp 97.9 F 11/23/20 11:49 Pulse 62 11/23/20 11:49 Resp 18 11/23/20 11:49 BP 80/53 11/23/20 11:49 Pulse Ox 100 11/23/20 11:49 Intake & Output 11/22/20 11/23/20 11/23/20 18:59 06:59 18:59 Intake Total 360 10 670 Output Total 1650 425 500 Balance -1290 -415 170 Weight 85.9 kg Intake: IV 10 10 0.9 10 Invasive Line 2 10 Oral 360 660 Output: Urine 1650 425 500 Other: Voiding Method Urinal Urinal Urinal # Bowel Movements 0 1 - Labs CBC & Chem 7: 11/22/20 06:47 11/22/20 06:47 Labs: Microbiology - Last 24 Hours (Table) 11/21/20 15:17 Blood Culture - Preliminary Blood No Growth after 24 hours 11/21/20 11:54 Blood Culture - Preliminary Blood No Growth after 24 hours
--- NOTE | 2020-11-23 13:27 | P.DS ---
Providers Date of admission: 11/21/20 14:08 Expected date of discharge: 11/23/20 Attending physician: Rafael Dailey MD Consults: 11/21/20 13:53 Consult Physician Routine Consulting Provider: Cira Alarcon Consult Reason/Comments: hypotension and elevated troponin, CHF exacerbation Do you want consulting provider notified?: Yes Primary care physician: Cira Ross MD Hospital Course: Bradycardia and Hypotension Chronic Systolic Heart Failure HTN HLD Parkinson's Disease CKD III Patient is a very pleasant 85-year-old male with a past medical history of atrial fibrillation on Eliquis, ischemic cardiomyopathy, chronic systolic heart failure with a preserved EF 40-45%, CAD, hypertension, hyperlipidemia, CKD stage III, BPH, and Parkinson's disease. Patient presented to our facility with a chief complaint of weakness and hypotension. Upon arrival to the emergency department patient's blood pressure was 70/51. He was given a fluid bolus of 1500 mL which resolved hypotension to BP of 119/76. EKG was completed showing sinus bradycardia at 54 bpm with occasional PVCs, no noted T-wave or ST abnormalities showing no signs of acute ischemia and unchanged from previous EKG. Chest x-ray indicated of congestive heart failure with patchy peripheral and interstitial airspace opacities suggestive of edema. Troponin elevated at 0.134. BNP normal findings at 842. Cardiology evaluated patient and adjusted cardiac medications. Upon discharge, I decided to remove his low dose of beta- bret given hx of bradycardia and hypotension, and to decrease his home lasix dose to 20mg daily from 40mg daily. All other home medications were resumed with no changes. I spent 35 minutes coordinating this complex discharge. Assessment: Gen: awake, alert HEENT: normocephalic, atraumatic, good hearing acuity, moist mucous membranes Resp: good air exchange, breathing comfortably with no accessory muscle use CVS: good distal perfusion x 4, GI: soft, NTTP, ND : no SPT, no CVAT, olivera catheter not present MSK: Trace pitting edema, no clubbing Neuro: non-focal, moving all extremities Psych: cooperative, euthymic mood Patient Condition at Discharge: Good Plan - Discharge Summary Discharge Rx Participant: No New Discharge Prescriptions: Continue Acetaminophen Tab [Tylenol] 1,000 mg PO Q6H PRN PRN Reason: Pain Doxazosin Mesylate [Cardura Xl] 4 mg PO DAILY Carbidopa-Levodopa 25-100 mg [Sinemet 25-100 mg] 1 tab PO BID Multivitamins, Thera [Multivitamin (formulary)] 1 tab PO DAILY Apixaban [Eliquis] 2.5 mg PO BID tablet Atorvastatin [Lipitor] 40 mg PO DAILY Carbidopa-Levodopa ER 25-100Mg [Sinemet CR 25-100 mg] 1 tab PO BID traZODone HCL 50 mg PO HS PRN PRN Reason: Insomnia Aspirin 81 mg PO DAILY chew Isosorbide Mononitrate ER [Imdur] 30 mg PO DAILY #30 tab.er.24h Spironolactone [Aldactone] 25 mg PO DAILY 30 Days #30 tab Sacubitril/Valsartan [Entresto 24 mg-26 mg Tablet] 1 tab PO BID Changed Furosemide [Lasix] 20 mg PO DAILY 30 Days #30 tab Discontinued carvediloL [Coreg] 1.5625 mg PO AC-BID Discharge Medication List Acetaminophen Tab [Tylenol] 1,000 mg PO Q6H PRN 10/04/13 [History] Doxazosin Mesylate [Cardura Xl] 4 mg PO DAILY 10/04/13 [History] Carbidopa-Levodopa 25-100 mg [Sinemet 25-100 mg] 1 tab PO BID 04/26/15 [History] Multivitamins, Thera [Multivitamin (formulary)] 1 tab PO DAILY 04/26/15 [History] Apixaban [Eliquis] 2.5 mg PO BID tablet 05/01/15 [Rx] Atorvastatin [Lipitor] 40 mg PO DAILY 08/01/15 [History] Carbidopa-Levodopa ER 25-100Mg [Sinemet CR 25-100 mg] 1 tab PO BID 10/25/20 [History] traZODone HCL 50 mg PO HS PRN 10/25/20 [History] Aspirin 81 mg PO DAILY chew 10/28/20 [Rx] Isosorbide Mononitrate ER [Imdur] 30 mg PO DAILY #30 tab.er.24h 10/28/20 [Rx] Spironolactone [Aldactone] 25 mg PO DAILY 30 Days #30 tab 11/17/20 [Rx] Sacubitril/Valsartan [Entresto 24 mg-26 mg Tablet] 1 tab PO BID 11/21/20 [History] Furosemide [Lasix] 20 mg PO DAILY 30 Days #30 tab 11/23/20 [Rx] Follow up Appointment(s)/Referral(s): Cira Ross MD [Primary Care Provider] - 1-2 days (Office closed for lunch. Please call to make an appointment.) Cira Alarcon MD [STAFF PHYSICIAN] - 12/01/20 10:00 am [facility], [NON-STAFF] - Patient Instructions/Handouts: Dehydration (DC), Hypotension (DC) Discharge Disposition: HOME WITH HOME HEALTH SERVICES
== END 2020-11-23 13:32 | disposition home health service (06) | DRG 315 ==
LOC: EC 10:39 → 3SCARD 14:08
PROVIDERS: ADMIT Internal Medicine; ATTEND Internal Medicine
DX: I95.9 Hypotension, unspecified (principal); I50.22 Chronic systolic (congestive) heart failure; I13.0 Hypertensive heart and chronic kidney disease with heart failure and stage 1 through stage 4 chronic kidney disease, or unspecified chronic kidney disease; I48.0 Paroxysmal atrial fibrillation; I25.10 Atherosclerotic heart disease of native coronary artery without angina pectoris; N40.0 Benign prostatic hyperplasia without lower urinary tract symptoms; Z96.652 Presence of left artificial knee joint; N18.30 Chronic kidney disease, stage 3 unspecified; E78.5 Hyperlipidemia, unspecified; G20 Parkinson's disease; E86.0 Dehydration; R00.1 Bradycardia, unspecified; D69.59 Other secondary thrombocytopenia; I25.5 Ischemic cardiomyopathy; I49.3 Ventricular premature depolarization; Z79.01 Long term (current) use of anticoagulants; Z79.82 Long term (current) use of aspirin; Z79.899 Other long term (current) drug therapy; Z87.891 Personal history of nicotine dependence
CPT/HCPCS: 36415; 71045; 80053; 81001; 82330; 83605; 83735; 83880; 84443; 84484; 85025; 85610; 85730; 87040; 93005; 94760; 96360; 96361; 99285

== ENCOUNTER 2020-11-28 10:19 | Observation (INO) | payer MEDICARE, BC ==
[2020-11-28] MEDS ORDERED: SODIUM CHLORIDE 0.9% 500 ML 500 ML IV STA (10:48)
--- NOTE | 2020-11-28 11:14 | ED ---
General Adult HPI - General Chief complaint: Neuro Symptoms/Deficit Stated complaint: Low BP/revisit Time Seen by Provider: 11/28/20 10:34 Source: patient, RN notes reviewed Mode of arrival: wheelchair Limitations: no limitations - History of Present Illness Initial comments: This an 85-year-old male presents emergency from chief complaint of hypotension. Patient son the room states that he checks his blood pressure daily because his been having issues with high blood pressure, low blood pressure and fluid overload. Patient states that they've been adjusting his medications states that his toenail blood pressure 70/40 at home he's been very lightheaded, near syncopal. Patient himself denies any chest pain, short breath, leg swelling, weight gain, abdominal pain. Patient did have physical therapy is morning, states he did take his medications this morning. - Related Data Home Medications Medication Instructions Recorded Confirmed Acetaminophen Tab [Tylenol] 1,000 mg PO Q6H PRN 10/04/13 11/28/20 Doxazosin Mesylate [Cardura Xl] 4 mg PO DAILY 10/04/13 11/28/20 Carbidopa-Levodopa 25-100 mg 1 tab PO BID 04/26/15 11/28/20 [Sinemet 25-100 mg] Multivitamins, Thera [Multivitamin 1 tab PO DAILY 04/26/15 11/28/20 (formulary)] Atorvastatin [Lipitor] 40 mg PO DAILY 08/01/15 11/28/20 Carbidopa-Levodopa ER 25-100Mg 1 tab PO BID 10/25/20 11/28/20 [Sinemet CR 25-100 mg] traZODone HCL 50 mg PO HS PRN 10/25/20 11/28/20 Sacubitril/Valsartan [Entresto 24 1 tab PO BID 11/21/20 11/28/20 mg-26 mg Tablet] Previous Rx's Medication Instructions Recorded Apixaban [Eliquis] 2.5 mg PO BID tablet 05/01/15 Aspirin 81 mg PO DAILY chew 10/28/20 Isosorbide Mononitrate ER [Imdur] 30 mg PO DAILY #30 tab.er.24h 10/28/20 Spironolactone [Aldactone] 25 mg PO DAILY 30 Days #30 tab 11/17/20 Furosemide [Lasix] 20 mg PO DAILY 30 Days #30 tab 11/23/20 Allergies Allergy/AdvReac Type Severity Reaction Status Date / Time No Known Allergies Allergy Verified 11/28/20 11:47 Review of Systems ROS Statement: Those systems with pertinent positive or pertinent negative responses have been documented in the HPI. ROS Other: All systems not noted in ROS Statement are negative. Past Medical History Past Medical History: Atrial Fibrillation, Hypertension, Neurologic Disorder, Prostate Disorder Additional Past Medical History / Comment(s): BPH, L knee pain, Parkinson's History of Any Multi-Drug Resistant Organisms: None Reported Past Surgical History: Joint Replacement, Tonsillectomy Additional Past Surgical History / Comment(s): Total L knee arthroplasty, colonoscopy 2008, bilateral cataract removal. Past Anesthesia/Blood Transfusion Reactions: No Reported Reaction Additional Past Anesthesia/Blood Transfusion Reaction / Comment(s): Pt states he has never received blood. Past Psychological History: No Psychological Hx Reported Smoking Status: Former smoker Past Alcohol Use History: None Reported Past Drug Use History: None Reported - Past Family History Father History Unknown: Yes Family Medical History: Unable to Obtain Additional Family Medical History / Comment(s): Pt did not grow up knowing father. Mother Family Medical History: No Reported History Additional Family Medical History / Comment(s): Mother was healthy. She at age 76yrs. General Exam Limitations: no limitations General appearance: alert, in no apparent distress Head exam: Present: atraumatic, normocephalic, normal inspection Eye exam: Present: normal appearance, PERRL, EOMI. Absent: scleral icterus, conjunctival injection, periorbital swelling Respiratory exam: Present: normal lung sounds bilaterally. Absent: respiratory distress, wheezes, rales, rhonchi, stridor Cardiovascular Exam: Present: tachycardia, irregular rhythm, normal heart sounds. Absent: regular rate, normal rhythm, systolic murmur, diastolic murmur, rubs, gallop, clicks GI/Abdominal exam: Present: soft, normal bowel sounds. Absent: distended, tenderness, guarding, rebound, rigid Neurological exam: Present: alert, oriented X3, CN II-XII intact Skin exam: Present: warm, dry, intact, normal color. Absent: rash Course Vital Signs 11/28/20 11/28/20 11/28/20 10:20 10:58 11:34 Temperature 97.2 F L Pulse Rate 88 80 Respiratory 18 20 Rate Blood Pressure 73/37 91/75 72/57 O2 Sat by Pulse 99 97 Oximetry 11/28/20 12:14 Temperature Pulse Rate Respiratory 65 H Rate Blood Pressure 94/72 O2 Sat by Pulse 96 Oximetry EKG Findings - EKG Comments: EKG Findings:: EKG formal at 10:35 A. fib with a rate of 85 RI 116/your T-System QTC 370/440 - EKG Results: EKG: interpreted by [facility] Medical Decision Making - Medical Decision Making Patient's had mild hypertension which is symptomatic from. Patient's troponin is elevated 0.140 he is anticoagulated, has had persistent elevated troponins will be repeated. Patient blood pressure mildly improved after fluid hydration. Patient case discussed with sound position recommend inpatient observation stay - Lab Data Result diagrams: 11/28/20 10:54 11/28/20 10:54 Lab Results 11/28/20 11/28/20 11/28/20 Range/Units 10:54 10:54 10:54 WBC 8.4 (3.8-10.6) k/uL RBC 3.88 L (4.30-5.90) m/uL Hgb 12.4 L (13.0-17.5) gm/dL Hct 36.8 L (39.0-53.0) % MCV 94.7 (80.0-100.0) fL MCH 32.0 (25.0-35.0) pg MCHC 33.8 (31.0-37.0) g/dL RDW 13.3 (11.5-15.5) % Plt Count 168 (150-450) k/uL MPV 7.8 Neutrophils % 87 % Lymphocytes % 7 % Monocytes % 5 % Eosinophils % 1 % Basophils % 0 % Neutrophils # 7.3 (1.3-7.7) k/uL Lymphocytes # 0.6 L (1.0-4.8) k/uL Monocytes # 0.4 (0-1.0) k/uL Eosinophils # 0.1 (0-0.7) k/uL Basophils # 0.0 (0-0.2) k/uL PT 10.5 (9.0-12.0) sec INR 1.0 (<1.2) APTT 24.9 (22.0-30.0) sec Sodium (137-145) mmol/L Potassium (3.5-5.1) mmol/L Chloride (98-107) mmol/L Carbon Dioxide (22-30) mmol/L Anion Gap mmol/L BUN (9-20) mg/dL Creatinine (0.66-1.25) mg/dL Est GFR (CKD-EPI)AfAm (>60 ml/min/1.73 sqM) Est GFR (CKD-EPI)NonAf (>60 ml/min/1.73 sqM) Glucose (74-99) mg/dL Plasma Lactic Acid [place] (0.7-2.0) mmol/L Calcium (8.4-10.2) mg/dL Magnesium (1.6-2.3) mg/dL Total Bilirubin (0.2-1.3) mg/dL AST (17-59) U/L ALT (4-49) U/L Alkaline Phosphatase (38-126) U/L Troponin I (0.000-0.034) ng/mL NT-Pro-B Natriuret Pep pg/mL Total Protein (6.3-8.2) g/dL Albumin (3.5-5.0) g/dL Urine Color Yellow Urine Appearance Clear (Clear) Urine pH 5.5 (5.0-8.0) Ur Specific [place] 1.008 (1.001-1.035) Urine Protein Negative (Negative) Urine Glucose (UA) Negative (Negative) Urine Ketones Negative (Negative) Urine Blood Negative (Negative) Urine Nitrite Negative (Negative) Urine Bilirubin Negative (Negative) Urine Urobilinogen <2.0 (<2.0) mg/dL Ur Leukocyte Esterase Negative (Negative) 11/28/20 11/28/20 11/28/20 Range/Units 10:54 10:54 10:54 WBC (3.8-10.6) k/uL RBC (4.30-5.90) m/uL Hgb (13.0-17.5) gm/dL Hct (39.0-53.0) % MCV (80.0-100.0) fL MCH (25.0-35.0) pg MCHC (31.0-37.0) g/dL RDW (11.5-15.5) % Plt Count (150-450) k/uL MPV Neutrophils % % Lymphocytes % % Monocytes % % Eosinophils % % Basophils % % Neutrophils # (1.3-7.7) k/uL Lymphocytes # (1.0-4.8) k/uL Monocytes # (0-1.0) k/uL Eosinophils # (0-0.7) k/uL Basophils # (0-0.2) k/uL PT (9.0-12.0) sec INR (<1.2) APTT (22.0-30.0) sec Sodium 137 (137-145) mmol/L Potassium 4.7 (3.5-5.1) mmol/L Chloride 103 (98-107) mmol/L Carbon Dioxide 27 (22-30) mmol/L Anion Gap 7 mmol/L BUN 37 H (9-20) mg/dL Creatinine 1.39 H (0.66-1.25) mg/dL Est GFR (CKD-EPI)AfAm 52 (>60 ml/min/1.73 sqM) Est GFR (CKD-EPI)NonAf 45 (>60 ml/min/1.73 sqM) Glucose 134 H (74-99) mg/dL Plasma Lactic Acid [place] 2.3 H* (0.7-2.0) mmol/L Calcium 9.7 (8.4-10.2) mg/dL Magnesium 1.9 (1.6-2.3) mg/dL Total Bilirubin 1.1 (0.2-1.3) mg/dL AST 35 (17-59) U/L ALT 11 (4-49) U/L Alkaline Phosphatase 51 (38-126) U/L Troponin I 0.140 H* (0.000-0.034) ng/mL NT-Pro-B Natriuret Pep pg/mL Total Protein 5.9 L (6.3-8.2) g/dL Albumin 3.5 (3.5-5.0) g/dL Urine Color Urine Appearance (Clear) Urine pH (5.0-8.0) Ur Specific [place] (1.001-1.035) Urine Protein (Negative) Urine Glucose (UA) (Negative) Urine Ketones (Negative) Urine Blood (Negative) Urine Nitrite (Negative) Urine Bilirubin (Negative) Urine Urobilinogen (<2.0) mg/dL Ur Leukocyte Esterase (Negative) 07/12/21 Range/Units 10:54 WBC (3.8-10.6) k/uL RBC (4.30-5.90) m/uL Hgb (13.0-17.5) gm/dL Hct (39.0-53.0) % MCV (80.0-100.0) fL MCH (25.0-35.0) pg MCHC (31.0-37.0) g/dL RDW (11.5-15.5) % Plt Count (150-450) k/uL MPV Neutrophils % % Lymphocytes % % Monocytes % % Eosinophils % % Basophils % % Neutrophils # (1.3-7.7) k/uL Lymphocytes # (1.0-4.8) k/uL Monocytes # (0-1.0) k/uL Eosinophils # (0-0.7) k/uL Basophils # (0-0.2) k/uL PT (9.0-12.0) sec INR (<1.2) APTT (22.0-30.0) sec Sodium (137-145) mmol/L Potassium (3.5-5.1) mmol/L Chloride (98-107) mmol/L Carbon Dioxide (22-30) mmol/L Anion Gap mmol/L BUN (9-20) mg/dL Creatinine (0.66-1.25) mg/dL Est GFR (CKD-EPI)AfAm (>60 ml/min/1.73 sqM) Est GFR (CKD-EPI)NonAf (>60 ml/min/1.73 sqM) Glucose (74-99) mg/dL Plasma Lactic Acid [place] (0.7-2.0) mmol/L Calcium (8.4-10.2) mg/dL Magnesium (1.6-2.3) mg/dL Total Bilirubin (0.2-1.3) mg/dL AST (17-59) U/L ALT (4-49) U/L Alkaline Phosphatase (38-126) U/L Troponin I (0.000-0.034) ng/mL NT-Pro-B Natriuret Pep 1700 pg/mL Total Protein (6.3-8.2) g/dL Albumin (3.5-5.0) g/dL Urine Color Urine Appearance (Clear) Urine pH (5.0-8.0) Ur Specific [place] (1.001-1.035) Urine Protein (Negative) Urine Glucose (UA) (Negative) Urine Ketones (Negative) Urine Blood (Negative) Urine Nitrite (Negative) Urine Bilirubin (Negative) Urine Urobilinogen (<2.0) mg/dL Ur Leukocyte Esterase (Negative) Disposition Clinical Impression: Hypotension, A-fib, Dehydration Disposition: ADMITTED IP TO THIS HOSP Condition: Fair Referrals: Cira Ross MD [Primary Care Provider] - 1-2 days
[2020-11-28 11:21] LABS: Basophils % (A) 0 %; Eosinophils # (A) 0.1 k/uL (0-0.7); Eosinophils % (A) 1 %; HCT 36.8 % (39.0-53.0); HGB 12.4 gm/dL (13.0-17.5); Lymphocytes # (A) 0.6 k/uL (1.0-4.8); Lymphocytes % (A) 7 %; MCHC 33.8 g/dL (31.0-37.0); MCV 94.7 fL (80.0-100.0); Mean Platelet Volume 7.8; Monocytes # (A) 0.4 k/uL (0-1.0); Monocytes % (A) 5 %; Neutrophils # (A) 7.3 k/uL (1.3-7.7); Neutrophils % (A) 87 %; Platelet Count 168 k/uL (150-450); RBC 3.88 m/uL (4.30-5.90); RDW 13.3 % (11.5-15.5); WBC 8.4 k/uL (3.8-10.6)
[2020-11-28 11:32] LABS: Albumin 3.5 g/dL (3.5-5.0); Calcium 9.7 mg/dL (8.4-10.2); Magnesium 1.9 mg/dL (1.6-2.3); Partial Thromboplastin Time 24.9 sec (22.0-30.0); Potassium 4.7 mmol/L (3.5-5.1); Prothrombin Time 10.5 sec (9.0-12.0); Total Bilirubin 1.1 mg/dL (0.2-1.3); Total Protein 5.9 g/dL (6.3-8.2)
--- NOTE | 2020-11-28 11:43 | XR ---
EXAMINATION TYPE: XR chest 2V DATE OF EXAM: 11/28/2020 COMPARISON: 11/21/2020 HISTORY: Weakness TECHNIQUE: Frontal and lateral views of the chest are obtained. FINDINGS: There is no focal air space opacity, pleural effusion, or pneumothorax seen. The cardiac silhouette size is unchanged. IMPRESSION: No acute cardiopulmonary process.
[2020-11-28] MEDS ORDERED: SODIUM CHLORIDE 0.9% 500 ML 500 ML IV ONE (12:20)
[2020-11-28 12:49] LABS: Appearance,Urine Clear (Clear); Bilirubin,Urine Negative (Negative); Blood,Urine Negative (Negative); Color,Urine Yellow; Glucose,Urine (UA) Negative (Negative); Ketones,Urine Negative (Negative); Leukocyte Esterase,Urine Negative (Negative); Nitrite,Urine Negative (Negative); PH, Urine 5.5 (5.0-8.0); Protein,Urine Negative (Negative); Specific Gravity,Urine 1.008 (1.001-1.035); Urobilinogen,Urine <2.0 mg/dL (<2.0)
[2020-11-28] MEDS ORDERED: NITROGLYCERIN SL TABS 0.4 MG TAB SUBLINGUAL PRN (13:35)
[2020-11-28 13:41] VITALS: RESP 16
[2020-11-28] MEDS ORDERED: ACETAMINOPHEN TAB 500 MG TAB PO PRN (14:24)
[2020-11-28] MEDS ORDERED: traZODone HCL 50 MG TAB PO PRN (14:24)
--- NOTE | 2020-11-28 14:29 | P.HPIM ---
History of Present Illness H&P Date: 11/28/20 This is a 85-year-old male with past medical history noted below significant for ischemic cardiomyopathy and known EF of 40-45% and chronic atrial fibrillation on anticoagulation with Eliquis who was brought into the emergency room by his son secondary to hypotension. Patient told me that his son usually checks on him every morning to monitor his vital signs and this morning his blood pressure was 70/40. Patient said that he was feeling slightly dizzy and had some blurred vision. Patient was brought into the emergency room and was confirmed to have hypotension on presentation. There is no evidence of sepsis. His lactic acid was slightly elevated secondary to hypoperfusion. Patient received IV fluid bolus and his blood pressure improved significantly. He was sitting at the side of the bed at the time of my evaluation. He denies any specific complaints or concerns. Patient has similar presentations to the hospital in the recent past. He had extensive workup. He admits not to drink enough fluid throughout the day. Review of Systems Review of system: 14 points review of systems were obtained and were negative except to what were mentioned in the HPI. Past Medical History Past Medical History: Atrial Fibrillation, Hypertension, Neurologic Disorder, Prostate Disorder Additional Past Medical History / Comment(s): BPH, L knee pain, Parkinson's History of Any Multi-Drug Resistant Organisms: None Reported Past Surgical History: Joint Replacement, Tonsillectomy Additional Past Surgical History / Comment(s): Total L knee arthroplasty, colonoscopy 2008, bilateral cataract removal. Past Anesthesia/Blood Transfusion Reactions: No Reported Reaction Additional Past Anesthesia/Blood Transfusion Reaction / Comment(s): Pt states he has never received blood. Past Psychological History: No Psychological Hx Reported Smoking Status: Former smoker Past Alcohol Use History: None Reported Past Drug Use History: None Reported - Past Family History Father History Unknown: Yes Family Medical History: Unable to Obtain Additional Family Medical History / Comment(s): Pt did not grow up knowing father. Mother Family Medical History: No Reported History Additional Family Medical History / Comment(s): Mother was healthy. She at age 76yrs. Medications and Allergies Home Medications Medication Instructions Recorded Confirmed Type Acetaminophen Tab [Tylenol] 1,000 mg PO Q6H PRN 10/04/13 11/28/20 History Doxazosin Mesylate [Cardura Xl] 4 mg PO DAILY 10/04/13 11/28/20 History Carbidopa-Levodopa 25-100 mg 1 tab PO BID 04/26/15 11/28/20 History [Sinemet 25-100 mg] Multivitamins, Thera [Multivitamin 1 tab PO DAILY 04/26/15 11/28/20 History (formulary)] Apixaban [Eliquis] 2.5 mg PO BID tablet 05/01/15 11/28/20 Rx Atorvastatin [Lipitor] 40 mg PO DAILY 08/01/15 11/28/20 History Carbidopa-Levodopa ER 25-100Mg 1 tab PO BID 10/25/20 11/28/20 History [Sinemet CR 25-100 mg] traZODone HCL 50 mg PO HS PRN 10/25/20 11/28/20 History Aspirin 81 mg PO DAILY chew 10/28/20 11/28/20 Rx Isosorbide Mononitrate ER [Imdur] 30 mg PO DAILY #30 tab.er.24h 10/28/20 11/28/20 Rx Spironolactone [Aldactone] 25 mg PO DAILY 30 Days #30 tab 11/17/20 11/28/20 Rx Sacubitril/Valsartan [Entresto 24 1 tab PO BID 11/21/20 11/28/20 History mg-26 mg Tablet] Furosemide [Lasix] 20 mg PO DAILY 30 Days #30 tab 11/23/20 11/28/20 Rx Allergies Allergy/AdvReac Type Severity Reaction Status Date / Time No Known Allergies Allergy Verified 11/28/20 11:47 Physical Exam Vitals: Vital Signs Temp Pulse Resp BP Pulse Ox 11/28/20 13:38 70 16 105/68 98 11/28/20 12:14 65 H 94/72 96 11/28/20 11:34 72/57 11/28/20 10:58 80 20 91/75 97 11/28/20 10:20 97.2 F L 88 18 73/37 99 Intake and Output 11/27/20 11/28/20 11/28/20 22:59 06:59 14:59 Other: Weight 85.729 kg General: The patient is awake and alert, in no distress Eye: there is normal conjunctiva bilaterally. Neck: The neck is supple, there is no JVD. Cardiovascular: Normal S1-S2, no S3-S4, no murmurs. Respiratory: Lungs clear to auscultation bilaterally Gastrointestinal: Abdomen is soft, nontender Musculoskeletal: There is no pedal edema. Neurological:. Speech is normal. Skin: Skin is warm and dry Results CBC & Chem 7: 11/28/20 10:54 11/28/20 10:54 Labs: Abnormal Lab Results - Last 24 Hours (Table) 11/28/20 11/28/20 11/28/20 Range/Units 10:54 10:54 10:54 RBC 3.88 L (4.30-5.90) m/uL Hgb 12.4 L (13.0-17.5) gm/dL Hct 36.8 L (39.0-53.0) % Lymphocytes # 0.6 L (1.0-4.8) k/uL BUN 37 H (9-20) mg/dL Creatinine 1.39 H (0.66-1.25) mg/dL Glucose 134 H (74-99) mg/dL Plasma Lactic Acid [place] 2.3 H* (0.7-2.0) mmol/L Troponin I (0.000-0.034) ng/mL Total Protein 5.9 L (6.3-8.2) g/dL 11/28/20 Range/Units 10:54 RBC (4.30-5.90) m/uL Hgb (13.0-17.5) gm/dL Hct (39.0-53.0) % Lymphocytes # (1.0-4.8) k/uL BUN (9-20) mg/dL Creatinine (0.66-1.25) mg/dL Glucose (74-99) mg/dL Plasma Lactic Acid [place] (0.7-2.0) mmol/L Troponin I 0.140 H* (0.000-0.034) ng/mL Total Protein (6.3-8.2) g/dL Assessment and Plan Assessment: 1. Hypotension: Probably secondary to polypharmacy and dehydration. I would discontinue home dose of spironolactone and Imdur. Continue home regimen otherwise. Patient received IV fluid bolus in the ER. We will avoid further IV fluid hydration secondary to underlying heart failure. Encouraged oral hydra tion otherwise. Continue telemetry monitoring. Check orthostatic blood pressure every shift. 2. Ischemic cardiomyopathy underlying chronic heart failure not in exacerbation. Estimated EF on last echocardiogram 40-45%. 3. Chronic atrial fibrillation on anticoagulation with Eliquis 4. Underlying Parkinson's disease
[2020-11-28] MEDS: APIXABAN 2.5 MG TABLET PO SCH (20:36)
[2020-11-28] MEDS: SACUBITRIL/VALSARTAN 24 MG-26 MG TABLET PO SCH (20:36)
[2020-11-28] MEDS: CARBIDOPA-LEVODOPA ER 25-100MG 1 EACH TABLET.ER PO SCH (20:36)
[2020-11-28] MEDS: CARBIDOPA-LEVODOPA 25-100 MG 1 EACH TAB PO SCH (20:36)
[2020-11-29 08:07] VITALS: TEMP 98.1
[2020-11-29] MEDS: APIXABAN 2.5 MG TABLET PO SCH (08:10)
[2020-11-29] MEDS: CARBIDOPA-LEVODOPA ER 25-100MG 1 EACH TABLET.ER PO SCH (08:11)
[2020-11-29] MEDS: CARBIDOPA-LEVODOPA 25-100 MG 1 EACH TAB PO SCH (08:11)
[2020-11-29] MEDS: SACUBITRIL/VALSARTAN 24 MG-26 MG TABLET PO SCH (08:12)
[2020-11-29] MEDS ORDERED: FUROSEMIDE 20 MG TAB PO SCH (09:00)
[2020-11-29] MEDS ORDERED: ATORVASTATIN 40 MG TAB PO SCH (09:00)
[2020-11-29] MEDS ORDERED: DOXAZOSIN 2 MG TAB PO SCH (09:00)
[2020-11-29] MEDS ORDERED: MULTIVITAMINS, THERA 1 EACH TAB PO SCH (09:00)
[2020-11-29] MEDS ORDERED: ASPIRIN 81 MG PO SCH (09:00)
[2020-11-29 11:01] VITALS: BP 130/85
--- NOTE | 2020-11-29 11:10 | P.DS ---
Providers Date of admission: 11/28/20 13:20 Expected date of discharge: 11/29/20 Attending physician: Timo Ponce Primary care physician: Cira Ross MD Hospital Course: This is a 85-year-old male with past medical history noted below significant for ischemic cardiomyopathy and known EF of 40-45% and chronic atrial fibrillation on anticoagulation with Eliquis who was brought into the emergency room by his son secondary to hypotension. Patient told me that his son usually checks on him every morning to monitor his vital signs and this morning his blood pressure was 70/40. Patient said that he was feeling slightly dizzy and had some blurred vision. Patient was brought into the emergency room and was confirmed to have hypotension on presentation. There is no evidence of sepsis. His lactic acid was slightly elevated secondary to hypoperfusion. Patient received IV fluid bolus and his blood pressure improved significantly. He was sitting at the side of the bed at the time of my evaluation. He denies any specific complaints or concerns. Patient has similar presentations to the hospital in the recent past. He had extensive workup. He admits not to drink enough fluid throughout the day. 1. Hypotension: Probably secondary to polypharmacy and dehydration. There is also a component of autonomic dysfunction possibly secondary to underlying Parkinson's disease. I would discontinue home dose of spironolactone and Imdur. Continue home regimen otherwise. Patient received IV fluid bolus in the ER. We will avoid further IV fluid hydration secondary to underlying heart failure. Encouraged oral hydration otherwise. 2. Ischemic cardiomyopathy underlying chronic heart failure not in exacerbation. Estimated EF on last echocardiogram 40-45%. 3. Chronic atrial fibrillation on anticoagulation with Eliquis 4. Underlying Parkinson's disease Patient was seen, evaluated, and examined by me on the day of discharge. Orthostatic blood pressure checked and negative. Patient did not have any dizziness or lightheadedness getting out of bed. He had a brief episode of tachycardia for a few seconds when he got out of that resolved quickly. Patient otherwise is doing well. His lungs are clear to auscultation bilaterally. He will be discharged home in a stable condition. He will follow-up with his customer service and sales consultant in the office as directed. Patient Condition at Discharge: Fair Plan - Discharge Summary New Discharge Prescriptions: Continue Acetaminophen Tab [Tylenol] 1,000 mg PO Q6H PRN PRN Reason: Pain Doxazosin Mesylate [Cardura Xl] 4 mg PO DAILY Carbidopa-Levodopa 25-100 mg [Sinemet 25-100 mg] 1 tab PO BID Multivitamins, Thera [Multivitamin (formulary)] 1 tab PO DAILY Apixaban [Eliquis] 2.5 mg PO BID tablet Atorvastatin [Lipitor] 40 mg PO DAILY Carbidopa-Levodopa ER 25-100Mg [Sinemet CR 25-100 mg] 1 tab PO BID traZODone HCL 50 mg PO HS PRN PRN Reason: Insomnia Aspirin 81 mg PO DAILY chew Sacubitril/Valsartan [Entresto 24 mg-26 mg Tablet] 1 tab PO BID Furosemide [Lasix] 20 mg PO DAILY 30 Days #30 tab Discontinued Isosorbide Mononitrate ER [Imdur] 30 mg PO DAILY #30 tab.er.24h Spironolactone [Aldactone] 25 mg PO DAILY 30 Days #30 tab Discharge Medication List Acetaminophen Tab [Tylenol] 1,000 mg PO Q6H PRN 10/04/13 [History] Doxazosin Mesylate [Cardura Xl] 4 mg PO DAILY 10/04/13 [History] Carbidopa-Levodopa 25-100 mg [Sinemet 25-100 mg] 1 tab PO BID 04/26/15 [History] Multivitamins, Thera [Multivitamin (formulary)] 1 tab PO DAILY 04/26/15 [History] Apixaban [Eliquis] 2.5 mg PO BID tablet 05/01/15 [Rx] Atorvastatin [Lipitor] 40 mg PO DAILY 08/01/15 [History] Carbidopa-Levodopa ER 25-100Mg [Sinemet CR 25-100 mg] 1 tab PO BID 10/25/20 [History] traZODone HCL 50 mg PO HS PRN 10/25/20 [History] Aspirin 81 mg PO DAILY chew 10/28/20 [Rx] Sacubitril/Valsartan [Entresto 24 mg-26 mg Tablet] 1 tab PO BID 11/21/20 [History] Furosemide [Lasix] 20 mg PO DAILY 30 Days #30 tab 11/23/20 [Rx] Follow up Appointment(s)/Referral(s): Cira Ross MD [Primary Care Provider] - 1-2 days Discharge Disposition: HOME SELF-CARE
[2020-11-29 16:57] VITALS: PULSE 76
== END 2020-11-29 16:50 | disposition home or self-care (01) ==
LOC: EC 10:19 → 3SCARD 13:20
PROVIDERS: ADMIT Internal Medicine; ATTEND Internal Medicine
DX: I95.9 Hypotension, unspecified (principal); E86.0 Dehydration; I11.0 Hypertensive heart disease with heart failure; I50.9 Heart failure, unspecified; I25.5 Ischemic cardiomyopathy; I48.20 Chronic atrial fibrillation, unspecified; G20 Parkinson's disease; G90.9 Disorder of the autonomic nervous system, unspecified; N40.0 Benign prostatic hyperplasia without lower urinary tract symptoms; R79.89 Other specified abnormal findings of blood chemistry; Z79.01 Long term (current) use of anticoagulants; Z79.82 Long term (current) use of aspirin; Z79.899 Other long term (current) drug therapy; Z96.652 Presence of left artificial knee joint; Z87.891 Personal history of nicotine dependence; Z98.42 Cataract extraction status, left eye; Z98.41 Cataract extraction status, right eye; Z98.890 Other specified postprocedural states
CPT/HCPCS: 96360; 96361; 99285; 36415; 93005; 83880; 80053; 83605; 83735; 84484; 85025; 85610; 85730; 81003; 71046; G0378 ×2

== ENCOUNTER 2020-12-09 09:59 | Inpatient (IN) | payer MEDICARE, BC ==
[2020-12-09] MEDS ORDERED: SODIUM CHLORIDE 0.9% 500 ML 500 ML IV ONE ×3 (10:18→11:49)
[2020-12-09 10:20] LABS: Basophils % (A) 0 %; Eosinophils % (A) 0 %; HGB 12.9 gm/dL (13.0-17.5); Lymphocytes % (A) 6 %; MCH 31.8 pg (25.0-35.0); MCHC 32.1 g/dL (31.0-37.0); MCV 99.1 fL (80.0-100.0); Mean Platelet Volume 8.1; Monocytes % (A) 3 %; Neutrophils % (A) 90 %; Platelet Count 189 k/uL (150-450); RBC 4.04 m/uL (4.30-5.90); RDW 13.5 % (11.5-15.5); WBC 10.7 k/uL (3.8-10.6)
[2020-12-09 10:21] LABS: Lymphocytes # (A) 0.6 k/uL (1.0-4.8); Monocytes # (A) 0.3 k/uL (0-1.0); Neutrophils # (A) 9.6 k/uL (1.3-7.7)
--- NOTE | 2020-12-09 10:22 | ED ---
General Adult HPI - General Chief complaint: Weakness Stated complaint: Hypotensive Time Seen by Provider: 12/09/20 10:00 Source: patient, RN notes reviewed, old records reviewed Mode of arrival: EMS Limitations: no limitations - History of Present Illness Initial comments: 85-year-old male history of atrial fibrillation presents for evaluation of light headedness, hypotension. Patient had been at home, his son does monitor vital signs. Upon awakening he was somewhat confused, he had a elevated heart rate and was hypotensive. EMS was called. Patient did have some lightheadedness, no chest pain, no dyspnea. No abdominal pain nausea vomiting or fever. Patient is in A. fib with RVR, initial blood pressure in the hospital is 70 systolic. - Related Data Home Medications Medication Instructions Recorded Confirmed Acetaminophen Tab [Tylenol] 1,000 mg PO Q6H PRN 10/04/13 12/09/20 Carbidopa-Levodopa 25-100 mg 1 tab PO BID 04/26/15 12/09/20 [Sinemet 25-100 mg] Multivitamins, Thera [Multivitamin 1 tab PO DAILY 04/26/15 12/09/20 (formulary)] Atorvastatin [Lipitor] 40 mg PO DAILY 08/01/15 12/09/20 Carbidopa-Levodopa ER 25-100Mg 1 tab PO BID 10/25/20 12/09/20 [Sinemet CR 25-100 mg] traZODone HCL 50 mg PO HS PRN 10/25/20 12/09/20 Sacubitril/Valsartan [Entresto 24 1 tab PO BID 11/21/20 12/09/20 mg-26 mg Tablet] Tamsulosin HCl [Flomax] 0.4 mg PO DAILY 12/09/20 12/09/20 Previous Rx's Medication Instructions Recorded Apixaban [Eliquis] 2.5 mg PO BID tablet 05/01/15 Aspirin 81 mg PO DAILY chew 10/28/20 Furosemide [Lasix] 20 mg PO DAILY 30 Days #30 tab 11/23/20 Allergies Allergy/AdvReac Type Severity Reaction Status Date / Time No Known Allergies Allergy Verified 12/09/20 10:57 Review of Systems ROS Statement: Those systems with pertinent positive or pertinent negative responses have been documented in the HPI. ROS Other: All systems not noted in ROS Statement are negative. Past Medical History Past Medical History: Atrial Fibrillation, Hypertension, Neurologic Disorder, Prostate Disorder Additional Past Medical History / Comment(s): BPH, L knee pain, Parkinson's History of Any Multi-Drug Resistant Organisms: None Reported Past Surgical History: Joint Replacement, Tonsillectomy Additional Past Surgical History / Comment(s): Total L knee arthroplasty, colonoscopy 2008, bilateral cataract removal. Past Anesthesia/Blood Transfusion Reactions: No Reported Reaction Additional Past Anesthesia/Blood Transfusion Reaction / Comment(s): Pt states he has never received blood. Past Psychological History: No Psychological Hx Reported Smoking Status: Former smoker Past Alcohol Use History: None Reported Past Drug Use History: None Reported - Past Family History Father History Unknown: Yes Family Medical History: Unable to Obtain Additional Family Medical History / Comment(s): Pt did not grow up knowing father. Mother Family Medical History: No Reported History Additional Family Medical History / Comment(s): Mother was healthy. She at age 76yrs. General Exam Limitations: no limitations General appearance: alert Head exam: Present: atraumatic, normocephalic Eye exam: Present: normal appearance, PERRL ENT exam: Present: mucous membranes dry Neck exam: Present: normal inspection Respiratory exam: Present: normal lung sounds bilaterally. Absent: respiratory distress, wheezes Cardiovascular Exam: Present: tachycardia, irregular rhythm GI/Abdominal exam: Present: soft. Absent: distended, tenderness, guarding Extremities exam: Present: pedal edema (Trace) Neurological exam: Present: alert, oriented X3, CN II-XII intact. Absent: motor sensory deficit Psychiatric exam: Present: normal affect, normal mood Skin exam: Present: warm, dry, intact. Absent: cyanosis, diaphoretic Course Vital Signs 12/09/20 12/09/20 12/09/20 10:00 10:06 10:15 Temperature 97.4 F L Pulse Rate 135 H 131 H 125 H Respiratory 20 13 16 Rate Blood Pressure 105/86 77/40 80/30 O2 Sat by Pulse 93 L 98 98 Oximetry 12/09/20 12/09/20 12/09/20 11:00 11:20 11:40 Temperature Pulse Rate 122 H 146 H 129 H Respiratory 16 16 16 Rate Blood Pressure 71/50 78/62 105/59 O2 Sat by Pulse 97 97 97 Oximetry EKG Findings - EKG Comments: EKG Findings:: EKG: H fibrillation with RVR, left axis, rate of 141, QRS duration 118, QTC [address] segment elevation, similar QRS morphology compared to EKG on November 28. Medical Decision Making - Medical Decision Making 85-year-old male had presented with atrial fibrillation and hypotension. He is given fluid resuscitation, lungs are clear on exam, the chest x-ray does not show caryn pulmonary edema. I was cautious with rehydrate in this patient with known CHF. Blood pressure does have some transient improvement in the 80s however throughout his ER stay blood pressure is predominantly in the 70s with a heart rate around 140. I did discuss case with Dr. Agnes ledesma for cardiology regarding cardioversion. This procedure was planned, patient was attached to the defibrillator Versed was given however blood pressure did improve to 105 systolic and the patient did not require cardioversion. I discussed case with Dr. Obregon, patient will be admitted. He will be admitted to the telemetry unit. I discussed case with Dr. Jeronimo ledesma for pulmonology and intensive care and is aware of the patient but believes he is stable for telemetry, stepdown I agree with this. - Lab Data Result diagrams: 12/09/20 10:00 12/09/20 10:00 Lab Results 12/09/20 12/09/20 12/09/20 Range/Units 10:00 10:00 10:00 WBC 10.7 H (3.8-10.6) k/uL RBC 4.04 L (4.30-5.90) m/uL Hgb 12.9 L (13.0-17.5) gm/dL Hct 40.0 (39.0-53.0) % MCV 99.1 (80.0-100.0) fL MCH 31.8 (25.0-35.0) pg MCHC 32.1 (31.0-37.0) g/dL RDW 13.5 (11.5-15.5) % Plt Count 189 (150-450) k/uL MPV 8.1 Neutrophils % 90 % Lymphocytes % 6 % Monocytes % 3 % Eosinophils % 0 % Basophils % 0 % Neutrophils # 9.6 H (1.3-7.7) k/uL Lymphocytes # 0.6 L (1.0-4.8) k/uL Monocytes # 0.3 (0-1.0) k/uL Eosinophils # 0.0 (0-0.7) k/uL Basophils # 0.0 (0-0.2) k/uL PT 10.3 (9.0-12.0) sec INR 1.0 (<1.2) APTT 20.4 L (22.0-30.0) sec Sodium 139 (137-145) mmol/L Potassium 4.1 (3.5-5.1) mmol/L Chloride 105 (98-107) mmol/L Carbon Dioxide 21 L (22-30) mmol/L Anion Gap 13 mmol/L BUN 30 H (9-20) mg/dL Creatinine 1.42 H (0.66-1.25) mg/dL Est GFR (CKD-EPI)AfAm 51 (>60 ml/min/1.73 sqM) Est GFR (CKD-EPI)NonAf 44 (>60 ml/min/1.73 sqM) Glucose 151 H (74-99) mg/dL Calcium 9.5 (8.4-10.2) mg/dL Magnesium 1.8 (1.6-2.3) mg/dL Total Bilirubin 1.0 (0.2-1.3) mg/dL AST 34 (17-59) U/L ALT 14 (4-49) U/L Alkaline Phosphatase 56 (38-126) U/L Troponin I (0.000-0.034) ng/mL NT-Pro-B Natriuret Pep pg/mL Total Protein 5.9 L (6.3-8.2) g/dL Albumin 3.7 (3.5-5.0) g/dL 12/09/20 12/09/20 Range/Units 10:00 10:00 WBC (3.8-10.6) k/uL RBC (4.30-5.90) m/uL Hgb (13.0-17.5) gm/dL Hct (39.0-53.0) % MCV (80.0-100.0) fL MCH (25.0-35.0) pg MCHC (31.0-37.0) g/dL RDW (11.5-15.5) % Plt Count (150-450) k/uL MPV Neutrophils % % Lymphocytes % % Monocytes % % Eosinophils % % Basophils % % Neutrophils # (1.3-7.7) k/uL Lymphocytes # (1.0-4.8) k/uL Monocytes # (0-1.0) k/uL Eosinophils # (0-0.7) k/uL Basophils # (0-0.2) k/uL PT (9.0-12.0) sec INR (<1.2) APTT (22.0-30.0) sec Sodium (137-145) mmol/L Potassium (3.5-5.1) mmol/L Chloride (98-107) mmol/L Carbon Dioxide (22-30) mmol/L Anion Gap mmol/L BUN (9-20) mg/dL Creatinine (0.66-1.25) mg/dL Est GFR (CKD-EPI)AfAm (>60 ml/min/1.73 sqM) Est GFR (CKD-EPI)NonAf (>60 ml/min/1.73 sqM) Glucose (74-99) mg/dL Calcium (8.4-10.2) mg/dL Magnesium (1.6-2.3) mg/dL Total Bilirubin (0.2-1.3) mg/dL AST (17-59) U/L ALT (4-49) U/L Alkaline Phosphatase (38-126) U/L Troponin I 0.148 H* (0.000-0.034) ng/mL NT-Pro-B Natriuret Pep 1570 pg/mL Total Protein (6.3-8.2) g/dL Albumin (3.5-5.0) g/dL Critical Care Time Critical Care Time: Yes Total Critical Care Time: 35 Disposition Clinical Impression: Atrial fibrillation with RVR, Hypotension, Troponin level elevated Disposition: ADMITTED IP TO THIS [facility] Condition: Serious Is patient prescribed a controlled substance at d/c from ED?: No Referrals: Cira Ross MD [Primary Care Provider] - 1-2 days Decision to Admit Reason: Admit from EC Decision Date: 12/09/20 Decision Time: 12:29
--- NOTE | 2020-12-09 10:26 | XR ---
EXAMINATION TYPE: XR chest 1V portable DATE OF EXAM: 12/09/2020 COMPARISON: 11/28/2020 HISTORY: chest pain, dysrhythmia TECHNIQUE: Single frontal view of the chest is obtained. FINDINGS: There is no focal air space opacity, pleural effusion, or pneumothorax seen. The cardiac silhouette size is unchanged. IMPRESSION: No acute process.
[2020-12-09 10:32] LABS: Albumin 3.7 g/dL (3.5-5.0); Calcium 9.5 mg/dL (8.4-10.2); Magnesium 1.8 mg/dL (1.6-2.3); Potassium 4.1 mmol/L (3.5-5.1); Total Protein 5.9 g/dL (6.3-8.2)
[2020-12-09 10:41] LABS: Prothrombin Time 10.3 sec (9.0-12.0)
[2020-12-09 11:07] LABS: Partial Thromboplastin Time 20.4 sec (22.0-30.0)
[2020-12-09] MEDS: SODIUM CHLORIDE 0.9% 1,000 ML IV SCH ×2 (11:26→19:49)
[2020-12-09] MEDS ORDERED: MIDAZOLAM 1 MG/ML 5 ML VIAL IV STA (11:35)
[2020-12-09] MEDS ORDERED: DILTIAZEM 125 MG in SODIUM CHLORIDE 0.9% 100 ML IV SCH (12:15)
[2020-12-09] MEDS ORDERED: ACETAMINOPHEN TAB 325 MG TAB PO PRN (12:24)
[2020-12-09] MEDS ORDERED: NALOXONE 0.4 MG/ML 1 ML VIAL IV PRN (12:24)
[2020-12-09] MEDS: METOPROLOL TARTRATE 25 MG TAB PO SCH ×2 (14:47→20:10)
--- NOTE | 2020-12-09 15:00 | P.HPIM ---
History of Present Illness H&P Date: 12/09/20 Chief Complaint: change in mental status 85-year-old male with a past medical history significant for paroxysmal atrial fibrillation on anticoagulation with Eliquis, congestive heart failure, coronary artery disease, Parkinson's disease, hypertension, and chronic kidney disease. Patient has been hospitalized multiple times over the past several months due to bradycardia/hypotension and congestive heart failure issues. He also had an admission for non-STEMI and medical management was recommended. This morning patient was found by his son slumped over on the kitchen table, minimally responsive. He stated that when EMS arrived his blood pressure was 50/30. Patient stated that he had some lightheadedness and chest heaviness during that time. No significant shortness of breath. No palpitations. No dizziness. In the emergency room his sbp was in the 70s. He was found to be in atrial fibrillation with rapid ventricular response in the 140s. He received 2-3L fluid boluses and bp came up, his heart rate came down to the 70s as well. He is currently feeling much better. He'll be admitted to observation for further evaluation and management per cardiology. Review of Systems Complete review of system performed, pertinent positives per HPI, otherwise negative Past Medical History Past Medical History: Atrial Fibrillation, Hypertension, Neurologic Disorder, Prostate Disorder Additional Past Medical History / Comment(s): BPH, L knee pain, Parkinson's History of Any Multi-Drug Resistant Organisms: None Reported Past Surgical History: Joint Replacement, Tonsillectomy Additional Past Surgical History / Comment(s): Total L knee arthroplasty, colonoscopy 2008, bilateral cataract removal. Past Anesthesia/Blood Transfusion Reactions: No Reported Reaction Additional Past Anesthesia/Blood Transfusion Reaction / Comment(s): Pt states he has never received blood. Past Psychological History: No Psychological Hx Reported Smoking Status: Former smoker Past Alcohol Use History: None Reported Past Drug Use History: None Reported - Past Family History Father History Unknown: Yes Family Medical History: Unable to Obtain Additional Family Medical History / Comment(s): Pt did not grow up knowing father. Mother Family Medical History: No Reported History Additional Family Medical History / Comment(s): Mother was healthy. She at age 76yrs. Medications and Allergies Home Medications Medication Instructions Recorded Confirmed Type Acetaminophen Tab [Tylenol] 1,000 mg PO Q6H PRN 10/04/13 12/09/20 History Carbidopa-Levodopa 25-100 mg 1 tab PO BID 04/26/15 12/09/20 History [Sinemet 25-100 mg] Multivitamins, Thera [Multivitamin 1 tab PO DAILY 04/26/15 12/09/20 History (formulary)] Apixaban [Eliquis] 2.5 mg PO BID tablet 05/01/15 12/09/20 Rx Atorvastatin [Lipitor] 40 mg PO DAILY 08/01/15 12/09/20 History Carbidopa-Levodopa ER 25-100Mg 1 tab PO BID 10/25/20 12/09/20 History [Sinemet CR 25-100 mg] traZODone HCL 50 mg PO HS PRN 10/25/20 12/09/20 History Aspirin 81 mg PO DAILY chew 10/28/20 12/09/20 Rx Sacubitril/Valsartan [Entresto 24 1 tab PO BID 11/21/20 12/09/20 History mg-26 mg Tablet] Furosemide [Lasix] 20 mg PO DAILY 30 Days #30 tab 11/23/20 12/09/20 Rx Tamsulosin HCl [Flomax] 0.4 mg PO DAILY 12/09/20 12/09/20 History Allergies Allergy/AdvReac Type Severity Reaction Status Date / Time No Known Allergies Allergy Verified 12/09/20 10:57 Physical Exam Vitals: Vital Signs Temp Pulse Resp BP Pulse Ox 12/09/20 13:26 76 16 106/81 93 L 12/09/20 13:00 105 H 14 94/83 98 12/09/20 12:44 121 H 18 110/82 97 12/09/20 12:30 140 H 15 95/68 97 12/09/20 12:20 130 H 16 95/68 98 12/09/20 11:40 129 H 16 105/59 97 12/09/20 11:20 146 H 16 78/62 97 12/09/20 11:00 122 H 16 71/50 97 12/09/20 10:15 125 H 16 80/30 98 12/09/20 10:06 131 H 13 77/40 98 12/09/20 10:00 97.4 F L 135 H 20 105/86 93 L Intake and Output 12/08/20 12/09/20 12/09/20 22:59 06:59 14:59 Other: Weight 85.729 kg Constitutional: No acute distress, conversant, pleasant Eyes:Anicteric sclerae, moist conjunctiva, no lid-lag, PERRLA, ENMT: Oropharynx clear, no erythema, exudates Neck: Supple, FROM, no masses, or JVD, No carotid bruits, No thyromegaly Lungs: Clear to auscultation, Clear to percussion, Normal respiratory effort, no accessory muscle use Cardiovascular: irregularly irregular. No murmurs, gallops, or rubs, No peripheral edema Abdominal: Soft, Nontender, no guarding, rebound or rigidity, Normoactive bowel sounds, No hepatomegaly, No splenomegaly, No palpable mass Skin: Normal temperature, tone, texture, turgor, no induration, No subcutaneous nodules, No rash, lesions, No ulcers Extremities: No digital cyanosis, No clubbing, Pedal pulses intact and symmetrical, Radial pulses intact and symmetrical, No calf tenderness Psychiatric: Alert and oriented to person, place and time, appropriate affect, intact judgement Neuro: Muscles Strength 5/5 in all 4 extremities, Sensation to light touch grossly present throughout, Cranial nerves II-XII grossly intact, no focal sensory deficits Results CBC & Chem 7: 12/09/20 10:00 12/09/20 10:00 Labs: Abnormal Lab Results - Last 24 Hours (Table) 12/09/20 12/09/20 12/09/20 Range/Units 10:00 10:00 10:00 WBC 10.7 H (3.8-10.6) k/uL RBC 4.04 L (4.30-5.90) m/uL Hgb 12.9 L (13.0-17.5) gm/dL Neutrophils # 9.6 H (1.3-7.7) k/uL Lymphocytes # 0.6 L (1.0-4.8) k/uL APTT 20.4 L (22.0-30.0) sec Carbon Dioxide 21 L (22-30) mmol/L BUN 30 H (9-20) mg/dL Creatinine 1.42 H (0.66-1.25) mg/dL Glucose 151 H (74-99) mg/dL Troponin I (0.000-0.034) ng/mL Total Protein 5.9 L (6.3-8.2) g/dL 12/09/20 Range/Units 10:00 WBC (3.8-10.6) k/uL RBC (4.30-5.90) m/uL Hgb (13.0-17.5) gm/dL Neutrophils # (1.3-7.7) k/uL Lymphocytes # (1.0-4.8) k/uL APTT (22.0-30.0) sec Carbon Dioxide (22-30) mmol/L BUN (9-20) mg/dL Creatinine (0.66-1.25) mg/dL Glucose (74-99) mg/dL Troponin I 0.148 H* (0.000-0.034) ng/mL Total Protein (6.3-8.2) g/dL Assessment and Plan Plan: Symptomatic hypotension Likely secondary to dehydration versus adverse effect of recent medication changes -Initial blood pressure 70/51, hypotension resolved with fluid bolus. -Cardiology consulted. -Hold Lasix and bp meds -Telemetry monitoring -Fall precautions Atrial fibrillation with RVR -Currently on cardizem gtt, HR controlled. Elevated troponin likely secondary to chronic systolic heart failure -Trend troponins Chronic systolic heart failure with a preserved EF of 40-45% -Echocardiogram completed 10/26/20 revealing preserved EF of 40-45% with diffuse septal wall hypokinesis. -Holding lasix sec to low BP. History of Hypertension -Monitor vital signs and continue daily medication regimen, will place parameters on blood pressure medications. -Orthostatic vitals Hyperlipidemia Continue daily medication regimen with atorvastatin 40 mg nightly. Cardiac diet. Parkinson's disease -Safe and supportive care. Patient to be provided with assistance as needed. -Continue daily medication regimen with carbidopa levodopa. CKD stage III, stable -We will continue to monitor with repeat a.m. labs. CODE STATUS: Full code DVT prophylaxis: Trinity Discussed with: Patient and son Anticipated discharge date: Clinical course to determine, likely tomorrow Anticipated discharge place: home with home care A total of 45 minutes was spent on the care of this complex patient more than 50% of the time was spent in counseling and care coordination.
--- NOTE | 2020-12-09 19:23 | CONS ---
CONSULTATION Mr. Manriquez is an 85-year-old male with a known history of coronary artery disease, history of atrial fibrillation, history of ascending aortic aneurysm, history of cardiomyopathy who presented to the hospital in presyncopal and severe dyspnea. According to him, he has been doing quite well until this morning when he was sitting and became quite dyspneic and quite fatigued and when his son saw him, he was not responding well. The EMS found him to be tachycardic, in atrial fibrillation and his blood pressure was quite low. He was brought into the emergency room, was noted to be in atrial fibrillation with rapid ventricular response. He was given fluid. He is stable at this time, feeling much better. His blood pressure is better. He denies any chest pain. He denies any dizziness. Overall, he is feeling better. He has a known history of coronary artery disease and treated medically. He has recently underwent an echocardiogram on October 26 and was found to have an ejection fraction of 40-45%. with mild mitral and tricuspid regurgitation. He denies any palpitation. No peripheral edema. No clear PND or orthopnea. He continues to be at home on trazodone, Flomax 0.4 mg daily. He is on Entresto / twice a day, Lasix 20 mg daily, Sinemet, Lipitor 40 mg daily, aspirin 81 mg daily, and Eliquis 2.5 mg twice a day. REVIEW OF SYSTEMS: RESPIRATORY SYSTEM: He has no documented history of asthma, emphysema or bronchitis. No recent wheezing. GI SYSTEM: No recent GI bleeding or peptic ulcer disease. SYSTEM: No dysuria or hematuria. NERVOUS SYSTEM: No history of stroke or seizure. PHYSICAL EXAMINATION: He had blood pressure down to the 70s, he is back to 100 at this time. Heart rate in the 70s. HEAD: Normocephalic. EYES: Sclerae anicteric. NECK: Good carotid upstroke. No bruit. No jugular venous distention. LUNGS: Clear to auscultation. HEART: S1, S2. No S3 with systolic murmur. No diastolic murmur, no rub. ABDOMEN: Soft, nontender. Positive bowel sounds, no megaly. EXTREMITIES: No edema, intact pulses. LAB DATA: BUN and creatinine 30 and 1.42 which is close to his baseline. Potassium 4.1. His NT proBNP is 1570. His troponin is 1.48 and has been elevated in the prior admission. His potassium is 4.1. His hemoglobin 12.1. His NT proBNP was 1700 about 10 days ago and started. His EKG revealed atrial fibrillation with intraventricular conduction delay at a rate of 141. His chest x-ray showed no acute infiltrate. IMPRESSION: 1. Atrial fibrillation with rapid ventricular response associated with hypotension and dizziness. 2. History of coronary artery disease. 3. Mild troponin elevation most likely related to the atrial fibrillation. No evidence to suggest acute coronary syndrome. 4. History of cardiomyopathy. 5. History of ascending aortic aneurysm. RECOMMENDATION: From the cardiac standpoint, I will stop the IV Cardizem. I will hold the Entresto today. I will start him on low-dose beta bret. Will hold the diuresis today. I will resume his anticoagulation and the Lipitor in the aspirin and depending on his progress further recommendation will be made. Thank you for this consult. We will follow with you. PATRIC / RADHA: [id number] /
[2020-12-09] MEDS: CARBIDOPA-LEVODOPA ER 25-100MG 1 EACH TABLET.ER PO SCH (20:10)
[2020-12-09] MEDS: CARBIDOPA-LEVODOPA 25-100 MG 1 EACH TAB PO SCH (20:10)
[2020-12-09] MEDS: APIXABAN 2.5 MG TABLET PO SCH (20:10)
[2020-12-09 20:29] LABS: Amorphous Sediment,Urine Occasional /hpf; Appearance,Urine Cloudy (Clear); Bacteria,Urine Rare /hpf; Bilirubin,Urine Negative (Negative); Blood,Urine Negative (Negative); Color,Urine Yellow; Glucose,Urine (UA) Negative (Negative); Hyaline Casts,Urine 11 /lpf (0-2); Ketones,Urine Negative (Negative); Leukocyte Esterase,Urine Negative (Negative); Mucus,Urine Occasional /hpf; Nitrite,Urine Negative (Negative); PH, Urine 5.5 (5.0-8.0); Protein,Urine 1+ (Negative); RBC,Urine 1 /hpf (0-5); Specific Gravity,Urine 1.016 (1.001-1.035); Squamous Epithelial Cell,Urine <1 /hpf (0-4); Urobilinogen,Urine <2.0 mg/dL (<2.0); WBC,Urine 4 /hpf (0-5)
[2020-12-09] MEDS: traZODone HCL 50 MG TAB PO PRN (23:00)
[2020-12-10] MEDS: SODIUM CHLORIDE 0.9% 1,000 ML IV SCH ×3 (03:04→19:29)
[2020-12-10 06:45] LABS: Calcium 8.2 mg/dL (8.4-10.2); Potassium 4.1 mmol/L (3.5-5.1)
[2020-12-10] MEDS: METOPROLOL TARTRATE 25 MG TAB PO SCH ×2 (10:04→19:28)
[2020-12-10] MEDS: ASPIRIN 81 MG PO SCH (10:04)
[2020-12-10] MEDS: APIXABAN 2.5 MG TABLET PO SCH ×2 (10:04→19:29)
[2020-12-10] MEDS: CARBIDOPA-LEVODOPA 25-100 MG 1 EACH TAB PO SCH ×2 (10:04→19:28)
[2020-12-10] MEDS: TAMSULOSIN 0.4 MG CAP.ER.24H PO SCH (10:04)
[2020-12-10] MEDS: MULTIVITAMINS, THERA 1 EACH TAB PO SCH (10:05)
[2020-12-10] MEDS: ATORVASTATIN 40 MG TAB PO SCH (10:05)
[2020-12-10] MEDS: CARBIDOPA-LEVODOPA ER 25-100MG 1 EACH TABLET.ER PO SCH ×2 (10:07→19:35)
--- NOTE | 2020-12-10 14:29 | P.PN ---
Subjective Progress Note Date: 12/10/20 This is a pleasant 85-year-old gentleman who follows with Dr. Alarcon the office. He has a history of paroxysmal atrial fibrillation, cardiomyopathy, CAD and ascending aortic aneurysm. Presented to the hospital with presyncope and severe dyspnea. He had been doing well since his last admission until yesterday morning when he was quite short of breath and fatigued when his son came over to see him and he was not responding well. He was found to be tachycardiac and atrial fibrillation with rapid ventricular response in his blood pressure was quite low. He was given IV fluids with improvement. Laboratory values on admission showed a BUN of 30 creatinine 1.4 to repeat this morning of 38 and 1.39. Troponins were elevated at 0.148, 3.26 and 6.4. NT proBNP was 1570. He is currently maintaining sinus mechanism but continues to have episodes of hypotension. Overall this morning he is feeling quite a bit better. On examination he is sitting up in bed visiting with his son eating his lunch. He denies having any chest discomfort prior to admission. Objective - Vital Signs Vital signs: Vital Signs Temp 98.3 F 12/10/20 07:44 Pulse 66 12/10/20 07:44 Resp 22 12/10/20 07:44 BP 131/65 12/10/20 07:44 Pulse Ox 96 12/10/20 07:44 Intake & Output 12/09/20 12/10/20 12/10/20 18:59 06:59 18:59 Intake Total 240 180 Output Total 375 Balance -135 180 Weight 85.729 kg 89.8 kg Intake: Oral 240 180 Output: Urine 375 Other: Voiding Method Urinal # Bowel Movements 2 - Exam PHYSICAL EXAMINATION: HEENT: Head is atraumatic, normocephalic. Pupils equal, round. Neck is supple. There is no elevated jugular venous pressure. HEART EXAMINATION: Heart sounds regular, S1 and S2 with a systolic murmur. CHEST EXAMINATION: Lungs are clear to auscultation. No chest wall tenderness is noted on palpation or with deep breathing. ABDOMEN: Soft, nontender. Bowel sounds are heard. No organomegaly noted. EXTREMITIES: 2+ peripheral pulses with evidence of trace peripheral edema and no calf tenderness noted. NEUROLOGIC patient is awake, alert and oriented x3. . - Labs CBC & Chem 7: 12/09/20 10:00 12/10/20 05:16 Labs: Abnormal Lab Results - Last 24 Hours (Table) 12/09/20 12/09/20 12/09/20 Range/Units 15:10 18:23 19:57 Chloride (98-107) mmol/L BUN (9-20) mg/dL Creatinine (0.66-1.25) mg/dL Glucose (74-99) mg/dL Calcium (8.4-10.2) mg/dL Troponin I 3.260 H* 6.400 H* (0.000-0.034) ng/mL Urine Protein 1+ H (Negative) Amorphous Sediment Occasional H (None) /hpf Urine Bacteria Rare H (None) /hpf Hyaline Casts 11 H (0-2) /lpf Urine Mucus Occasional H (None) /hpf 12/10/20 Range/Units 05:16 Chloride 109 H (98-107) mmol/L BUN 38 H (9-20) mg/dL Creatinine 1.39 H (0.66-1.25) mg/dL Glucose 105 H (74-99) mg/dL Calcium 8.2 L (8.4-10.2) mg/dL Troponin I (0.000-0.034) ng/mL Urine Protein (Negative) Amorphous Sediment (None) /hpf Urine Bacteria (None) /hpf Hyaline Casts (0-2) /lpf Urine Mucus (None) /hpf Assessment and Plan Assessment: #1 paroxysmal atrial fibrillation with rapid ventricular response, currently maintaining sinus mechanism, anticoagulated on Eliquis #2 non-ST elevation SD #3 history of CAD #4 history of cardiomyopathy #5 history of ascending aortic aneurysm Plan: From cardiac standpoint we discussed both options of medical management versus further evaluation with cardiac catheterization. The patient wishes to proceed with cardiac catheterization. We will see the patient tomorrow reevaluate for p ossible cath to be done next week. PART MAKER note has been reviewed, I agree with a documented findings and plan of care. Patient was seen and examined.
[2020-12-10] MEDS ORDERED: MELATONIN 5 MG TABLET PO ONE (22:00)
[2020-12-10] MEDS: traZODone HCL 50 MG TAB PO PRN (22:54)
[2020-12-11] MEDS: SODIUM CHLORIDE 0.9% 1,000 ML IV SCH ×3 (00:24→19:07)
[2020-12-11 07:59] LABS: Calcium 8.5 mg/dL (8.4-10.2); Potassium 4.2 mmol/L (3.5-5.1)
--- NOTE | 2020-12-11 08:00 | P.PN ---
Subjective Progress Note Date: 12/10/20 Principal diagnosis: syncope Doing well. No further episodes of syncope, no cp or sob. Objective - Vital Signs Vital signs: Vital Signs Temp 97.4 F L 12/11/20 04:00 Pulse 48 L 12/11/20 04:00 Resp 18 12/11/20 04:00 BP 128/73 12/11/20 04:00 Pulse Ox 96 12/11/20 04:00 Intake & Output 12/10/20 12/11/20 12/11/20 18:59 06:59 18:59 Intake Total 360 540 Output Total 675 Balance 360 -135 Weight 91.172 kg Intake: Oral 360 540 Output: Urine 675 Other: Voiding Method Urinal # Bowel Movements 2 - Exam Constitutional: No acute distress, conversant, pleasant Eyes:Anicteric sclerae, moist conjunctiva, no lid-lag, PERRLA, ENMT: Oropharynx clear, no erythema, exudates Neck: Supple, FROM, no masses, or JVD, No carotid bruits, No thyromegaly Lungs: Clear to auscultation, Clear to percussion, Normal respiratory effort, no accessory muscle use Cardiovascular: irregularly irregular. No murmurs, gallops, or rubs, No peripheral edema Abdominal: Soft, Nontender, no guarding, rebound or rigidity, Normoactive bowel sounds, No hepatomegaly, No splenomegaly, No palpable mass Skin: Normal temperature, tone, texture, turgor, no induration, No subcutaneous nodules, No rash, lesions, No ulcers Extremities: No digital cyanosis, No clubbing, Pedal pulses intact and symmetrical, Radial pulses intact and symmetrical, No calf tenderness Psychiatric: Alert and oriented to person, place and time, appropriate affect, intact judgement Neuro: Muscles Strength 5/5 in all 4 extremities, Sensation to light touch grossly present throughout, Cranial nerves II-XII grossly intact, no focal sensory deficits - Labs CBC & Chem 7: 12/09/20 10:00 12/11/20 06:47 Assessment and Plan Plan: Symptomatic hypotension Likely secondary to dehydration versus adverse effect of recent medication changes -Initial blood pressure 70/51, hypotension resolved with fluid bolus. -Cardiology consulted. -Hold Lasix and bp meds -Telemetry monitoring -Fall precautions Atrial fibrillation with RVR -Currently on cardizem gtt, HR controlled. Elevated troponin likely secondary to chronic systolic heart failure -Trend troponins Chronic systolic heart failure with a preserved EF of 40-45% -Echocardiogram completed 10/26/20 revealing preserved EF of 40-45% with diffuse septal wall hypokinesis. -Holding lasix sec to low BP. History of Hypertension -Monitor vital signs and continue daily medication regimen, will place parameters on blood pressure medications. -Orthostatic vitals Hyperlipidemia Continue daily medication regimen with atorvastatin 40 mg nightly. Cardiac diet. Parkinson's disease -Safe and supportive care. Patient to be provided with assistance as needed. -Continue daily medication regimen with carbidopa levodopa. CKD stage III, stable -We will continue to monitor with repeat a.m. labs. CODE STATUS: Full code DVT prophylaxis: Trinity Discussed with: Patient and son Anticipated discharge date: Pending heart cath Anticipated discharge place: home with home care A total of 45 minutes was spent on the care of this complex patient more than 50% of the time was spent in counseling and care coordination.
[2020-12-11] MEDS: METOPROLOL TARTRATE 25 MG TAB PO SCH (09:43)
[2020-12-11] MEDS: CARBIDOPA-LEVODOPA ER 25-100MG 1 EACH TABLET.ER PO SCH ×2 (09:43→22:11)
[2020-12-11] MEDS: TAMSULOSIN 0.4 MG CAP.ER.24H PO SCH (09:43)
[2020-12-11] MEDS: ASPIRIN 81 MG PO SCH (09:43)
[2020-12-11] MEDS: ATORVASTATIN 40 MG TAB PO SCH (09:44)
[2020-12-11] MEDS: CARBIDOPA-LEVODOPA 25-100 MG 1 EACH TAB PO SCH ×3 (09:44→22:29)
[2020-12-11] MEDS: APIXABAN 2.5 MG TABLET PO SCH (09:44)
[2020-12-11] MEDS: MULTIVITAMINS, THERA 1 EACH TAB PO SCH (09:44)
--- NOTE | 2020-12-11 10:09 | P.PN ---
Subjective Progress Note Date: 12/11/20 Principal diagnosis: syncope Doing well. No complaints or overnight events. Objective - Vital Signs Vital signs: Vital Signs Temp 98 F 12/11/20 08:00 Pulse 58 L 12/11/20 08:00 Resp 22 12/11/20 08:00 BP 141/79 12/11/20 08:00 Pulse Ox 96 12/11/20 08:00 Intake & Output 12/10/20 12/11/20 12/11/20 18:59 06:59 18:59 Intake Total 360 540 180 Output Total 675 Balance 360 -135 180 Weight 91.172 kg Intake: Oral 360 540 180 Output: Urine 675 Other: Voiding Method Urinal # Bowel Movements 2 - Exam Constitutional: No acute distress, conversant, pleasant Eyes:Anicteric sclerae, moist conjunctiva, no lid-lag, PERRLA, ENMT: Oropharynx clear, no erythema, exudates Neck: Supple, FROM, no masses, or JVD, No carotid bruits, No thyromegaly Lungs: Clear to auscultation, Clear to percussion, Normal respiratory effort, no accessory muscle use Cardiovascular: irregularly irregular. No murmurs, gallops, or rubs, No peripheral edema Abdominal: Soft, Nontender, no guarding, rebound or rigidity, Normoactive bowel sounds, No hepatomegaly, No splenomegaly, No palpable mass Skin: Normal temperature, tone, texture, turgor, no induration, No subcutaneous nodules, No rash, lesions, No ulcers Extremities: No digital cyanosis, No clubbing, Pedal pulses intact and symmetrical, Radial pulses intact and symmetrical, No calf tenderness Psychiatric: Alert and oriented to person, place and time, appropriate affect, intact judgement Neuro: Muscles Strength 5/5 in all 4 extremities, Sensation to light touch gr ossly present throughout, Cranial nerves II-XII grossly intact, no focal sensory deficits - Labs CBC & Chem 7: 12/09/20 10:00 12/11/20 06:47 Labs: Abnormal Lab Results - Last 24 Hours (Table) 12/11/20 Range/Units 06:47 Chloride 111 H (98-107) mmol/L BUN 34 H (9-20) mg/dL Assessment and Plan Plan: Symptomatic hypotension Likely secondary to NSTEMI -Initial blood pressure 70/51, hypotension resolved with fluid bolus. -Cardiology following, cath planned -Hold Lasix and bp meds -Telemetry monitoring -Fall precautions Atrial fibrillation with RVR -Off cardizem gtt, restarted on lopressor by cardio. -Continue eliquis Elevated troponin likely secondary to NSTEMI -Will need heart cath per cardio. Chronic systolic heart failure with a preserved EF of 40-45% -Echocardiogram completed 10/26/20 revealing preserved EF of 40-45% with diffuse septal wall hypokinesis. -Holding lasix sec to low BP. Chronic Hyperlipidemia Parkinson's disease CKD stage III, stable All stable resume meds CODE STATUS: Full code DVT prophylaxis: Eliquis Discussed with: Patient and son Anticipated discharge date: Pending heart cath Anticipated discharge place: home with home care A total of 32 minutes was spent on the care of this complex patient more than 50% of the time was spent in counseling and care coordination.
[2020-12-11] MEDS ORDERED: ATORVASTATIN 80 MG TAB PO STA (12:51)
[2020-12-11] MEDS ORDERED: NITROGLYCERIN SL TABS 0.4 MG TAB SUBLINGUAL PRN (12:51)
[2020-12-11] MEDS ORDERED: ASPIRIN 325 MG TAB PO STA (12:51)
[2020-12-11] MEDS ORDERED: SODIUM CHLORIDE 0.9% 1,000 ML in EMPTY BAG 1 BAG IV ONE (12:51)
[2020-12-11] MEDS ORDERED: ALPRAZolam 0.5 MG TAB PO PRN (12:51)
--- NOTE | 2020-12-11 13:20 | PN ---
PROGRESS NOTE Mr. Manriquez is an 85-year-old male, with known history of heart disease, paroxysmal atrial fibrillation who presented with symptoms of low blood pressure, lack of energy, was noted to be in atrial fibrillation with rapid ventricular response. He is feeling better this morning. He has slept well. He denies any palpitation. He feels dizzy at times. He is in sinus mechanism. He denies any nausea and vomiting. He continues to be at this time on Eliquis 2.5 mg twice a day, aspirin once a day, Lipitor 40 mg daily, metoprolol tartrate 25 mg twice a day. PHYSICAL EXAMINATION: Blood pressure 120/70 with a heart rate in the 50s and 60s, sometime down the 40s. LUNGS: Clear. HEART: Regular rate and rhythm. S1, S2. No S3. No rub. ABDOMEN: Soft, nontender. EXTREMITIES: No edema. LAB DATA: Lab data revealed BUN and creatinine 34 and 1.07, potassium 4.2. IMPRESSION: 1. Non ST-segment elevation myocardial infarction. 2. Paroxysmal atrial fibrillation. 3. Cardiomyopathy. 4. History of coronary artery disease. 5. Ascending aortic aneurysm. RECOMMENDATION: I had a long discussion with him, as well as his son, about the options. The patient at this time would like to proceed with coronary angiography to assess his cardiac status and guide his treatment. His Eliquis will be stopped and he will be tentatively scheduled to undergo the procedure on Saturday and, depending on the results of testing, further recommendation will be made. The patient is in full understanding and agreement. MMODL / IJN: [id number] /
[2020-12-11] MEDS: traZODone HCL 50 MG TAB PO PRN (22:11)
[2020-12-12] MEDS: METOPROLOL TARTRATE 25 MG TAB PO SCH (00:35)
[2020-12-12] MEDS ORDERED: HEPARIN SODIUM,PORCINE 10,000 UNIT in SODIUM CHLORIDE 0.9% 1,000 ML IRRIGATION PRN (07:00)
[2020-12-12] MEDS ORDERED: HEPARIN SODIUM,PORCINE 2,500 UNIT in SODIUM CHLORIDE 0.9% 250 ML IRRIGATION PRN (07:00)
[2020-12-12] MEDS: ASPIRIN 81 MG PO SCH ×2 (08:16→08:17)
[2020-12-12] MEDS: CARBIDOPA-LEVODOPA 25-100 MG 1 EACH TAB PO SCH ×2 (08:17→21:05)
[2020-12-12] MEDS: TAMSULOSIN 0.4 MG CAP.ER.24H PO SCH (08:17)
[2020-12-12] MEDS: CARBIDOPA-LEVODOPA ER 25-100MG 1 EACH TABLET.ER PO SCH ×2 (08:17→21:05)
[2020-12-12] MEDS: MULTIVITAMINS, THERA 1 EACH TAB PO SCH (08:17)
[2020-12-12] MEDS: ATORVASTATIN 40 MG TAB PO SCH ×2 (08:17→08:18)
[2020-12-12] MEDS ORDERED: HEPARIN SODIUM 1,000 UN/ML (10ML VL) IV PRN (08:49)
[2020-12-12 09:00] LABS: Calcium 9.4 mg/dL (8.4-10.2); Potassium 4.6 mmol/L (3.5-5.1)
[2020-12-12 09:22] LABS: Basophils % (A) 0 %; Eosinophils # (A) 0.1 k/uL (0-0.7); Eosinophils % (A) 2 %; HCT 35.5 % (39.0-53.0); HGB 11.6 gm/dL (13.0-17.5); Lymphocytes # (A) 0.7 k/uL (1.0-4.8); Lymphocytes % (A) 11 %; MCHC 32.8 g/dL (31.0-37.0); MCV 100.6 fL (80.0-100.0); Macrocytosis Slight; Mean Platelet Volume 8.9; Monocytes # (A) 0.3 k/uL (0-1.0); Monocytes % (A) 5 %; Neutrophils # (A) 5.1 k/uL (1.3-7.7); Neutrophils % (A) 80 %; Platelet Count 139 k/uL (150-450); RBC 3.53 m/uL (4.30-5.90); RDW 13.7 % (11.5-15.5); WBC 6.4 k/uL (3.8-10.6)
[2020-12-12 09:40] LABS: INR 0.9 (<1.2); Partial Thromboplastin Time 22.8 sec (22.0-30.0); Prothrombin Time 9.8 sec (9.0-12.0)
[2020-12-12] MEDS: HEPARIN SOD,PORK IN 0.45% NACL 25,000 UNIT in 0.45% NACL 1 250ML.BAG IV SCH (10:57)
--- NOTE | 2020-12-12 11:30 | P.PN ---
<Noam Gamble - Last Filed: 12/12/20 10:53> Subjective Progress Note Date: 12/12/20 Hospital course: Patient is a very pleasant 85-year-old male with a past medical history of atr ial fibrillation on Eliquis, ischemic cardiomyopathy, chronic systolic heart failure with a preserved EF of 40-45%, CAD, hypertension, hyperlipidemia, CKD stage III, BPH, and Parkinson's disease. Patient presented to our facility on 12/09/20 with a chief complaint of weakness and hypotension. Upon arrival to facility patient was found to be in A. fib RVR with a systolic blood pressure in the 70s. An EKG was completed showing A. fib with a RVR of 141 bpm with T-wave inversion in lateral leads I and aVL which is new finding when compared to EKG completed on 11/28/20. Chest x-ray completed negative for acute process. Troponins revealed patient to be an NSTEMI with initial troponin 0.148, 3.260, and 6.400. Patient has been admitted under our services with consultation to cardiology for continued medical management. Tentative Plan is to take patient for coronary angiography on 12/13/[address] Alarcon. Physical exam: Patient seen and fully evaluated at the bedside this morning. CBC and BMP reviewed showing no significant abnormalities. Patient sitting up at bedside visiting with son at time of assessment. Patient reports chest pain and weakness has completely subsided. Currently he denies having any headache, lightheadedness, dizziness, chest pain or palpitations, shortness of breath, abdominal pain, nausea, vomiting, or experiencing any numbness/tingling/weakness in his extremities. He reports he has had a good appetite and was able to eat his breakfast without any difficulties. Currently Eliquis has been held due to tentative plans for coronary angiography tomorrow with Dr. Alarcon. Vital signs reviewed and stable. General: Nontoxic, no distress and appears stated age. Derm: Skin warm and dry, normal coloration for ethnicity. Head: Atraumatic, normocephalic and symmetric. Eyes: EOMs intact, no lid lag, and anicteric sclera Mouth: no lip lesions, mucus membranes moist Cardiovascular: Irregularly irregular rhythm with controlled rate, no murmur, positive posterior tibial pulses bilaterally, and cap refill < 2 seconds. Lungs: Respirations even, regular, and unlabored on room air. Lungs CTA bilaterally, no rhonchi, no rales, no wheezing, and no accessory muscle usage. Abdominal: soft, nontender to palpation, no guarding, no appreciable organomegaly Ext: ROM intact. No gross muscle atrophy, no edema, no contractures Neuro: Speech clear, face symmetrical and CN II-XII grossly intact with no noted focal neuro deficits Psych: Alert and oriented to person, place, time, and situation. Appropriate and pleasant affect. Assessment and Plan of Care: A-Fib with RVR NSTEMI in a patient with history of CAD with ischemic cardiomyopathy -EKG showing A. fib with a RVR of 141 bpm with T-wave inversion in lateral leads I and aVL which is new finding when compared to EKG completed on 11/28/20. -Troponins revealed patient to be an NSTEMI with initial troponin 0.148, 3.260, and 6.400. -Cardiology following, tentative plans to take patient for coronary angiography Saturday12/13/[address] Alarcon. -Initially required Cardizem infusion in which patient was weaned off and placed back on beta bret by cardiology. -Eliquis being held per cardiology for tentative plans of coronary angiography. -Continue telemetry monitoring -Continue daily aspirin and atorvastatin. Symptomatic hypotension -Likely secondary to NSTEMI vs A. fib RVR with heart rate 140s -Patient presented with an initial blood pressure 70/51, patient was rehydrated with fluid bolus resulting in complete resolution of hypotension. -Lasix and Entresto held at this time. Chronic systolic heart failure with a preserved EF of 40-45% -Echocardiogram completed 10/26/20 revealing a preserved EF of 40-45% with diffuse septal wall hypokinesis. -Lasix held at this time. History of Hypertension but presenting with hypotension which has now resolved -Lasix and Entrestro held for hypotension. -Cardiology following, appreciate further recommendations. Hyperlipidemia - continue daily medication regimen with atorvastatin 40 mg nightly. BPH -Continue daily medication regimen with Flomax. Parkinson's disease -Continue daily medication regimen with carbidopa levodopa. -Provide safe and supportive care with assistance as needed. CODE STATUS: Full code DVT prophylaxis: SCDs, may resume Eliquis once cleared by cardiology to take Discussed with: Patient, patient's son, and RN Anticipated discharge date: clinical course to determine Anticipated discharge place: Home A total of 45 minutes was spent on the care of this complex patient more than 50% of the time was spent in counseling and care coordination. Objective - Vital Signs Vital signs: Vital Signs Temp 97.6 F 12/12/20 04:00 Pulse 64 12/12/20 04:00 Resp 18 12/12/20 04:00 BP 161/98 12/12/20 04:00 Pulse Ox 93 L 12/12/20 04:00 Intake & Output 12/11/20 12/12/20 12/12/20 18:59 06:59 18:59 Intake Total 660 Output Total 350 865 Balance 310 -865 Weight 92.1 kg Intake: Oral 660 Output: Urine 350 865 Other: Voiding Method Urinal # Voids 1 - Labs CBC & Chem 7: 12/12/20 08:58 12/12/20 07:10 Labs: Abnormal Lab Results - Last 24 Hours (Table) 12/11/20 Range/Units 06:47 Chloride 111 H (98-107) mmol/L BUN 34 H (9-20) mg/dL <Madeleine Gorman - Last Filed: 12/12/20 19:53> Subjective Patient seen and examined independently. Patient was also seen by Noam Gamble NP and case was discussed. I am in agreement with subjective, physical exam, assessment and plan as written above and amended below. He denies any chest pain or shortness of breath at this time. Understands and i s in agreement of plan for cardiac cath tomorrow. General: non toxic, no distress, appears at stated age Derm: warm, dry Head: atraumatic, normocephalic, symmetric Eyes: EOMI, no lid lag, anicteric sclera Mouth: no lip lesion, mucus membranes moist Cardiovascular: [S1S2 regular, no murmur, positive posterior tibial pulse bilateral, Lungs: Decreased breath sounds bilateral, no rhonchi, no rales , no accessory muscle use Abdominal: soft, nontender to palpation, no guarding, no appreciable organ omegaly Ext: no gross muscle atrophy, no edema, no contractures Objective - Vital Signs Vital signs: Vital Signs Temp 98.2 F 12/12/20 19:45 Pulse 58 L 12/12/20 19:45 Resp 16 12/12/20 19:45 BP 150/86 12/12/20 19:45 Pulse Ox 94 L 12/12/20 19:45 Intake & Output 12/12/20 12/12/20 12/13/20 06:59 18:59 06:59 Intake Total 535.492 Output Total 865 1999 Balance -025 -7823.508 Weight 92.1 kg Intake: Intake, IV Titration 75.492 Amount Heparin Sod,Pork in 0.45% 75.492 NaCl 25,000 unit In 0.45 % NaCl 1 250ml.bag @ 10. 857 UNITS/KG/HR 9.999 mls /hr IV .Q24H BAKARI Rx#: [id number] Oral 460 Output: Urine 865 1999 Other: Voiding Method Urinal Urinal # Voids 1 3 # Bowel Movements 1 - Labs CBC & Chem 7: 12/12/20 08:58 12/12/20 07:10 Labs: Abnormal Lab Results - Last 24 Hours (Table) 12/12/20 12/12/20 12/12/20 Range/Units 07:10 08:58 16:55 RBC 3.53 L (4.30-5.90) m/uL Hgb 11.6 L (13.0-17.5) gm/dL Hct 35.5 L (39.0-53.0) % MCV 100.6 H (80.0-100.0) fL Plt Count 139 L (150-450) k/uL Lymphocytes # 0.7 L (1.0-4.8) k/uL APTT 36.8 H (22.0-30.0) sec Chloride 109 H (98-107) mmol/L BUN 30 H (9-20) mg/dL Glucose 100 H (74-99) mg/dL
--- NOTE | 2020-12-12 12:02 | P.PN ---
Subjective This is a pleasant 85-year-old male past medical history significant for coronary artery disease, paroxysmal atrial fibrillation, dyslipidemia and hypertension. He follows in the office with Dr. Alarcon. He is seen and examined resting comfortably laying flat in bed in no acute distress. He has no symptoms of chest discomfort or shortness of breath. He is currently maintaining sinus mechanism. Telemetry tracings reveal his heart rate is resting between 45 and 50 for the most part. Blood pressure 136/74 heart rate 65 afebrile maintaining oxygen saturation on room air. Laboratory data reviewed, WBC 6.4, hemoglobin 11.6, platelets 139, sodium 140, potassium 4.6 and creatinine 0.95. Currently maintained on aspirin 81 mg daily, atorvastatin 40 mg daily and metoprolol 25 mg twice a day. Recent echocardiogram October of this year revealed impaired LV systolic function with ejection fraction 40-45%, basal inferior, basal inferior septal, mid inferior midinferior septal wall motion abnormalities, mild MR, mild TR. GENERAL: Well-appearing, well-nourished and in no acute distress. NECK: Supple without JVD or thyromegaly. LUNGS: Breath sounds clear to auscultation bilaterally. Respiration equal and unlabored. No wheezes, rales or rhonchi. HEART: Regular rate and rhythm without murmurs, rubs or gallops. S1 and S2 heard. EXTREMITIES: Normal range of motion, no edema. No clubbing or cyanosis. Peripheral pulses intact. ASSESSMENT Non-ST elevated myocardial infarction Paroxysmal atrial fibrillation, currently maintaining sinus mechanism History of coronary artery disease, mid LAD 30-40% stenosis, 50% plaque in the distal circumflex Chronic systolic heart failure, clinically euvolemic Dyslipidemia Hypertension PLAN Eliquis currently on hold for cardiac catheterization with Dr. Alarcon tomorrow. Initiate heparin infusion. Obtain echocardiogram to assess cardiac structure and function. Nothing by mouth after midnight tonight. Further recommendations to follow based upon clinical course. Nurse Practitioner note has been reviewed, I agree with a documented findings and plan of care. Patient was seen and examined. Objective - Vital Signs Vital signs: Vital Signs Temp 97.8 F 12/12/20 08:11 Pulse 65 12/12/20 11:03 Resp 16 12/12/20 11:03 BP 136/74 12/12/20 11:03 Pulse Ox 96 12/12/20 11:03 Intake & Output 12/11/20 12/12/20 12/12/20 18:59 06:59 18:59 Intake Total 660 280 Output Total 350 865 975 Balance 931 -353 -603 Weight 92.1 kg Intake: Oral 660 280 Output: Urine 350 865 975 Other: Voiding Method Urinal Urinal # Voids 1 2 # Bowel Movements 1 - Labs CBC & Chem 7: 12/12/20 08:58 12/12/20 07:10 Labs: Abnormal Lab Results - Last 24 Hours (Table) 12/12/20 12/12/20 Range/Units 07:10 08:58 RBC 3.53 L (4.30-5.90) m/uL Hgb 11.6 L (13.0-17.5) gm/dL Hct 35.5 L (39.0-53.0) % MCV 100.6 H (80.0-100.0) fL Plt Count 139 L (150-450) k/uL Lymphocytes # 0.7 L (1.0-4.8) k/uL Chloride 109 H (98-107) mmol/L BUN 30 H (9-20) mg/dL Glucose 100 H (74-99) mg/dL
[2020-12-12] MEDS: traZODone HCL 50 MG TAB PO PRN (21:07)
[2020-12-12] MEDS ORDERED: SODIUM CHLORIDE 0.9% 1,000 ML in EMPTY BAG 1 BAG IV ONE (23:59)
[2020-12-13] MEDS ORDERED: ASPIRIN 325 MG TAB PO ONE (06:00)
[2020-12-13] MEDS: CARBIDOPA-LEVODOPA 25-100 MG 1 EACH TAB PO SCH ×2 (06:34→19:55)
[2020-12-13] MEDS: CARBIDOPA-LEVODOPA ER 25-100MG 1 EACH TABLET.ER PO SCH ×2 (06:34→19:55)
[2020-12-13] MEDS: MULTIVITAMINS, THERA 1 EACH TAB PO SCH (06:34)
[2020-12-13] MEDS: TAMSULOSIN 0.4 MG CAP.ER.24H PO SCH (06:35)
[2020-12-13] MEDS: HEPARIN SOD,PORK IN 0.45% NACL 25,000 UNIT in 0.45% NACL 1 250ML.BAG IV SCH (09:00)
[2020-12-13 09:35] LABS: Partial Thromboplastin Time 44.5 sec (22.0-30.0); Prothrombin Time 10.4 sec (9.0-12.0)
[2020-12-13] MEDS ORDERED: LIDOCAINE 1% INJ 10MG/ML (20 ML MDV) ONE (09:46)
--- NOTE | 2020-12-13 09:47 | P.PN ---
<Noam Gamble - Last Filed: 12/13/20 11:01> Subjective Progress Note Date: 12/13/20 Hospital course: Patient is a very pleasant 85-year-old male with a past medical history of atr ial fibrillation on Eliquis, ischemic cardiomyopathy, chronic systolic heart failure with a preserved EF of 40-45%, CAD, hypertension, hyperlipidemia, CKD stage III, BPH, and Parkinson's disease. Patient presented to our facility on 12/09/20 with a chief complaint of weakness and hypotension. Upon arrival to facility patient was found to be in A. fib RVR with a systolic blood pressure in the 70s. An EKG was completed showing A. fib with a RVR of 141 bpm with T-wave inversion in lateral leads I and aVL which is new finding when compared to EKG completed on 11/28/20. Chest x-ray completed negative for acute process. Troponins revealed patient to be an NSTEMI with initial troponin 0.148, 3.260, and 6.400. Patient has been admitted under our services with consultation to cardiology for continued medical management. Plan is for patient to go for coronary angiography later today. Physical exam: Patient seen and fully evaluated at the bedside this morning. Patient sitting up at bedside visiting with son at time of assessment. Patient reports chest pain and weakness remain gone. He is awaiting coronary angiography at this time. Tentitive time is 11:30 AM. Currently pt denies having any headache, lightheadedness, dizziness, chest pain or palpitations, shortness of breath, abdominal pain, nausea, vomiting, or experiencing any numbness/tingling/weakness in his extremities. Vital signs reviewed and stable. General: Nontoxic, no distress and appears stated age. Derm: Skin warm and dry, normal coloration for ethnicity. Head: Atraumatic, normocephalic and symmetric. Eyes: EOMs intact, no lid lag, and anicteric sclera Mouth: no lip lesions, mucus membranes moist Cardiovascular: Irregularly irregular rhythm with controlled rate, no murmur, positive posterior tibial pulses bilaterally, and cap refill < 2 seconds. Lungs: Respirations even, regular, and unlabored on room air. Lungs CTA bilaterally, no rhonchi, no rales, no wheezing, and no accessory muscle usage. Abdominal: soft, nontender to palpation, no guarding, no appreciable organomegaly Ext: ROM intact. No gross muscle atrophy, no edema, no contractures Neuro: Speech clear, face symmetrical and CN II-XII grossly intact with no noted focal neuro deficits Psych: Alert and oriented to person, place, time, and situation. Appropriate and pleasant affect. Assessment and Plan of Care: A-Fib with RVR NSTEMI in a patient with history of CAD with ischemic cardiomyopathy -EKG showing A. fib with a RVR of 141 bpm with T-wave inversion in lateral leads I and aVL which is new finding when compared to EKG completed on 11/28/20. -Troponins revealed patient to be an NSTEMI with initial troponin 0.148, 3.260, and 6.400. -Cardiology following, pt to be taken for coronary angiography later today with Dr. Alarcon. -Initially required Cardizem infusion in which patient was weaned off and placed back on beta bret by cardiology. -Eliquis being held per cardiology for tentative plans of coronary angiography. -Continue telemetry monitoring -Continue daily aspirin and atorvastatin. Symptomatic hypotension -Likely secondary to NSTEMI vs A. fib RVR with heart rate 140s -Patient presented with an initial blood pressure 70/51, patient was rehydrated with fluid bolus resulting in complete resolution of hypotension. -Lasix and Entresto held at this time. Chronic systolic heart failure with a preserved EF of 40-45% -Echocardiogram completed 10/26/20 revealing a preserved EF of 40-45% with diffuse septal wall hypokinesis. -Lasix held at this time. History of Hypertension but presenting with hypotension which has now resolved -Lasix and Entrestro held for hypotension. -Cardiology following, appreciate further recommendations. Hyperlipidemia - continue daily medication regimen with atorvastatin 40 mg nightly. BPH -Continue daily medication regimen with Flomax. Parkinson's disease -Continue daily medication regimen with carbidopa levodopa. -Provide safe and supportive care with assistance as needed. CODE STATUS: Full code DVT prophylaxis: SCDs, may resume Eliquis once cleared by cardiology to resume Discussed with: Patient, patient's son, and RN Anticipated discharge date: clinical course to determine Anticipated discharge place: Home A total of 45 minutes was spent on the care of this complex patient more than 50% of the time was spent in counseling and care coordination. Objective - Vital Signs Vital signs: Vital Signs Temp 97.6 F 12/13/20 04:00 Pulse 53 L 12/13/20 04:00 Resp 18 12/13/20 04:00 BP 159/81 12/13/20 04:00 Pulse Ox 96 12/13/20 04:00 Intake & Output 12/12/20 12/13/20 12/13/20 18:59 06:59 18:59 Intake Total 535.492 Output Total 1999 1310 Balance -1464.508 -1310 Weight 92.4 kg Intake: Intake, IV Titration 75.492 Amount Heparin Sod,Pork in 0.45% 75.492 NaCl 25,000 unit In 0.45 % NaCl 1 250ml.bag @ 10. 857 UNITS/KG/HR 9.999 mls /hr IV .Q24H [facility] Rx#: [id number] Oral 460 Output: Urine 19990 Other: Voiding Method Urinal Urinal # Voids 3 1 # Bowel Movements 1 - Labs CBC & Chem 7: 12/13/20 07:53 12/12/20 07:10 Labs: Abnormal Lab Results - Last 24 Hours (Table) 12/12/20 12/12/20 12/13/20 Range/Units 16:55 23:55 07:53 APTT 36.8 H 65.5 H 44.5 H (22.0-30.0) sec <Madeleine Gorman - Last Filed: 12/13/20 19:43> Subjective Noam Gamble NP rendered care for this patient independently, reviewed the findings and plan as documented in the note above. I did not physically speak with or examine the patient on this date. Patient will be increasing and renal dysfunction has improved. Anticipate resuming entresto in a.m. if renal function is stable. He has been unable to tolerate beta blockers and amiodarone in the past because of hypotension and bradycardia. Objective - Vital Signs Vital signs: Vital Signs Temp 97.9 F 12/13/20 16:00 Pulse 53 L 12/13/20 08:00 Resp 18 12/13/20 16:00 BP 150/79 12/13/20 16:32 Pulse Ox 95 12/13/20 16:00 Intake & Output 12/13/20 12/13/20 12/14/20 06:59 18:59 06:59 Intake Total 200 Output Total 1310 450 Balance -1310 -250 Weight 92.4 kg 92.4 kg Intake: IV 200 Output: Urine 1310 450 Other: Voiding Method Urinal # Voids 1 # Bowel Movements 1 - Labs CBC & Chem 7: 12/13/20 07:53 12/12/20 07:10 Labs: Abnormal Lab Results - Last 24 Hours (Table) 12/12/20 12/13/20 12/13/20 Range/Units 23:55 07:53 07:53 RBC 3.37 L (4.30-5.90) m/uL Hgb 11.2 L (13.0-17.5) gm/dL Hct 33.4 L (39.0-53.0) % Lymphocytes # 0.5 L (1.0-4.8) k/uL APTT 65.5 H 44.5 H (22.0-30.0) sec
--- NOTE | 2020-12-13 09:52 | ECHOF ---
Referral Reason:nstemi MEASUREMENTS -------- HEIGHT: 172.7 cm WEIGHT: 90.7 kg BP: RVIDd: 4.5 cm (< 3.3) IVSd: 1.6 cm (0.6 - 1.1) LVIDd: 4.0 cm (3.9 - 5.3) LVPWd: 1.6 cm (0.6 - 1.1) IVSs: 2.3 cm LVIDs: 2.7 cm LVPWs: 1.8 cm LA Diam: 4.1 cm (2.7 - 3.8) LAESV Index (A-L): 49.36 ml/m Ao Diam: 4.2 cm (2.0 - 3.7) AV Cusp: 2.4 cm (1.5 - 2.6) MV EXCURSION: 15.119 mm (> 18.000) MV EF SLOPE: 28 mm/s (70 - 150) EPSS: 1.3 cm MV E Trent: 1.06 m/s MV DecT: 282 ms MV A Trent: 1.05 m/s MV E/A Ratio: 1.01 AR PHT: 794 ms RAP: 5.00 mmHg RVSP: 31.31 mmHg FINDINGS -------- Resting bradycardia (HR<60bpm). This was a technically adequate study. The left ventricular size is normal. There is moderate concentric left ventricular hypertrophy. O verall left ventricular systolic function is mildly impaired with, an EF between 45 - 50 %. The right ventricle is severely enlarged. LA is severely dilated >40 ml/m2 The right atrium is normal in size. There is mild aortic valve sclerosis. There is mild aortic regurgitation. Mild mitral regurgitation is present. Mild tricuspid regurgitation present. Right ventricular systolic pressure is normal at < 35 mmHg. Moderate pulmonic regurgitation. The aortic root is dilated measuring 4.2cm. Ascending AO more than 50 mm IVC Not well visulized. There is no pericardial effusion. CONCLUSIONS -------- 1. The left ventricular size is normal. 2. There is moderate concentric left ventricular hypertrophy. 3. Overall left ventricular systolic function is mildly impaired with, an EF between 45 - 50 %. 4. The right ventricle is severely enlarged. 5. LA is severely dilated >40 ml/m2 6. There is mild aortic valve sclerosis. 7. There is mild aortic regurgitation. 8. Mild mitral regurgitation is present. 9. Mild tricuspid regurgitation present. 10. Moderate pulmonic regurgitation. 11. The aortic root is dilated measuring 4.2cm. 12. Ascending AO more than 50 mm 13. There is no pericardial effusion. COIN MACHINE ASSEMBLER: Germaine Kline RDCS
[2020-12-13 10:33] LABS: Basophils % (A) 0 %; Eosinophils # (A) 0.1 k/uL (0-0.7); Eosinophils % (A) 2 %; HCT 33.4 % (39.0-53.0); HGB 11.2 gm/dL (13.0-17.5); Lymphocytes # (A) 0.5 k/uL (1.0-4.8); Lymphocytes % (A) 10 %; MCH 33.2 pg (25.0-35.0); MCHC 33.5 g/dL (31.0-37.0); MCV 99.1 fL (80.0-100.0); Mean Platelet Volume 8.7; Monocytes # (A) 0.4 k/uL (0-1.0); Monocytes % (A) 6 %; Neutrophils # (A) 4.4 k/uL (1.3-7.7); Neutrophils % (A) 80 %; Platelet Count 167 k/uL (150-450); RBC 3.37 m/uL (4.30-5.90); RDW 14.5 % (11.5-15.5); WBC 5.5 k/uL (3.8-10.6)
[2020-12-13] MEDS ORDERED: LIDOCAINE 1% INJ 10MG/ML (20 ML MDV) SQ ONE ×2 (12:22→13:11)
[2020-12-13] MEDS ORDERED: fentaNYL (PF) 50 MCG/ML 2 ML AMP IV ONE (12:27)
[2020-12-13] MEDS ORDERED: IV FLUID CONTINUATION 1,000 ML IV ONE (12:27)
[2020-12-13] MEDS ORDERED: VERAPAMIL SYRINGE (5 MG/10 ML) INTRAARTER ONE (13:12)
[2020-12-13] MEDS ORDERED: HEPARIN SODIUM 1,000 UN/ML (10ML VL) IV ONE (13:21)
[2020-12-13] MEDS ORDERED: MIDAZOLAM 2 MG/2 ML VIAL IV ONE (13:21)
[2020-12-13] MEDS ORDERED: IOPAMIDOL-370 100ML BTL INJ ONE ×2 (13:36→13:37)
[2020-12-13] MEDS ORDERED: RX INFO: IV CONTRAST WAS GIVEN 1 EACH MISC MISCELLANE PRN (13:47)
[2020-12-13] MEDS ORDERED: SODIUM CHLORIDE 0.9% 1,000 ML IV SCH (14:00)
--- NOTE | 2020-12-13 18:25 | CC ---
CARDIAC CATHETERIZATION REPORT PROCEDURE: Cardiac catheterization. INDICATIONS: Mr. Manriquez is an 85-year-old male with a known history of paroxysmal atrial fibrillation, history of ascending aortic aneurysm, coronary artery disease who presented with symptoms of palpitation, dizziness, and troponin elevation. After discussion with the patient and his family, recommendation regarding cardiac catheterization. The procedure as well as the risks and complications were discussed with the patient who is in full understanding and agreement. 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 PROCEDURE IN DETAIL: Patient was brought to biology laboratory assistant in a fasting semi-sedated state after receiving fentanyl and Benadryl and achieving moderate conscious sedated state. Using Xylocaine anesthesia and Seldinger technique, a 6-Micronesian sheath was introduced in the right femoral artery. Subsequently, the sheath was exchanged to a 6-Micronesian sheaths 70 mm sheath. Multiple attempts to cannulate the left main using a 6-Micronesian JL5, JL6, XB lad 4.5, AL 3, and multipurpose A2 were unsuccessful. One of the catheters crossed the aortic valve and left ventricular end-diastolic pressure was calculated. Following that, the catheters were removed. The 70 mm sheath was removed and reintroduced irregular sheath. Subsequently, using Xylocaine anesthesia and Seldinger technique, a 6-Micronesian sheath was introduced in the left radial artery. Attempt to cannulate the left main initially using a 6-Micronesian FL catheter was unsuccessful. The catheter was removed and the XB lad 4.5 was successful in cannulating the left main. Multiple images of the coronary artery including hemiaxial views obtained. Following that, catheter and sheath were removed. Hemostasis was obtained with deployment TR band on the left radial artery and Angio-Seal in the right femoral artery. The patient was returned to his room in stable condition. Of note, the patient received 5000 units of intravenous heparin, as well as intra-arterial verapamil. FINDINGS: FLUOROSCOPY: There was severe calcification involving the coronary arteries. LEFT MAIN: This is a large-sized vessel, bifurcating into left circumflex, left anterior descending artery. Left main coronary artery has no evidence of high- grade stenosis. LEFT ANTERIOR DESCENDING CORONARY ARTERY: This is a large-sized vessel with a wraparound apex segment giving rise to a diagonal branches of moderate caliber. The left anterior descending artery has intimal disease with plaques throughout its course of 20% to 30%, without any evidence of high-grade stenosis. LEFT CIRCUMFLEX: This is a large codominant system giving rise to an obtuse marginal branch in the mid segment distally bifurcating PDA and posterolateral segment branches. The AV groove, left circumflex has intimal disease up to 40% without any critical stenosis. The PDA and PLV have no evidence of high-grade stenosis. RIGHT CORONARY ARTERY: Images of the right coronary artery were not performed since it is known to be occluded in the past. There is collateral from the left coronary system toward the distal right PDA. HEMODYNAMICS: There was no gradient across the aortic valve. The left ventricle end-diastolic pressure was 14-16 mmHg. CONCLUSION: 1. Calcified coronary artery. 2. Moderate disease involving the LAD and the left circumflex. 3. Collaterals from the left coronary system toward the right PDA. 4. Codominant system. RECOMMENDATION: In view of finding anatomy, I recommend to continue medical therapy, reinitiate anticoagulation and will obtain the input of Dr. William regarding his atrial fibrillation. Of note, the patient could not tolerate a beta bret or the amiodarone in the past because of hypotension and bradycardia. It appears that could be aggravating factor in his presentation. Those findings and recommendation were discussed with the patient and his family, who are in full understanding and agreement. Duration of the sedation is 76 minute. MMCHRISTOPHER / FRANCYN: [id number] / [email or web address]
[2020-12-13] MEDS: METOPROLOL TARTRATE 25 MG TAB PO SCH (19:46)
[2020-12-13] MEDS: traZODone HCL 50 MG TAB PO PRN (22:48)
[2020-12-14 06:38] LABS: HCT 31.1 % (39.0-53.0); HGB 10.6 gm/dL (13.0-17.5); MCH 33.8 pg (25.0-35.0); MCHC 34.1 g/dL (31.0-37.0); MCV 98.9 fL (80.0-100.0); Platelet Count 136 k/uL (150-450); RBC 3.14 m/uL (4.30-5.90); RDW 13.8 % (11.5-15.5)
[2020-12-14 06:54] LABS: Calcium 9.1 mg/dL (8.4-10.2); Potassium 4.4 mmol/L (3.5-5.1)
[2020-12-14] MEDS: ASPIRIN 81 MG PO SCH (08:16)
[2020-12-14] MEDS: APIXABAN 2.5 MG TABLET PO SCH ×2 (08:16→20:29)
[2020-12-14] MEDS: TAMSULOSIN 0.4 MG CAP.ER.24H PO SCH (08:16)
[2020-12-14] MEDS: CARBIDOPA-LEVODOPA ER 25-100MG 1 EACH TABLET.ER PO SCH ×2 (08:16→20:29)
[2020-12-14] MEDS: MULTIVITAMINS, THERA 1 EACH TAB PO SCH (08:16)
[2020-12-14] MEDS: CARBIDOPA-LEVODOPA 25-100 MG 1 EACH TAB PO SCH ×2 (08:16→20:29)
[2020-12-14] MEDS: ATORVASTATIN 40 MG TAB PO SCH (08:17)
--- NOTE | 2020-12-14 09:44 | P.PN ---
Subjective This is a pleasant 85-year-old male past medical history significant for coronary artery disease, paroxysmal atrial fibrillation, dyslipidemia and hypertension. He follows in the office with Dr. Alarcon. He is seen and examined resting comfortably laying flat in bed in no acute distress. He has no symptoms of chest discomfort or shortness of breath. He is currently maintaining sinus mechanism. Telemetry tracings reveal his heart rate is resting between 45 and 50 for the most part. Blood pressure 136/74 heart rate 65 afebrile maintaining oxygen saturation on room air. Laboratory data reviewed, WBC 6.4, hemoglobin 11.6, platelets 139, sodium 140, potassium 4.6 and creatinine 0.95. Currently maintained on aspirin 81 mg daily, atorvastatin 40 mg daily and metoprolol 25 mg twice a day. Recent echocardiogram October of this year revealed impaired LV systolic function with ejection fraction 40-45%, basal inferior, basal inferior septal, mid inferior midinferior septal wall motion abnormalities, mild MR, mild TR. 12/14/2018 Patient was seen and examined resting comfortably laying flat in bed in no acute distress. He denies any active symptoms of chest discomfort or shortness of breath. Cardiac catheterization yesterday revealed stable CAD when compared to previous study. Calcified coronary arteries, moderate disease involving the LAD and left circumflex, collaterals from the left system toward the right PDA. Dr. Alarcon as requested Dr. William to evaluate the patient for possible pacemaker insertion secondary to tachybradycardia syndrome that is thought to be the underlying cause of all his symptoms. Blood pressure 151/79 heart rate 62 afebrile maintaining oxygen saturation on room air. Laboratory data reviewed, WBC 5, hemoglobin 10.6, platelets 136, sodium 139, potassium 4.4 and creatinine 1.08. He is currently in afib with controlled rates 60-90s. GENERAL: Well-appearing, well-nourished and in no acute distress. NECK: Supple without JVD or thyromegaly. LUNGS: Breath sounds clear to auscultation bilaterally. Respiration equal and unlabored. No wheezes, rales or rhonchi. HEART: Irregular rate and rhythm without murmurs, rubs or gallops. S1 and S2 heard. EXTREMITIES: Normal range of motion, no edema. No clubbing or cyanosis. Peripheral pulses intact. Right femoral access site soft, non-tender with no significant hematoma or ecchymosis. ASSESSMENT Non-ST elevated myocardial infarction Paroxysmal atrial fibrillation, currently maintaining sinus mechanism Tachy-lalo syndrome History of coronary artery disease, mid LAD 30-40% stenosis, 50% plaque in the distal circumflex Chronic systolic heart failure, clinically euvolemic Dyslipidemia Hypertension PLAN Eliquis has been resumed. Await Dr William evaluation. Continue current medical regimen. Further recommendations to follow based upon clinical course. Nurse Practitioner note has been reviewed, I agree with a documented findings and plan of care. Patient was seen and examined. Objective - Vital Signs Vital signs: Vital Signs Temp 97.9 F 12/14/20 04:00 Pulse 60 12/14/20 04:00 Resp 22 12/14/20 04:00 BP 123/83 12/14/20 04:00 Pulse Ox 94 L 12/14/20 04:00 Intake & Output 12/13/20 12/14/20 12/14/20 18:59 06:59 18:59 Intake Total 200 120 Output Total 450 830 Balance -250 -830 120 Weight 92.4 kg 92.1 kg Intake: IV 200 Oral 120 Output: Urine 450 830 Other: Voiding Method Urinal # Voids 1 # Bowel Movements 1 - Labs CBC & Chem 7: 12/14/20 05:50 12/14/20 05:50 Labs: Abnormal Lab Results - Last 24 Hours (Table) 12/13/20 12/13/20 12/14/20 Range/Units 07:53 07:53 05:50 RBC 3.37 L (4.30-5.90) m/uL Hgb 11.2 L (13.0-17.5) gm/dL Hct 33.4 L (39.0-53.0) % Plt Count (150-450) k/uL Lymphocytes # 0.5 L (1.0-4.8) k/uL APTT 44.5 H (22.0-30.0) sec Chloride 109 H (98-107) mmol/L BUN 26 H (9-20) mg/dL 12/14/20 Range/Units 05:50 RBC 3.14 L (4.30-5.90) m/uL Hgb 10.6 L (13.0-17.5) gm/dL Hct 31.1 L (39.0-53.0) % Plt Count 136 L (150-450) k/uL Lymphocytes # (1.0-4.8) k/uL APTT (22.0-30.0) sec Chloride (98-107) mmol/L BUN (9-20) mg/dL
--- NOTE | 2020-12-14 12:39 | P.PN ---
Subjective Progress Note Date: 12/14/20 No new complaints. Pt underwent LHC which demonstrated some disease in LAD and LCx, occluded RCA as previously known. Plan for medical tx. EP evaluating for PPM placement given tachy-lalo symptoms. Objective - Vital Signs Vital signs: Vital Signs Temp 98.2 F 12/14/20 08:00 Pulse 62 12/14/20 08:00 Resp 20 12/14/20 08:00 BP 151/79 12/14/20 08:00 Pulse Ox 99 12/14/20 08:00 Intake & Output 12/13/20 12/14/20 12/14/20 18:59 06:59 18:59 Intake Total 200 360 Output Total 450 830 Balance -250 -830 360 Weight 92.4 kg 92.1 kg Intake: IV 200 Oral 360 Output: Urine 450 830 Other: Voiding Method Urinal # Voids 1 # Bowel Movements 1 - Exam Gen: awake, alert HEENT: normocephalic, atraumatic, impaired hearing acuity, moist mucous membranes Resp: good air exchange, breathing comfortably with no accessory muscle use, clear to auscultation bilaterally without wheezes or crackles CVS: good distal perfusion x 4, irregular rate and rhythm GI: soft, NTTP, ND : no SPT, no CVAT, olivera catheter not present MSK: no pitting edema, no clubbing Neuro: non-focal, moving all extremities Psych: cooperative, euthymic mood - Labs CBC & Chem 7: 12/14/20 05:50 12/14/20 05:50 Labs: Abnormal Lab Results - Last 24 Hours (Table) 12/14/20 12/14/20 Range/Units 05:50 05:50 RBC 3.14 L (4.30-5.90) m/uL Hgb 10.6 L (13.0-17.5) gm/dL Hct 31.1 L (39.0-53.0) % Plt Count 136 L (150-450) k/uL Chloride 109 H (98-107) mmol/L BUN 26 H (9-20) mg/dL Assessment and Plan Assessment: A-Fib with RVR NSTEMI in a patient with history of CAD with ischemic cardiomyopathy -EKG showing A. fib with a RVR of 141 bpm with T-wave inversion in lateral leads I and aVL which is new finding when compared to EKG completed on 11/28/20. -Troponins revealed patient to be an NSTEMI with initial troponin 0.148, 3.260, and 6.400. -Cardiology following, [facility] 12/13 = LAD 20-30%, LCx 40%, RCA occluded -Initially required Cardizem infusion in which patient was weaned off and placed back on beta bret by cardiology. -off of AVN controlling agents given tachy-lalo syndrome -EP consult re: PPM implantation -Eliquis restared s/p [facility] -Continue telemetry monitoring -Continue daily aspirin and atorvastatin. Symptomatic hypotension, resolved -Likely secondary to Dehydration from PO lasix at home complicated by A Fib with RVR -Patient presented with an initial blood pressure 70/51, patient was rehydrated with fluid bolus resulting in complete resolution of hypotension. -Lasix and Entresto held at this time. Chronic systolic heart failure with a preserved EF of 40-45%, currently euvole more -Echocardiogram completed 10/26/20 revealing a preserved EF of 40-45% with diffuse septal wall hypokinesis. -Lasix held at this time. History of Hypertension but presenting with hypotension which has now resolved -Lasix and Entrestro held for hypotension. -Cardiology following, appreciate further recommendations. Hyperlipidemia - continue daily medication regimen with atorvastatin 40 mg nightly. BPH -Continue daily medication regimen with Flomax. Parkinson's disease -Continue daily medication regimen with carbidopa levodopa. -Provide safe and supportive care with assistance as needed. DVT PPx with Eliquis Pt warrants [facility] discussion but is currently FULL CODE
[2020-12-14] MEDS: ALPRAZolam 0.25 MG TAB PO PRN ×2 (16:38→23:03)
[2020-12-14] MEDS: ACETAMINOPHEN TAB 500 MG TAB PO PRN (16:38)
[2020-12-14] MEDS: traZODone HCL 50 MG TAB PO PRN (23:03)
[2020-12-15] MEDS: ACETAMINOPHEN TAB 500 MG TAB PO PRN (08:28)
[2020-12-15] MEDS: ASPIRIN 81 MG PO SCH (08:28)
[2020-12-15] MEDS: APIXABAN 2.5 MG TABLET PO SCH ×2 (08:28→21:11)
[2020-12-15] MEDS: MULTIVITAMINS, THERA 1 EACH TAB PO SCH (08:29)
[2020-12-15] MEDS: ATORVASTATIN 40 MG TAB PO SCH (08:29)
[2020-12-15] MEDS: ALPRAZolam 0.25 MG TAB PO PRN ×2 (08:29→23:38)
[2020-12-15] MEDS: CARBIDOPA-LEVODOPA 25-100 MG 1 EACH TAB PO SCH ×2 (08:29→21:11)
[2020-12-15] MEDS: TAMSULOSIN 0.4 MG CAP.ER.24H PO SCH (08:29)
[2020-12-15] MEDS: CARBIDOPA-LEVODOPA ER 25-100MG 1 EACH TABLET.ER PO SCH ×2 (08:29→21:11)
--- NOTE | 2020-12-15 10:02 | P.PN ---
Subjective This is a pleasant 85-year-old male past medical history significant for coronary artery disease, paroxysmal atrial fibrillation, dyslipidemia and hypertension. He follows in the office with Dr. Alarcon. He is seen and examined resting comfortably laying flat in bed in no acute distress. He has no symptoms of chest discomfort or shortness of breath. He is currently maintaining sinus mechanism. Telemetry tracings reveal his heart rate is resting between 45 and 50 for the most part. Blood pressure 136/74 heart rate 65 afebrile maintaining oxygen saturation on room air. Laboratory data reviewed, WBC 6.4, hemoglobin 11.6, platelets 139, sodium 140, potassium 4.6 and creatinine 0.95. Currently maintained on aspirin 81 mg daily, atorvastatin 40 mg daily and metoprolol 25 mg twice a day. Recent echocardiogram October of this year revealed impaired LV systolic function with ejection fraction 40-45%, basal inferior, basal inferior septal, mid inferior midinferior septal wall motion abnormalities, mild MR, mild TR. 12/15/2020 Pt seen and examined sitting up in bed in no acute distress. He denies chest pain, shortness of breath, dizziness or palpitations. He states he actually felt quite well this morning and slept a decent amount last night. Blood pressure 168/89 heart rate 64 afebrile and maintaining oxygen saturation on room air. He continues to be in atrial fibrillation with controlled rates. He does go back and forth from SR to afib sporadically. GENERAL: Well-appearing, well-nourished and in no acute distress. NECK: Supple without JVD or thyromegaly. LUNGS: Breath sounds clear to auscultation bilaterally. Respiration equal and unlabored. No wheezes, rales or rhonchi. HEART: Irregular rate and rhythm without murmurs, rubs or gallops. S1 and S2 heard. EXTREMITIES: Normal range of motion, no edema. No clubbing or cyanosis. Peripheral pulses intact. Right femoral access site soft, non-tender with no sig nificant hematoma or ecchymosis. ASSESSMENT Non-ST elevated myocardial infarction Paroxysmal atrial fibrillation, currently maintaining sinus mechanism Tachy-lalo syndrome History of coronary artery disease, mid LAD 30-40% stenosis, 50% plaque in the distal circumflex Chronic systolic heart failure, clinically euvolemic Dyslipidemia Hypertension PLAN Eliquis has been resumed. Resume entresto. Await Dr William evaluation, he will be here to see the patient today. Further recommendations to follow based upon clinical course. Nurse Practitioner note has been reviewed, I agree with a documented findings and plan of care. Patient was seen and examined. Objective - Vital Signs Vital signs: Vital Signs Temp 97.5 F L 12/15/20 08:00 Pulse 64 12/15/20 08:00 Resp 20 12/15/20 08:00 BP 168/89 12/15/20 08:00 Pulse Ox 94 L 12/15/20 08:00 Intake & Output 12/14/20 12/15/20 12/15/20 18:59 06:59 18:59 Intake Total 840 118 Output Total 150 700 Balance 690 -700 118 Weight 91.3 kg Intake: Oral 840 118 Output: Urine 150 700 Other: Voiding Method Urinal # Voids 1 - Labs CBC & Chem 7: 12/14/20 05:50 12/14/20 05:50
--- NOTE | 2020-12-15 10:25 | P.PN ---
Subjective Progress Note Date: 12/15/20 No new complaints. Awaiting EP evaluation for PPM Objective - Vital Signs Vital signs: Vital Signs Temp 97.5 F L 12/15/20 08:00 Pulse 64 12/15/20 08:00 Resp 20 12/15/20 08:00 BP 168/89 12/15/20 08:00 Pulse Ox 94 L 12/15/20 08:00 Intake & Output 12/14/20 12/15/20 12/15/20 18:59 06:59 18:59 Intake Total 840 118 Output Total 150 700 Balance 690 -700 118 Weight 91.3 kg Intake: Oral 840 118 Output: Urine 150 700 Other: Voiding Method Urinal # Voids 1 - Exam Gen: awake, alert HEENT: normocephalic, atraumatic, impaired hearing acuity, moist mucous membranes Resp: good air exchange, breathing comfortably with no accessory muscle use, clear to auscultation bilaterally without wheezes or crackles CVS: good distal perfusion x 4, irregular rate and rhythm GI: soft, NTTP, ND : no SPT, no CVAT, olivera catheter not present MSK: no pitting edema, no clubbing Neuro: non-focal, moving all extremities Psych: cooperative, euthymic mood - Labs CBC & Chem 7: 12/14/20 05:50 12/14/20 05:50 Assessment and Plan Assessment: A-Fib with RVR NSTEMI in a patient with history of CAD with ischemic cardiomyopathy Tachy-Lalo Syndrome -EKG showing A. fib with a RVR of 141 bpm with T-wave inversion in lateral leads I and aVL which is new finding when compared to EKG completed on 11/28/20. -Troponins revealed patient to be an NSTEMI with initial troponin 0.148, 3.260, and 6.400. -Cardiology following, [facility] 12/13 = LAD 20-30%, LCx 40%, RCA occluded -Initially required Cardizem infusion in which patient was weaned off and placed back on beta bret by cardiology. -off of AVN controlling agents given tachy-lalo syndrome -EP consult re: PPM implantation -Eliquis restared s/p [facility] -Continue telemetry monitoring -Continue daily aspirin and atorvastatin. Symptomatic hypotension, resolved Chronic systolic heart failure with a preserved EF of 40-45%, currently euvolemic Hx of HTN -Likely secondary to Dehydration from PO lasix at home complicated by A Fib with RVR -Patient presented with an initial blood pressure 70/51, patient was rehydrated with fluid bolus resulting in complete resolution of hypotension. -Entresto continued -Echocardiogram completed 10/26/20 revealing a preserved EF of 40-45% with diffuse septal wall hypokinesis. -Lasix held at this time. Hyperlipidemia - continue daily medication regimen with atorvastatin 40 mg nightly. BPH -Continue daily medication regimen with Flomax. Parkinson's disease -Continue daily medication regimen with carbidopa levodopa. -Provide safe and supportive care with assistance as needed. DVT PPx with Eliquis Pt warrants [facility] discussion but is currently FULL CODE
[2020-12-15] MEDS: SACUBITRIL/VALSARTAN 24 MG-26 MG TABLET PO SCH ×2 (11:15→21:10)
[2020-12-15] MEDS ORDERED: SODIUM CHLORIDE 0.9% 1,000 ML IV SCH (12:15)
[2020-12-15] MEDS: SODIUM CHLORIDE 0.9% 1,000 ML IV SCH (13:15)
--- NOTE | 2020-12-15 13:36 | P.EPCON ---
Electrophysiology Consult - EP Consult Electrophysiology Consult: This is Dr. 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 fib Continue anticoagulation HPI Patient presented with presyncope and severe shortness of breath He was found to be tachycardic in atrial fibrillation and at that time his blood pressure is quite low. His recent 2-D echo in October showed an ejection fraction of about 45% with mild mitral and mild tricuspid regurgitation In the hospital is been difficult to control atrial fibrillation since he becomes extremely bradycardic with amiodarone and beta blockers He is quite symptomatically from atrial fibrillation complaining of shortness of breath and he actually leaked troponins too Cardiac catheterization revealed LVEDP of 14, calcified coronary arteries with moderate disease in the LAD and left circumflex Occluded right coronary artery with collaterals from the left system ROS: No fever chills or rigors, no cough, phlegm or expectoration, no nausea, vomiting or diarrhea, no hematuria, dysuria, no musculoskeletal complaints, no strokes or seizures, no skin lesions. EXAMINATION: On examination his heart rate 7 the 50s, blood pressure is normal Heart sounds S1 and S2 are irregular but normal Telemetry shows PVCs Abdomen is soft Extremities are warm Chest area is clean No murmurs REVIEW OF LABS, ECG & MEDICAL DATA Labs are reviewed Normal white count of 5000, hemoglobin 10.6 Sodium normal, potassium normal, creatinine 1.08
[2020-12-15] MEDS ORDERED: ceFAZolin 1 GM in SODIUM CHLORIDE 0.9% 250 ML IRRIGATION PRN (15:45)
[2020-12-15] MEDS ORDERED: MIDAZOLAM 2 MG/2 ML VIAL ONE (16:03)
[2020-12-15] MEDS ORDERED: LIDOCAINE 1% INJ 10MG/ML (20 ML MDV) ONE (16:03)
[2020-12-15] MEDS ORDERED: fentaNYL (PF) 50 MCG/ML 2 ML AMP ONE (16:03)
[2020-12-15] MEDS ORDERED: PROPOFOL 10 MG/ML 20 ML VIAL IV ONE (16:03)
[2020-12-15] MEDS ORDERED: IV FLUID CONTINUATION 1,000 ML IV ONE (16:04)
[2020-12-15] MEDS ORDERED: ACETAMINOPHEN IV (For NPO) 1,000 MG in EMPTY BAG 1 BAG IVPB ONE (16:10)
[2020-12-15] MEDS ORDERED: ACETAMINOPHEN TAB 325 MG TAB PO PRN (16:10)
[2020-12-15] MEDS ORDERED: IOPAMIDOL-250 100ML BTL IV ONE (16:18)
[2020-12-15] MEDS ORDERED: LIDOCAINE 1% INJ 10MG/ML (20 ML MDV) SQ ONE (16:38)
--- NOTE | 2020-12-15 17:42 | P.EPPROC ---
- EP Procedure Note Electrophysiology Procedure Note: Left upper extremity venogram 15 mL IV dye injected in the left arm Patent left subclavian and axillary venous system Plan Proceed with dual-chamber pacemaker implantation for tachybradycardia syndrome/sick sinus node with severe bradycardia/paroxysmal A. fib with RVR and intolerance to beta blockers and amiodarone secondary to severe bradycardia
--- NOTE | 2020-12-15 17:49 | P.PRLE ---
RE: Anthony Manriquez Dear Dr. Ross Mr. Manriquez has tachybradycardia syndrome. He has very symptomatically A. fib with RVR but is unable to tolerate beta blockers and amiodarone. He had severe bradycardia on account of this and underwent dual-chamber pacemaker implantation successfully I have put him back on beta blockers and low-dose amiodarone He will continue anticoagulation and will follow with you and Dr. Alarcon as before Thank you for entrusting me with the care of the patient Warm regards Sincerely Shahriar William
--- NOTE | 2020-12-15 18:15 | CE ---
CARDIAC ELECTROPHYSIOLOGY REPORT Mr. Manriquez has sick sinus syndrome, tachy-lalo syndrome, paroxysmal atrial fibrillation with RVR, very symptomatic and intolerance to beta blockers and amiodarone with severe bradycardia. These medications were stopped and a dual-chamber pacemaker was recommended by Dr. Alarcon. Patient was brought to the EP lab in a fasting state. Written informed consent was obtained prior to the procedure. The left shoulder area was prepped and draped as per protocol. 1% lidocaine was used for local anesthesia. IV antibiotics were administered. A 4 cm incision was made parallel to the deltopectoral groove, about 1.5 cm medial to it. The incision was carried down to the level of the pectoralis muscle. A subfascial pocket was made. Hemostasis was assured. The left axillary vein was accessed at 2 separate points under fluoroscopy and via appropriately sized introducer sheaths 2 leads were positioned in the right heart. The atrial lead was a Medtronic 52 cm, model #5076 serial number [id number]. This was screwed in the right atrial appendage. Good current of injury. P-waves 1.6-2.5 mV, pacing impedance 444 ohms and pacing threshold 0.5 V at 0.4 milliseconds. 10 V test negative. The RV lead was positioned in the low RV septum. This was a Medtronic model #5076, serial number [id number]. R-waves 7-8 mV, pacing impedance 900 ohms and pacing threshold 0.4 V at 0.5 milliseconds. 10 V test negative. Both leads were secured to the pectoralis fascia using 2 nonabsorbable sutures. The pocket was irrigated with antibiotic solution. Leads were connected to the generator (Medtronic model number W3DR01, serial number [id number]. The leads and generator were then placed in subfascial pocket. The wound was closed in 3 layers and dressed per protocol. RESULTS: Successful dual-chamber pacemaker implantation for tachy-lalo syndrome. PLAN: Continue anticoagulation. Resume beta blockers and low-dose amiodarone. MMODL / IJN: [id number] /
[2020-12-15] MEDS: METOPROLOL SUCCINATE (ER) 25 MG TAB.ER.24H PO SCH (18:44)
--- NOTE | 2020-12-15 19:20 | XR ---
EXAMINATION TYPE: XR chest 1V portable DATE OF EXAM: 12/15/2020 COMPARISON: 12/09/2020. HISTORY: Pacemaker placement. TECHNIQUE: Single frontal view of the chest is obtained. FINDINGS: There is interval placement of a left-sided dual-lead pacemaker with leads overlying the r ight atrium and ventricle. There is mild bibasilar streaky opacity. No pleural effusion, or pneumotho rax seen. The cardiac silhouette size is within normal limits. The osseous structures are intact. IMPRESSION: Status post pacemaker. No pneumothorax. Probable mild atelectasis.
[2020-12-15] MEDS: AMIODARONE 200 MG TAB PO SCH (21:11)
[2020-12-15] MEDS: traZODone HCL 50 MG TAB PO PRN (23:38)
[2020-12-16] MEDS: METOPROLOL SUCCINATE (ER) 25 MG TAB.ER.24H PO SCH (08:28)
[2020-12-16] MEDS: AMIODARONE 200 MG TAB PO SCH ×2 (08:28→21:19)
[2020-12-16] MEDS: APIXABAN 2.5 MG TABLET PO SCH ×2 (08:28→21:19)
[2020-12-16] MEDS: MULTIVITAMINS, THERA 1 EACH TAB PO SCH (08:28)
[2020-12-16] MEDS: ASPIRIN 81 MG PO SCH (08:28)
[2020-12-16] MEDS: ATORVASTATIN 40 MG TAB PO SCH (08:28)
[2020-12-16] MEDS: SODIUM CHLORIDE 0.9% 1,000 ML IV SCH (08:29)
[2020-12-16] MEDS: CARBIDOPA-LEVODOPA 25-100 MG 1 EACH TAB PO SCH ×2 (08:29→21:19)
[2020-12-16] MEDS: TAMSULOSIN 0.4 MG CAP.ER.24H PO SCH (08:29)
[2020-12-16] MEDS: CARBIDOPA-LEVODOPA ER 25-100MG 1 EACH TABLET.ER PO SCH ×2 (08:34→21:19)
[2020-12-16] MEDS: SACUBITRIL/VALSARTAN 24 MG-26 MG TABLET PO SCH ×2 (08:34→21:45)
--- NOTE | 2020-12-16 09:04 | P.PN ---
Subjective This is a pleasant 85-year-old male past medical history significant for coronary artery disease, paroxysmal atrial fibrillation, dyslipidemia and hypertension. He follows in the office with Dr. Alarcon. He is seen and examined resting comfortably laying flat in bed in no acute distress. He has no symptoms of chest discomfort or shortness of breath. He is currently maintaining sinus mechanism. Telemetry tracings reveal his heart rate is resting between 45 and 50 for the most part. Blood pressure 136/74 heart rate 65 afebrile maintaining oxygen saturation on room air. Laboratory data reviewed, WBC 6.4, hemoglobin 11.6, platelets 139, sodium 140, potassium 4.6 and creatinine 0.95. Currently maintained on aspirin 81 mg daily, atorvastatin 40 mg daily and metoprolol 25 mg twice a day. Recent echocardiogram October of this year revealed impaired LV systolic function with ejection fraction 40-45%, basal inferior, basal inferior septal, mid inferior midinferior septal wall motion abnormalities, mild MR, mild TR. 12/15/2020 Pt seen and examined sitting up in bed in no acute distress. He denies chest pain, shortness of breath, dizziness or palpitations. He states he actually felt quite well this morning and slept a decent amount last night. Blood pressure 168/89 heart rate 64 afebrile and maintaining oxygen saturation on room air. He continues to be in atrial fibrillation with controlled rates. He does go back and forth from SR to afib sporadically. 12/16 Patient seen and examined. Patient did have a permanent pacemaker placed from the left subclavian approach yesterday. Patient tolerated the procedure well. Patient denies any pain at the site. There is minimal oozing around the site however appears clear and dry. Amiodarone and metoprolol were placed again last night. We will increase the Toprol to 50. Patient denies any chest pain or shortness of breath. There is some concern about his weakness and we will leave this up to the rehab and internal medicine. GENERAL: Well-appearing, well-nourished and in no acute distress. NECK: Supple without JVD or thyromegaly. LUNGS: Breath sounds clear to auscultation bilaterally. Respiration equal and unlabored. No wheezes, rales or rhonchi. HEART: Irregular rate and rhythm without murmurs, rubs or gallops. S1 and S2 heard. EXTREMITIES: Normal range of motion, no edema. No clubbing or cyanosis. Peripheral pulses intact. Right femoral access site soft, non-tender with no significant hematoma or ecchymosis. ASSESSMENT Non-ST elevated myocardial infarction Paroxysmal atrial fibrillation, currently maintaining sinus mechanism Tachy-lalo syndrome, S/p dual-chamber permanent pacemaker 12/15/2020 History of coronary artery disease, mid LAD 30-40% stenosis, 50% plaque in the distal circumflex Chronic systolic heart failure, clinically euvolemic Dyslipidemia Hypertension PLAN Patient appears stable from a cardiology perspective. We will increase his Toprol from 25-50. Continue with amiodarone. Much of his symptoms appear related to episodes of A. fib with RVR and hopefully after permanent pacemaker placement this will be better controlled. He does admit to some frailty and we will leave that up to internal medicine in terms a rehab. Patient stable for discharge from a cardiology standpoint. No further recommendations. Please call with any questions. Objective - Vital Signs Vital signs: Vital Signs Temp 98.1 F 12/16/20 08:00 Pulse 61 12/16/20 08:00 Resp 17 12/16/20 08:00 BP 121/70 12/16/20 08:00 Pulse Ox 95 12/16/20 08:00 Intake & Output 12/15/20 12/16/20 12/16/20 18:59 06:59 18:59 Intake Total 468 Output Total 700 750 Balance 468 -700 -750 Weight 89 kg Intake: IV 350 Oral 118 Output: Urine 700 750 Other: Voiding Method Urinal Urinal # Voids 1 # Bowel Movements 1 - Labs CBC & Chem 7: 12/14/20 05:50 12/14/20 05:50
[2020-12-16] MEDS: METOPROLOL SUCCINATE (ER) 50 MG TAB.ER.24H PO SCH (09:44)
[2020-12-16 11:10] VITALS: BMI 29.8
--- NOTE | 2020-12-16 11:14 | P.PN ---
Subjective Progress Note Date: 12/16/20 No new complaints. Doing well after his PPM. Plan is for rehab tomorrow. On metoprolol and amiodarone. Objective - Vital Signs Vital signs: Vital Signs Temp 98.1 F 12/16/20 08:00 Pulse 61 12/16/20 08:00 Resp 17 12/16/20 08:00 BP 121/70 12/16/20 08:00 Pulse Ox 95 12/16/20 08:00 Intake & Output 12/15/20 12/16/20 12/16/20 18:59 06:59 18:59 Intake Total 468 120 Output Total 700 1000 Balance 829 -700 -991 Weight 89 kg 89 kg Intake: IV 350 Oral 118 120 Output: Urine 700 1000 Other: Voiding Method Urinal Urinal # Voids 1 # Bowel Movements 1 - Exam Gen: awake, alert HEENT: normocephalic, atraumatic, impaired hearing acuity, moist mucous membranes Resp: good air exchange, breathing comfortably with no accessory muscle use, clear to auscultation bilaterally without wheezes or crackles CVS: good distal perfusion x 4, irregular rate and rhythm GI: soft, NTTP, ND : no SPT, no CVAT, olivera catheter not present MSK: no pitting edema, no clubbing, left arm in sling, PPM incision site is c/d/i Neuro: non-focal, moving all extremities Psych: cooperative, euthymic mood - Labs CBC & Chem 7: 12/14/20 05:50 12/14/20 05:50 Assessment and Plan Assessment: A-Fib with RVR NSTEMI in a patient with history of CAD with ischemic cardiomyopathy Tachy-Be Syndrome -EKG showing A. fib with a RVR of 141 bpm with T-wave inversion in lateral leads I and aVL which is new finding when compared to EKG completed on 11/28/20. -Troponins revealed patient to be an NSTEMI with initial troponin 0.148, 3.260, and 6.400. -Cardiology following, [facility] 12/13 = LAD 20-30%, LCx 40%, RCA occluded -Initially required Cardizem infusion in which patient was weaned off and placed back on beta bret by cardiology. -on metoprolol and amiodarone -EP consult re: PPM implantation; completed 7/30 -Eliquis restared s/p [facility] -Continue telemetry monitoring -Continue daily aspirin and atorvastatin. Symptomatic hypotension, resolved Chronic systolic heart failure with a preserved EF of 40-45%, currently euvolemic Hx of HTN -Likely secondary to Dehydration from PO lasix at home complicated by A Fib with RVR -Patient presented with an initial blood pressure 70/51, patient was rehydrated with fluid bolus resulting in complete resolution of hypotension. -Entresto continued -Echocardiogram completed 10/26/20 revealing a preserved EF of 40-45% with diffuse septal wall hypokinesis. -Lasix held at this time. Hyperlipidemia - continue daily medication regimen with atorvastatin 40 mg nightly. BPH -Continue daily medication regimen with Flomax. Parkinson's disease -Continue daily medication regimen with carbidopa levodopa. -Provide safe and supportive care with assistance as needed. DVT PPx with Eliquis Pt warrants [facility] discussion but is currently FULL CODE
[2020-12-16] MEDS: ALPRAZolam 0.25 MG TAB PO PRN (22:50)
[2020-12-17] MEDS: SODIUM CHLORIDE 0.9% 1,000 ML IV SCH (04:48)
[2020-12-17] MEDS: TAMSULOSIN 0.4 MG CAP.ER.24H PO SCH (08:24)
[2020-12-17] MEDS: METOPROLOL SUCCINATE (ER) 50 MG TAB.ER.24H PO SCH (08:24)
[2020-12-17] MEDS: AMIODARONE 200 MG TAB PO SCH (08:24)
[2020-12-17] MEDS: MULTIVITAMINS, THERA 1 EACH TAB PO SCH (08:24)
[2020-12-17] MEDS: CARBIDOPA-LEVODOPA ER 25-100MG 1 EACH TABLET.ER PO SCH (08:24)
[2020-12-17] MEDS: SACUBITRIL/VALSARTAN 24 MG-26 MG TABLET PO SCH (08:24)
[2020-12-17] MEDS: ATORVASTATIN 40 MG TAB PO SCH (08:24)
[2020-12-17] MEDS: CARBIDOPA-LEVODOPA 25-100 MG 1 EACH TAB PO SCH (08:24)
[2020-12-17] MEDS: APIXABAN 2.5 MG TABLET PO SCH (10:00)
[2020-12-17] MEDS: ASPIRIN 81 MG PO SCH (10:00)
--- NOTE | 2020-12-17 10:04 | P.PN ---
Subjective This is a pleasant 85-year-old male past medical history significant for coronary artery disease, paroxysmal atrial fibrillation, dyslipidemia and hypertension. He follows in the office with Dr. Alarcon. He is seen and examined resting comfortably laying flat in bed in no acute distress. He has no symptoms of chest discomfort or shortness of breath. He is currently maintaining sinus mechanism. Telemetry tracings reveal his heart rate is resting between 45 and 50 for the most part. Blood pressure 136/74 heart rate 65 afebrile maintaining oxygen saturation on room air. Laboratory data reviewed, WBC 6.4, hemoglobin 11.6, platelets 139, sodium 140, potassium 4.6 and creatinine 0.95. Currently maintained on aspirin 81 mg daily, atorvastatin 40 mg daily and metoprolol 25 mg twice a day. Recent echocardiogram October of this year revealed impaired LV systolic function with ejection fraction 40-45%, basal inferior, basal inferior septal, mid inferior midinferior septal wall motion abnormalities, mild MR, mild TR. 12/15/2020 Pt seen and examined sitting up in bed in no acute distress. He denies chest pain, shortness of breath, dizziness or palpitations. He states he actually felt quite well this morning and slept a decent amount last night. Blood pressure 168/89 heart rate 64 afebrile and maintaining oxygen saturation on room air. He continues to be in atrial fibrillation with controlled rates. He does go back and forth from SR to afib sporadically. 12/16 Patient seen and examined. Patient did have a permanent pacemaker placed from the left subclavian approach yesterday. Patient tolerated the procedure well. Patient denies any pain at the site. There is minimal oozing around the site however appears clear and dry. Amiodarone and metoprolol were placed again last night. We will increase the Toprol to 50. Patient denies any chest pain or shortness of breath. There is some concern about his weakness and we will leave this up to the rehab and internal medicine. 12/17 Patient seen and examined. Patient with some mild bleeding around his incision yesterday and a sandbag was placed with improvement. His anticoagulation was held. We will continue to hold for the next 3 days and then re-start. Denies any chest pain or pressure. No shortness breath. States he feels great. Awaiting rehab. GENERAL: Well-appearing, well-nourished and in no acute distress. NECK: Supple without JVD or thyromegaly. LUNGS: Breath sounds clear to auscultation bilaterally. Respiration equal and unlabored. No wheezes, rales or rhonchi. HEART: Irregular rate and rhythm without murmurs, rubs or gallops. S1 and S2 heard. EXTREMITIES: Normal range of motion, no edema. No clubbing or cyanosis. Peripheral pulses intact. Right femoral access site soft, non-tender with no significant hematoma or ecchymosis. ASSESSMENT Non-ST elevated myocardial infarction Paroxysmal atrial fibrillation, currently maintaining sinus mechanism Tachy-lalo syndrome, S/p dual-chamber permanent pacemaker 12/15/2020 History of coronary artery disease, mid LAD 30-40% stenosis, 50% plaque in the distal circumflex Chronic systolic heart failure, clinically euvolemic Dyslipidemia Hypertension PLAN Incision site appears stable. Hold anticoagulation for 3 days and then restart. Continue with current regimen. Patient stable for discharge from cardiac standpoint. Please call with any questions. Objective - Vital Signs Vital signs: Vital Signs Temp 98.0 F 12/17/20 08:22 Pulse 70 12/17/20 08:22 Resp 18 12/17/20 08:22 BP 131/73 12/17/20 08:22 Pulse Ox 92 L 12/17/20 08:22 Intake & Output 12/16/20 12/17/20 12/17/20 18:59 06:59 18:59 Intake Total 360 300 240 Output Total 1450 200 575 Balance -1090 100 -335 Weight 89 kg 98 kg Intake: Intake, IV Titration 300 Amount ceFAZolin 2 gm In Sodium 300 Chloride 0.9% 50 ml @ 100 mls/hr IVPB ONCE PRN Rx# :[id number] Oral 360 240 Output: Urine 1450 200 575 Other: Voiding Method Urinal # Voids 1 - Labs CBC & Chem 7: 12/14/20 05:50 12/14/20 05:50
--- NOTE | 2020-12-17 11:07 | P.DS ---
Providers Date of admission: 12/09/20 12:24 Expected date of discharge: 12/17/20 Attending physician: Fred Obregon MD Consults: 12/13/20 14:00 Consult Physician Routine Consulting Provider: Shahriar William Consult Reason/Comments: afib Do you want consulting provider notified?: Already Contacted Primary care physician: Cira Ross MD Hospital Course: A-Fib with RVR NSTEMI in a patient with history of CAD with ischemic cardiomyopathy Tachy-Be Syndrome Patient was admitted with hypotension and AFib with RVR. He also had elevation of troponins up to 6.4. EKG showed A. fib with a RVR of 141 bpm with T-wave inversion in lateral leads I and aVL which is new finding when compared to EKG completed on 11/28/20. Cardiology consuled and patient under went [facility] on 12/13 = LAD 20-30%, LCx 40%, RCA occluded. Initially required Cardizem infusion for AFib but was weaned off and placed back on beta bret by cardiology. EP con sulted re: PPM implantation for tachy-be syndrome, and this was completed 12/16, after which patient remained on metoprolol and amiodarone. Eliquis restared s/p [facility]. Continued daily aspirin and atorvastatin. Pt will follow up with cardiology and EP on discharge. Symptomatic hypotension, resolved Chronic systolic heart failure with a preserved EF of 40-45%, currently euvo lemic Hx of HTN Likely secondary to Dehydration from PO lasix at home complicated by A Fib with RVR. Patient presented with an initial blood pressure 70/51, patient was rehydrated with fluid bolus resulting in complete resolution of hypotension. Entresto restarted. Echocardiogram completed 10/26/20 revealing a preserved EF of 40-45% with diffuse septal wall hypokinesis. Lasix held throughout admission, and d/c'd on discharge. Hyperlipidemia - continued daily medication regimen with atorvastatin 40 mg nightly. BPH -Continued daily medication regimen with Flomax. Parkinson's disease -Continued daily medication regimen with carbidopa levodopa. I spent 38 minutes coordinating this complex discharge. Assessment: Gen: awake, alert HEENT: normocephalic, atraumatic, impaired hearing acuity, moist mucous membranes Resp: good air exchange, breathing comfortably with no accessory muscle use, clear to auscultation bilaterally without wheezes or crackles CVS: good distal perfusion x 4, irregular rate and rhythm GI: soft, NTTP, ND : no SPT, no CVAT, olivera catheter not present MSK: no pitting edema, no clubbing, left arm in sling, PPM incision site is c/d/i Neuro: non-focal, moving all extremities Psych: cooperative, euthymic mood Patient Condition at Discharge: Good Plan - Discharge Summary Discharge Rx Participant: No New Discharge Prescriptions: New Metoprolol Succinate (ER) [Toprol XL] 50 mg PO DAILY #30 tab.er.24h Amiodarone [Cordarone] 200 mg PO BID #60 tab Continue Acetaminophen Tab [Tylenol] 1,000 mg PO Q6H PRN PRN Reason: Pain Carbidopa-Levodopa 25-100 mg [Sinemet 25-100 mg] 1 tab PO BID Multivitamins, Thera [Multivitamin (formulary)] 1 tab PO DAILY Apixaban [Eliquis] 2.5 mg PO BID tablet Atorvastatin [Lipitor] 40 mg PO DAILY Carbidopa-Levodopa ER 25-100Mg [Sinemet CR 25-100 mg] 1 tab PO BID traZODone HCL 50 mg PO HS PRN PRN Reason: Insomnia Aspirin 81 mg PO DAILY chew Sacubitril/Valsartan [Entresto 24 mg-26 mg Tablet] 1 tab PO BID Tamsulosin HCl [Flomax] 0.4 mg PO DAILY Discontinued Furosemide [Lasix] 20 mg PO DAILY 30 Days #30 tab Discharge Medication List Acetaminophen Tab [Tylenol] 1,000 mg PO Q6H PRN 10/04/13 [History] Carbidopa-Levodopa 25-100 mg [Sinemet 25-100 mg] 1 tab PO BID 04/26/15 [History] Multivitamins, Thera [Multivitamin (formulary)] 1 tab PO DAILY 04/26/15 [History] Apixaban [Eliquis] 2.5 mg PO BID tablet 05/01/15 [Rx] Atorvastatin [Lipitor] 40 mg PO DAILY 08/01/15 [History] Carbidopa-Levodopa ER 25-100Mg [Sinemet CR 25-100 mg] 1 tab PO BID 10/25/20 [History] traZODone HCL 50 mg PO HS PRN 10/25/20 [History] Aspirin 81 mg PO DAILY chew 10/28/20 [Rx] Sacubitril/Valsartan [Entresto 24 mg-26 mg Tablet] 1 tab PO BID 11/21/20 [History] Tamsulosin HCl [Flomax] 0.4 mg PO DAILY 12/09/20 [History] Amiodarone [Cordarone] 200 mg PO BID #60 tab 12/17/20 [Rx] Metoprolol Succinate (ER) [Toprol XL] 50 mg PO DAILY #30 tab.er.24h 12/17/20 [Rx] Follow up Appointment(s)/Referral(s): Cira Ross MD [Primary Care Provider] - 1-2 days Discharge Disposition: TRANSFER TO SNF/ECF
[2020-12-17 12:09] VITALS: BP 128/73; PULSE 62; RESP 16; TEMP 98.1
== END 2020-12-17 14:52 | DRG 243 ==
LOC: EC 09:59 → 3SCARD 12:24 → 2SICU 17:56 → 3SCARD 17:57
PROVIDERS: ADMIT Internal Medicine; ATTEND Internal Medicine
PROC: B246ZZ4 Ultrasonography of Right and Left Heart, Transesophageal (ICD-10-PCS; 2020-12-12)
PROC: 02703ZZ Dilation of Coronary Artery, One Artery, Percutaneous Approach (ICD-10-PCS; 2020-12-13)
PROC: B2151ZZ Fluoroscopy of Left Heart using Low Osmolar Contrast (ICD-10-PCS; 2020-12-13)
PROC: B2111ZZ Fluoroscopy of Multiple Coronary Arteries using Low Osmolar Contrast (ICD-10-PCS; 2020-12-13)
PROC: 4A023N7 Measurement of Cardiac Sampling and Pressure, Left Heart, Percutaneous Approach (ICD-10-PCS; principal; 2020-12-13 09:00)
PROC: 0JH606Z Insertion of Pacemaker, Dual Chamber into Chest Subcutaneous Tissue and Fascia, Open Approach (ICD-10-PCS; 2020-12-15)
PROC: 02H63JZ Insertion of Pacemaker Lead into Right Atrium, Percutaneous Approach (ICD-10-PCS; 2020-12-15)
PROC: 02HK3JZ Insertion of Pacemaker Lead into Right Ventricle, Percutaneous Approach (ICD-10-PCS; 2020-12-15)
PROC: 3E0102A Introduction of Anti-Infective Envelope into Subcutaneous Tissue, Open Approach (ICD-10-PCS; 2020-12-15)
PROC: B5171ZA Fluoroscopy of Left Subclavian Vein using Low Osmolar Contrast, Guidance (ICD-10-PCS; 2020-12-15)
PROC: B51N1ZA Fluoroscopy of Left Upper Extremity Veins using Low Osmolar Contrast, Guidance (ICD-10-PCS; 2020-12-15)
PROC: B24BZZZ Ultrasonography of Heart with Aorta (ICD-10-PCS; 2020-12-15)
DX: I21.4 Non-ST elevation (NSTEMI) myocardial infarction (principal); I13.0 Hypertensive heart and chronic kidney disease with heart failure and stage 1 through stage 4 chronic kidney disease, or unspecified chronic kidney disease; I50.22 Chronic systolic (congestive) heart failure; I95.9 Hypotension, unspecified; E78.5 Hyperlipidemia, unspecified; N18.30 Chronic kidney disease, stage 3 unspecified; E86.0 Dehydration; G20 Parkinson's disease; H91.90 Unspecified hearing loss, unspecified ear; I08.8 Other rheumatic multiple valve diseases; I25.10 Atherosclerotic heart disease of native coronary artery without angina pectoris; I25.41 Coronary artery aneurysm; I25.5 Ischemic cardiomyopathy; R55 Syncope and collapse; I08.1 Rheumatic disorders of both mitral and tricuspid valves; I48.0 Paroxysmal atrial fibrillation; I49.5 Sick sinus syndrome; N40.0 Benign prostatic hyperplasia without lower urinary tract symptoms; Z79.01 Long term (current) use of anticoagulants; Z79.82 Long term (current) use of aspirin; Z79.899 Other long term (current) drug therapy; Z87.891 Personal history of nicotine dependence
CPT/HCPCS: 33208; 36415; 71045; 80048; 80053; 81001; 83735; 83880; 84443; 84484; 85025; 85027; 85610; 85730; 93005; 93306; 93458; 94760; 96365; 96366; 96375; 99291